=== PATIENT | female | born 1975 | race Caucasian/White ===

== ENCOUNTER 2019-08-27 18:38 | Emergency (ER) | payer MEDICARE, SELFPAY ==
[2019-08-27 19:17] VITALS: BP 140/91; PULSE 91; RESP 18; TEMP 36.9; O2SAT 100; BMI 32.5
[2019-08-27 19:19] VITALS: BP 140/91; PULSE 91; RESP 18; TEMP 36.9; O2SAT 100; BMI 32.5
--- NOTE | 2019-08-27 19:28 | CT_ITS ---
PROCEDURE: CT ABDOMEN PELVIS WO CON CLINICAL INDICATION: r/o stone Right flank pain, nausea and vomiting, history of previous kidney stones COMPARISON: No exams were available for comparison TECHNIQUE: Axial images obtained with sagittal and coronal reformats. All CT scans at the facility use one or more dose reduction, viz: automated exposure control, ma/kV adjustment per patient size (including targeted exams where dose is matched to indication, i.e. head), or iterative reconstruction technique. FINDINGS: Lower thorax: No acute finding ABDOMEN: Liver: No masses or biliary dilatation. Gallbladder: Nondistended. No radio opaque stones. Pancreas: No masses or peripancreatic fluid collections. Spleen: unremarkable Adrenals: unremarkable Kidneys/ureters: unremarkable ABDOMEN & PELVIS: Stomach bowel: There is a gastric lap band noted with a moderate amount of ingested food particles in the stomach above the level of the gastric lap band. This suggests that the left band has slipped inferiorly from its original placement. There is a moderate size sliding hiatal hernia. Small bowel appears normal. There is large amount stool in the ascending colon hepatic flexure and transverse colon. The descending and sigmoid colon are decompressed. Peritoneum: No abnormal fluid collections. No obvious inflammatory changes. No free air. There is a tiny umbilical hernia containing fat only. Lymph nodes: No enlarged lymph nodes apparent. Vasculature: No evidence of abdominal aortic aneurysm. No retroperitoneal hemorrhage evident. Bones: No acute fracture PELVIS: Reproductive: unremarkable Bladder: The urinary bladder is partially decompressed, there is no free fluid in the pelvis. Appendix: Post appendectomy. IMPRESSION: Apparent slippage of the gastric lap band as noted large amount of right-sided stool as indicated, no renal or ureteral calculi identified. Dictated by: Dr. Omer Carter MD 08/28/2019 08:[address] Omer Carter MD in [place] 08/28/2019 08:23
[2019-08-27 19:33] LABS: Microscopic, Urine URINE MICROSCOPIC (MICROSCOPIC)
[2019-08-27 19:38] LABS: Basophils % 0.4 % (0.1-2.0); Eosinophils # 0.3 K/mm3 (0.0-0.4); Eosinophils % 3.9 % (0.1-12.0); Lymphocytes # 2.2 K/mm3 (0.7-4.5); Lymphocytes % 34.1 % (10-50); Mean Corpuscular HGB Conc 28.5 g/dL (31.8-35.4); Mean Corpuscular Hemoglobin 16.5 pg (27.0-31.2); Mean Platelet Volume 7.7 fl (7.4-10.4); Monocytes # 0.3 K/mm3 (0.1-1.0); Monocytes % 4.8 % (1.7-9.3); Neutrophils # 3.6 K/mm3 (1.8-7.8); Neutrophils % 56.9 % (37.0-80.0); Platelet Count 442 K/mm3 (142-424); Red Cell Distribution Width 18.1 % (11.5-17.5); White Blood Count 6.4 K/mm3 (4.8-10.8)
[2019-08-27 19:39] LABS: Appearance,Urine SL CLOUDY (Clear); Blood, Urine Negative (Negative); Color,Urine YELLOW (Yellow); Glucose,Urine (UA) Negative (Negative); Ketones,Urine TRACE (Negative); Leukocyte Esterase,Urine Negative (Negative); Nitrate,Urine Negative (Negative); PH,Urine 6.5 (5.0-8.5); Protein,Urine Negative (Negative); Urobilinogen,Urine 0.2 EU/dl (0.2)
[2019-08-27 19:46] LABS: Hematocrit 27.2 % (37.0-47.0); Hemoglobin 7.8 g/dL (12.2-16.2)
[2019-08-27 19:48] LABS: Alanine Aminotransferase 9 U/L (12-78); Albumin Level 4.3 g/dl (3.5-5.0); Albumin/Globulin Ratio 1.2 (1.1-1.8); Alkaline Phosphatase 93 U/L (38-126); Anion Gap 11.6 mEq/L (5-15); Aspartate Amino Transferase 23 U/L (14-36); Bilirubin,Total 0.2 mg/dl (0.2-1.3); Blood Urea Nitrogen 7 mg/dl (7-17); Calcium 9.8 mg/dl (8.4-10.2); Carbon Dioxide 31 mmol/L (22.0-30.0); Chloride 97 mmol/L (98-107); Creatinine Clearance Estimated 197 mL/min (50-200); Estimated Glomerular Filt Rate 135 ml/min (>60); GFR (African American) 163 ML/MIN (>60); Globulin 3.7 g/dL (1.3-3.2); Glucose 112 mg/dl (74-100); Potassium 3.6 mmoL/L (3.5-5.1); Sodium 136 mmol/L (136-145)
[2019-08-27 19:49] LABS: Bilirubin,Urine Negative (Negative)
--- NOTE | 2019-08-27 19:49 | HMH.EDGENADL ---
ED Disposition Condition on Discharge: Good - Critical Care Critical Care Time: No <Edmundo Horner - Last Filed: 08/27/19 19:49> <James Umanzor - Last Filed: 08/28/19 00:31> Clinical Impression: Abdominal pain Qualifiers: Abdominal location: right upper quadrant Qualified Code(s): R10.11 - Right upper quadrant pain Anemia Qualifiers: Anemia type: unspecified type Qualified Code(s): D64.9 - Anemia, unspecified Disposition: Home, Self-Care Instructions: DI for Acute Pain -- Adult Additional Instructions: call pcp thursday for close follow up Referrals: James Kelley [Primary Care Provider] - Attestation: On 08/27/19, the high probability of a clinically significant, sudden or life threatening deterioration of the following system(s) required my full and direct attention, intervention and personal management. The time I documented below is in addition to time spent performing reported procedures but includes the following listed in this critical care notation. Medical Decision Making - Medical Records Medical records reviewed: Yes: I reviewed the patient's medical records. - Ron Inquiry Pt receiving controlled substance: No - Lab Data Lab results reviewed: Yes: I reviewed the patient's lab results. Result diagrams: 08/27/19 19:05 08/27/19 19:05 <Edmundo Horner - Last Filed: 08/27/19 19:49> - Lab Data Result diagrams: 08/27/19 19:05 08/27/19 19:05 - CT Data CT Scan: Abdomen, Pelvis Time Received: 00:[address] Reviewed: Yes: I have viewed the radiologist's interpretation Preliminary Findings: Abnormal (see report) <James Umanzor S - Last Filed: 08/28/19 00:31> Vital Signs: 08/27/19 19:17 08/27/19 19:19 08/27/19 20:24 Temperature 98.4 F 98.4 F Temperature Source Oral Oral Pulse Rate [Right Brachial] 91 H 91 H 81 Respiratory Rate 18 18 16 Blood Pressure [Right Arm] 140/91 H 140/91 H 128/80 Blood Pressure Mean [Right Arm] 107 107 96 Blood Pressure Source [Right Arm] Automatic Cuff Automatic Cuff Blood Pressure Position [Right Arm] Sitting Sitting 02 Sat by Pulse Oximetry 100 100 100 Oxygen Delivery Method Room Air Room Air Room Air 06/20/20 23:37 Temperature Temperature Source Pulse Rate [Right Brachial] 75 Respiratory Rate Blood Pressure [Right Arm] 165/72 H Blood Pressure Mean [Right Arm] 103 Blood Pressure Source [Right Arm] Blood Pressure Position [Right Arm] 02 Sat by Pulse Oximetry 100 Oxygen Delivery Method Room Air - Lab Data Lab Results 08/27/19 18:45: Urine HCG, Qual Negative 08/27/19 19:05: Urine Color Yellow, Urine Appearance Sl cloudy, Urine pH 6.5, Ur Specific [place] 1.020, Urine Protein Negative, Urine Glucose (UA) Negative, Urine Ketones Trace, Urine Blood Negative, Urine Nitrate Negative, Urine Bilirubin Negative, Urine Urobilinogen 0.2, Ur Leukocyte Esterase Negative, Ur Squamous Epith Cells 5-10 08/27/19 19:05: WBC 6.4, RBC 4.70, Hgb 7.8 L*, Hct 27.2 L, MCV 58.0 L, MCH 16.5 L, MCHC 28.5 L, RDW 18.1 H, Plt Count 442 H, MPV 7.7, Neut % (Auto) 56.9, Lymph % (Auto) 34.1, [place] % (Auto) 4.8, Eos % (Auto) 3.9, Baso % (Auto) 0.4, Neut # (Auto) 3.6, Lymph # (Auto) 2.2, [place] # (Auto) 0.3, Eos # (Auto) 0.3, Baso # (Auto) 0.0 08/27/19 19:05: Sodium 136, Potassium 3.6, Chloride 97 L, Carbon Dioxide 31 H, Anion Gap 11.6, BUN 7, Creatinine 0.50 L, Estimated Creat Clear 197, Estimated GFR 135, Est GFR ( Amer) 163, Glucose 112 H, Calcium 9.8, Total Bilirubin 0.2, AST 23, ALT 9 L, Alkaline Phosphatase 93, Total Protein 8.0, Albumin 4.3, Globulin 3.7 H, Albumin/Globulin Ratio 1.2 08/27/19 19:05: Amylase 52 08/27/19 19:05: Lipase 11 L Orders (Tests/Meds): ED MEDICATIONS Generic Name Dose Route Start Last Admin Trade Name Freq PRN Reason Stop Dose Admin Sodium Chloride 1,000 mls @ 999 mls/hr 08/27/19 19:30 08/27/19 19:32 Sod Chlor 0.9% 1000ml Bag IV 08/27/19 20:30 999 mls/hr .Q1H1M MCKENNA Administration Sodium Chloride 500 mls @ 9
[2019-08-27 20:24] VITALS: BP 128/80; PULSE 81; RESP 16; O2SAT 100
--- NOTE | 2019-08-27 20:38 | PC.NURSE ---
urine preg added. lab notified.
[2019-08-27 20:46] LABS: Urine Pregnancy, HCG Qual. Negative (Negative)
--- NOTE | 2019-08-27 20:47 | PC.NURSE ---
rad notified of neg test
--- NOTE | 2019-08-27 21:50 | CT_ITS ---
PROCEDURE: CT ABDOMEN with oral contrast CLINICAL INDICATION: abd pain COMPARISON: CT scan abdomen and pelvis without contrast same date TECHNIQUE: IV Contrast: 1 Oral Contrast 20ml Gastroview Axial images obtained with sagittal and coronal reformats. All CT scans at the facility use one or more dose reduction, viz: automated exposure control, ma/kV adjustment per patient size (including targeted exams where dose is matched to indication, i.e. head), or iterative reconstruction technique. FINDINGS: Lower thorax: No acute finding ABDOMEN: Liver: No masses or biliary dilatation. Gallbladder: Nondistended. No radio opaque stones. Pancreas: No masses or peripancreatic fluid collections. Spleen: unremarkable Adrenals: unremarkable Kidneys/ureters: unremarkable ABDOMEN : Stomach bowel: Oral contrast opacifies the stomach mixed with moderate amount of ingested food particles and fluid. As mentioned previously the gastric lap band has slipped inferiorly but there is no definite evidence of erosion of the band through the gastric wall and there is no leakage of oral contrast. A moderate size sliding hiatal hernia is noted. The visualized portion of the contrast filled small bowel appears normal. There is a large amount stool in the ascending colon. The lower descending and sigmoid colon are not included on the images. Peritoneum: No abnormal fluid collections. No obvious inflammatory changes. No free air. There is a tiny umbilical hernia containing fat only. Lymph nodes: No enlarged lymph nodes apparent. Vasculature: No evidence of abdominal aortic aneurysm. No retroperitoneal hemorrhage evident. Bones: Mild degenerate changes lower lumbar spine. IMPRESSION: The gastric lap band has slipped to the midportion of the body of the stomach but there is no evidence of erosion of the band through the gastric wall, large amount of ingested food particles are seen proximal to the gastric lap band Dictated by: Dr. Omer Carter MD 08/28/2019 09:[address] Omer Carter MD in [place] 08/28/2019 09:48
[2019-08-27 22:00] LABS: Amylase 52 U/L (30-110); Lipase 11 U/L (23-300)
[2019-08-27 23:37] VITALS: BP 165/72; PULSE 75; O2SAT 100
--- NOTE | 2019-08-28 00:18 | PC.NURSE ---
MD at the bedside discussing test results with patient.
[2019-08-28 00:25] LABS: Occult Blood,Stool Negative (Negative)
[2019-08-28 00:34] VITALS: BP 140/55; PULSE 111; RESP 17; TEMP 36.8; O2SAT 99
== END 2019-08-28 00:37 | disposition home or self-care (01) ==
PROVIDERS: Emergency Medicine; Emergency Provider Family Medicine; PCP Internal Medicine Cardiovascular Disease
DX: R10.11 Right upper quadrant pain (principal); R10.31 Right lower quadrant pain; D64.9 Anemia, unspecified
CPT/HCPCS: 74150; 74176; 80053; 81001; 81025; 82150; 82272; 83690; 85025; 96365; 96366; 96375; 99283; 99284; G0328; J2405

== ENCOUNTER 2020-10-25 13:38 | Emergency (ER) | payer MEDICARE, SELFPAY ==
[2020-10-25 13:39] VITALS: BP 135/42; PULSE 80; RESP 16; TEMP 37.1; O2SAT 100; BMI 26.6
--- NOTE | 2020-10-25 14:54 | HMH.EDUTC ---
[facility] [place] Clinical Impression: Bronchitis Pharyngitis Qualifiers: Pharyngitis/tonsillitis etiology: unspecified etiology Qualified Code(s): J02.9 - Acute pharyngitis, unspecified Disposition: Home, Self-Care Condition on Discharge: Good Instructions: DI for Pharyngitis/Tonsillopharyngitis -- Adult, Preventing the Spread of Coronavirus Discharge Instructions Additional Instructions: Drink plenty of fluids. Take tylenol or ibuprofen for pain or fever. Take the medications as directed. Follow up with your regular doctor. GO TO THE ER FOR ANY WORSENING SYMPTOMS Quarantine until you know the results of your covid-19 test. If it is positive, the health department should call you and give you further instructions about your length of Quarantine and other thing. Prescriptions: Brompheniramine/Pseudoephed/Dm [Bromfed Dm Cough Syrup] 5 ml PO Q6HP PRN #240 syrup PRN Reason: Cough Transmission Status: Received by [facility]/pharmacy #[id number] Amoxicillin/Potassium Clav [Augmentin 500mg tab] 500 mg PO TID #30 tab Transmission Status: Received by [facility]/pharmacy #[id number] predniSONE [Deltasone 10mg tablet] 10 mg PO BID 3 Days #6 tab Transmission Status: Received by [facility]/pharmacy #[id number] Referrals: James Kelley [Primary Care Provider] - Forms: Work/School Release Time of Disposition: 14:59 Medical Decision Making - Medical Records Medical records reviewed: No: I reviewed the patient's medical records. - Ron Inquiry Pt receiving controlled substance: No Vital Signs: 10/25/20 13:39 10/25/20 15:04 Temperature 98.8 F 98.8 F Temperature Source Oral Pulse Rate 80 Pulse Rate [Right] 80 Respiratory Rate 16 16 Blood Pressure 135/42 L Blood Pressure [Right Arm] 135/42 L Blood Pressure Mean [Right Arm] 73 02 Sat by Pulse Oximetry 100 - Lab Data Lab results reviewed: Yes: I reviewed the patient's lab results. [facility] [place] - General Stated complaint: throat sore and swollen Time Seen by Provider: 10/25/20 14:54 Description of Symptoms (Recalled from Triage Doc. by RN): pt c/o sore throat and coughing up yellow HEENT Symptoms (Recalled from RN notes): Yes Resp Symptoms (Recalled from RN notes): Yes Skin Symptoms (Recalled from RN notes): No MS Symptoms (Recalled from RN notes): No Functional Status (Recalled from RN notes): na - History of Present Illness Provider Complaint: She c/o sore throat, cough and congestion for the past 3 days. - Related Data Previous Rx's Medication Instructions Recorded amoxicillin 500 mg tablet 500 mg PO BID 10 Days #20 tab 11/15/19 Amoxicillin/Potassium Clav 500 mg PO TID #30 tab 10/25/20 [Augmentin 500mg tab] Brompheniramine/Pseudoephed/Dm 5 ml PO Q6HP PRN #240 syrup 10/25/20 [Bromfed Dm Cough Syrup] predniSONE [Deltasone 10mg tablet] 10 mg PO BID 3 Days #6 tab 10/25/20 Allergies Allergy/AdvReac Type Severity Reaction Status Date / Time No Known Allergies Allergy Verified 11/15/19 20:18 - Worker's Comp Is this a Worker's Comp case?: No [facility] History - Hepatitis A Screen Drug use history?: No High risk sexual behaviors?: No History of sexually transmitted infection?: No Currently employed?: No Childcare worker?: No Do you have indoor plumbing?: No Do you have electricity?: No Attestation statement:: This patient has been screened for Hepatitis A risk factors. I have reviewed the patient's past medical history: Yes Other Surgeries: Yes: No Previous Surgery - Social History Smoking Status: Never smoker Alcohol Intake: never Alcohol Intake Frequency:: 0-2 drinks per day Substance Use Type: denies use Occupational Status: other Housing: house Household Members: family Family Hx:: No significant family history ROS Obtained: Yes All systems reviewed & no additional complaints - Constitutional Constitutional: Reports as per HPI - Eyes Eyes: Denies eye discharge - ENT Ears, Nose, Mouth, and Throat: Reports as per HP
[2020-10-25 15:04] VITALS: BP 135/42; PULSE 80; RESP 16; TEMP 37.1; O2SAT 100
== END 2020-10-25 15:12 | disposition home or self-care (01) ==
PROVIDERS: Emergency Provider Nurse Practitioner Family; PCP Internal Medicine Cardiovascular Disease
DX: J20.9 Acute bronchitis, unspecified (principal); Z20.822 Contact with and (suspected) exposure to COVID-19
CPT/HCPCS: G0463; 99202; U0003

== ENCOUNTER 2022-04-24 11:11 | Inpatient (IN) | payer MEDICARE, MEDICAID, SELFPAY ==
[2022-04-24] VITALS (29 sets, daily range): BP systolic 112–153; BP diastolic 44–98; PULSE 87–117; RESP 13–24; TEMP 36.6–37.4; O2SAT 95–105; BMI 26.1; BMI 24.6
--- NOTE | 2022-04-24 11:09 | ECG_ITS ---
APPROVED REPORT Exam: Resting ECG HR:103 bpm ECG Measurements Heart Rate 103 AXES IN 122 P 65 QRSd 81 QRS 49 QT 309 T 74 QTc 369 Conclusion SINUS TACHYCARDIA ABNORMAL RHYTHM ECG UNCONFIRMED REPORT Electronically signed by : Randolph Curtis MD 04/25/2022 08:58:16
--- NOTE | 2022-04-24 11:13 | XR_ITS ---
FINAL REPORT CLINICAL HISTORY: CP, SOA, weakness x 1 wk w fever FINDINGS: A portable view of the chest is obtained. Cardiac and mediastinal silhouettes are normal. There is right basilar opacity, favor atelectasis however early pneumonia is not excluded. Otherwise lungs are clear. There is no pleural effusion or pneumothorax. IMPRESSION: Right basilar opacity, favor atelectasis however early pneumonia is not excluded. Reviewed, Interpreted and Dictated by Rosalina Mcpherson MD Transcribed by Janell Orozco Authenticated and [facility]
--- NOTE | 2022-04-24 11:41 | PC.NURSE ---
rad here for port cxr
--- NOTE | 2022-04-24 11:42 | PC.NURSE ---
Radiology doing chest xray in room.
[2022-04-24 11:44] LABS: Basophils # 0.2 K/mm3 (0-0.2); Basophils % 1.4 % (0.1-2.0); Eosinophils # 0.5 K/mm3 (0.0-0.4); Eosinophils % 3.6 % (0.1-12.0); Lymphocytes # 3.7 K/mm3 (0.7-4.5); Lymphocytes % 25.1 % (10-50); Mean Platelet Volume 6.8 fl (7.4-10.4); Monocytes # 0.8 K/mm3 (0.1-1.0); Monocytes % 5.5 % (1.7-9.3); Neutrophils # 9.6 K/mm3 (1.8-7.8); Neutrophils % 64.3 % (37.0-80.0); Platelet Count 631 K/mm3 (142-424); Red Blood Count 4.56 M/mm3 (4.20-5.40); Red Cell Distribution Width 21.2 % (11.5-17.5); White Blood Count 14.9 K/mm3 (4.8-10.8)
[2022-04-24 11:48] LABS: Chloride 95 mmol/L (98-107); Sodium 136 mmol/L (136-145)
[2022-04-24 11:49] LABS: Mean Corpuscular Hemoglobin 11.1 pg (27.0-31.2); Mean Corpuscular Volume 44.5 fl (81-99); Potassium 3.6 mmoL/L (3.5-5.1)
[2022-04-24 11:50] LABS: Hematocrit 20.3 % (37.0-47.0); Hemoglobin 5.1 g/dL (12.2-16.2)
[2022-04-24 11:51] LABS: Blood Urea Nitrogen 14 mg/dl (7-17); Creatinine Clearance Estimated 129 mL/min (50-200); Estimated Glomerular Filt Rate 108 ml/min (>60); GFR (African American) 131 ML/MIN (>60)
[2022-04-24 11:52] LABS: Anion Gap 12.6 mEq/L (5-15); Calcium 7.8 mg/dl (8.4-10.2); Carbon Dioxide 32 mmol/L (22.0-30.0); Glucose 106 mg/dl (74-100)
--- NOTE | 2022-04-24 11:53 | PC.NURSE ---
MD notified of hemoglobin 5.1, hematocrit 20.3. order to type and screen placed.
[2022-04-24 11:55] LABS: Lactic Acid 2.1 mmol/L (0.7-2.1)
--- NOTE | 2022-04-24 12:00 | PC.NURSE ---
DR BRYAN AT BEDSIDE
--- NOTE | 2022-04-24 12:05 | HMH.EDGENADL ---
Discharge Plan Disposition Patient Disposition: Admitted As Inpatient Condition: Fair Clinical Impressions Clinical Impression: Anemia, CAP (community acquired pneumonia), Gastric band slippage, Dilatation of esophagus Discharge ED Provider: Garcia Nogueira General Adult HPI General Chief complaint: PAIN Stated complaint: CHEST PAIN Time Seen by Provider: 04/24/22 12:00 Mode of Arrival: Ambulatory Source of Information: Patient Limitations: No Limitations Description of Symptoms (Recalled from ER Triage Doc. by RN): pt to ed c/o pain with inspiration. pt states she was dx with pneumonia x1 week ago and was given a steroid pack from pcp. pt states she has pain that radiates from the right side of her ribs to the center of her chest when she breathes or coughs. pt states the pain is sharp in nature and is constant. History of Present Illness HPI narrative: Patient states that she has been sick for 1 week. She has had severe right-sided chest pain in the posterior right chest in the region of her shoulder blade that worsens with breathing and movement.. She has had a cough, feels like there is phlegm in her airways, but has not coughed anything up. She has had fevers up to 102.8. She says that she saw her primary care provider and Dr. Umanzor's office and was given a Z-Hector but has not improved at all. Also states that she has gained 20 pounds in 1 week. Related Data Home Medications Medication Instructions Recorded Confirmed ibuprofen 600 mg tablet 600 mg PO Q6HP PRN Inflammation 11/09/20 04/24/22 amlodipine 5 mg-benazepril 20 mg 1 cap PO DAILY BLOOD PRESSURE 04/24/22 04/24/22 capsule (Lotrel) buprenorphine 8 mg-naloxone 2 mg 2 film sublingual DAILY WITHDRAWAL 04/24/22 04/24/22 sublingual film (Suboxone) clonazepam 1 mg tablet (Klonopin) 1 mg PO BIDP PRN anxiety 04/24/22 04/24/22 ondansetron 4 mg disintegrating 4 mg PO Q8HP PRN nausea and 04/24/22 04/24/22 tablet vomiting pantoprazole 40 mg tablet,delayed 40 mg PO DAILY GERD 04/24/22 04/24/22 release (Protonix) Previous Rx's Medication Instructions Recorded benzonatate 100 mg capsule 100 mg PO TID PRN cough #30 caps 04/18/22 Allergies Allergy/AdvReac Type Severity Reaction Status Date / Time No Known Allergies Allergy Verified 04/17/22 13:45 [facility] Disclaimer: The information contained in this section may have been updated after the patient was seen, as this information can be updated by other users. Medical History (Updated 04/24/22 @ 15:07 by Charlie Christianson MD) Anxiety Chronic, continuous use of opioids Chronically on benzodiazepine therapy Essential hypertension Iron deficiency anemia Tobacco dependence Surgical History (Updated 04/24/22 @ 15:00 by Charlie Christianson MD) History of appendectomy History of oophorectomy LAP-BAND surgery status Family History (Updated 04/24/22 @ 15:00 by Charlie Christianson MD) Mother Hypertension Father Alcoholism Social History Smoking Status: Current every day smoker alcohol intake: never substance use type: denies use current occupational status: other Travel in the last 8 weeks: None household members: family housing: house ROS Obtained: Yes Systems reviewed as appropriate & no additional complaints except as documented Constitutional Constitutional: Reports fever(s), Denies headache(s), Denies weakness and Reports weight gain ENT Ears, Nose, Mouth, and Throat: Denies headache(s), Denies nasal discharge and Denies sore throat Cardiovascular Cardiovascular: Reports chest pain Respiratory Respiratory: Denies shortness of breath and Reports cough Gastrointestinal Gastrointestingal: Denies abdominal pain, constipation, diarrhea or vomiting Genitourinary Female Genitourinary: Denies difficulty voiding, Denies dysuria and Denies flank pain Musculoskeletal Musculoskeletal: Denies numbness Neurologic Neurologic: Yg
[2022-04-24 12:08] LABS: Coronavirus 19, PCR Not Detected (NotDetected); Influenza A, PCR Not Detected (NotDetected); Influenza B, PCR Not Detected (NotDetected)
[2022-04-24 12:19] LABS: Troponin I < 0.01 ng/ml (0.00-0.034)
[2022-04-24 12:26] LABS: Alanine Aminotransferase 15 U/L (12-78); Albumin Level 3.5 g/dl (3.5-5.0); Alkaline Phosphatase 107 U/L (38-126); Aspartate Amino Transferase 22 U/L (14-36); Bilirubin,Direct 0.3 mg/dl (0.0-0.4); Bilirubin,Indirect 0.1 mg/dL (0.0-0.9); Bilirubin,Total 0.4 mg/dl (0.2-1.3); Bilirubin,Unconjugated 0.1 mg/dL (0.0-1.1); Total Protein,Serum 6.2 g/dl (6.3-8.2)
[2022-04-24 12:31] LABS: D-Dimer 0.99 ug/mL (0.0-0.5)
[2022-04-24 12:32] LABS: Occult Blood,Stool Negative (Negative)
[2022-04-24 12:37] LABS: NT Pro Brain Natriuretic Pep. 160 pg/mL (0-125)
--- NOTE | 2022-04-24 12:37 | CT_ITS ---
FINAL REPORT TECHNIQUE: Axial imaging of the chest is obtained after the administration of contrast. 3-D MIP reformatted images were also obtained and reviewed per PE protocol. This study was performed with techniques to keep radiation doses as low as reasonably achievable (ALARA). Individualized dose reduction techniques using automated exposure control or adjustment of mA and/or kV according to the patient's size were employed. CLINICAL HISTORY: chest pain, SOA, elev d-dimer COMPARISON: 08/27/2019 FINDINGS: The pulmonary arteries are well filled. There is no evidence of pulmonary embolus. There is no aortic dissection or intimal flap. The heart is mildly enlarged. There is a small right pleural effusion. No left effusion or pericardial effusion is identified. There is no axillary lymphadenopathy. There is a right paratracheal lymph node. Index lesion measures 2.7 cm. There is right hilar lymphadenopathy measuring 2.5 cm. The esophagus is dilated and filled with fluid and debris. This is new since the prior. Patient is at risk for aspiration. The GE junction is patent but there is distal esophageal wall thickening. The gastric band is abnormally position more toward the body of the stomach. Finding is unchanged since 2020. There is ground-glass opacity and airspace disease in the inferior right upper lobe. Left upper lobe mixed density nodule measures 8 mm and is well seen on image number 49 with several additional left upper lobe irregular nodules. Limited evaluation of the upper abdomen is without acute abnormality. There is no acute osseous abnormality. IMPRESSION: No evidence of pulmonary embolism or aortic dissection. Very distended esophagus containing fluid and debris with disc placed gastric band. Band however stable since 2020 but esophageal dilatation is new since the previous exam. Right upper lobe pneumonia. Several irregular left upper lobe pulmonary nodules, favor infectious or inflammatory. Reviewed, Interpreted and Dictated by Rosalina Mcpherson MD Transcribed by Juani Osborn Authenticated and [facility]
--- NOTE | 2022-04-24 13:12 | PC.NURSE ---
Pt going to CT
--- NOTE | 2022-04-24 13:21 | PC.NURSE ---
Lab called and blood is ready to be picked up for patient.
--- NOTE | 2022-04-24 13:26 | PC.NURSE ---
Pt back from CT
--- NOTE | 2022-04-24 13:55 | PC.NURSE ---
care management notified of admission
--- NOTE | 2022-04-24 14:02 | PC.NURSE ---
dr. ceja at
[2022-04-24 14:04] LABS: Microscopic, Urine URINE MICROSCOPIC (MICROSCOPIC)
[2022-04-24 14:05] LABS: Appearance,Urine CLEAR (Clear); Bilirubin,Urine Negative (Negative); Blood, Urine Negative (Negative); Glucose,Urine (UA) Negative (Negative); Ketones,Urine Negative (Negative); Leukocyte Esterase,Urine TRACE (Negative); Nitrate,Urine Negative (Negative); PH,Urine 6.5 (5.0-8.5); Protein,Urine Negative (Negative); Urobilinogen,Urine 0.2 EU/dl (0.2)
[2022-04-24 14:08] LABS: Color,Urine Straw (Yellow)
--- NOTE | 2022-04-24 14:19 | PC.NURSE ---
dr. robertson at BS
--- NOTE | 2022-04-24 14:21 | PC.NURSE ---
attempted to call report to second floor no answer
--- NOTE | 2022-04-24 14:22 | CT_ITS ---
PROCEDURE INFORMATION: Exam: CT Abdomen And Pelvis With Contrast Exam date and time: 04/24/2022 7:17 PM Age: 46 years old Clinical indication: Abdominal pain; Prior surgery; Surgery type: Lap band; Additional info: Hgb 5.1 and abdominal pain TECHNIQUE: Imaging protocol: Computed tomography of the abdomen and pelvis with contrast. Radiation optimization: All CT scans at this facility use at least one of these dose optimization techniques: automated exposure control; mA and/or kV adjustment per patient size (includes targeted exams where dose is matched to clinical indication); or iterative reconstruction. Contrast material: ISOVUE; Contrast volume: 75 ml; Contrast route: IV; Other protocol: This patient has received [address] and 0 known cardiac nuclear medicine studies in the 12 months prior to the current study. COMPARISON: CT ABDOMEN WO CON 08/27/2019 11:16 PM FINDINGS: Lungs: There is mild dependent atelectasis in the lower lungs. Pleural spaces: There is a small right pleural effusion. Mediastinal space: The distal esophagus and proximal stomach exhibit apparent wall thickening and mucosal enhancement Liver: Normal. No mass. Gallbladder and bile ducts: Normal. No calcified stones. No ductal dilation. Pancreas: Normal. No ductal dilation. Spleen: Normal. No splenomegaly. Adrenal glands: Normal. No mass. Kidneys and ureters: Normal. No hydronephrosis. Stomach and bowel: Gastric band is stable in position, located between the gastric fundus and body. Band appears stable in orientation. Multiple small bowel loops in the left upper quadrant appear diffusely thick-walled, raising suspicion for enteritis. No evidence of bowel obstruction. Appendix: No evidence of appendicitis. Intraperitoneal space: Unremarkable. No free air. No significant fluid collection. Vasculature: Unremarkable. No abdominal aortic aneurysm. Lymph nodes: Unremarkable. No enlarged lymph nodes. Urinary bladder: Unremarkable as visualized. Reproductive: Unremarkable as visualized. Bones/joints: Unremarkable. No acute fracture. Soft tissues: There is moderate diffuse body wall edema. IMPRESSION: 1. Stable appearance, position and orientation of the gastric band which is located within the gastric fundus and body. 2. Apparent wall thickening of the distal esophagus, stomach and multiple proximal small bowel loops raising concern for gastroenteritis and possible esophagitis. No evidence of bowel obstruction 3. Mild findings of anasarca including diffuse body wall edema and small right pleural effusion
--- NOTE | 2022-04-24 14:32 | PC.NURSE ---
report called to arnav bell
--- NOTE | 2022-04-24 14:35 | PC.NURSE ---
ER given pt preliminary CT report at this time
--- NOTE | 2022-04-24 14:39 | EXP.HP ---
History of Present Illness *Admission Date: 04/24/22 *Reason for visit:: Chief complaint: Epigastric pain *History of present illness: This is a 46-year-old female that presents to [facility] emergency department with concerns of epigastric and chest pain for several days not resolving with recent medical provider prescribed therapy. She reports that she was diagnosed with pneumonia and treated with a Z-Hector and steroid pack and not feeling better. She has been taking ibuprofen 600 mg orally every 6 hours for the past week. She is now experiencing weakness, lightheadedness with ongoing cough with shortness of air. Her shortness of air increases with exertion. She reports a week ago that she had diarrhea but it resolved after taking the Z-Hectro. She continues to experience nausea and vomiting. She reports associated fever and subjective chills. She has identified no associated hematemesis, melena or hematochezia. She also describes generalized abdominal pain that radiates to all 4 quadrants. She has had her appendix removed. She reports no menstrual cycle in 2 years. She reports a past history of constipation. Her past medical history significant for hypertension, opioid dependence, generalized anxiety disorder and chronic benzodiazepine therapy. In the ED her CBC identifies a leukocytosis with a hemoglobin of 5.1, hematocrit 20.3 and platelet count 631. Her MCV is 44. Her electrolytes and creatinine are normal. Her lactic acid is 2.1. Her LFTs are normal. Her stool guaiac is negative. Her chest x-ray identifies concerns with pneumonia and her ECG identifies sinus tachycardia with a rate of 103 and QTc 369 ms. she is receiving 2 units of packed red blood cells. [facility] Medical History (Updated 04/24/22 @ 15:07 by Charlie Christianson MD) Anxiety Chronic, continuous use of opioids Chronically on benzodiazepine therapy Essential hypertension Iron deficiency anemia Tobacco dependence Surgical History (Updated 04/24/22 @ 15:00 by Charlie Christianson MD) History of appendectomy History of oophorectomy LAP-BAND surgery status Family History (Updated 04/24/22 @ 15:00 by Charlie Christianson MD) Mother Hypertension Father Alcoholism Social History Smoking Status: Current every day smoker alcohol intake: never substance use type: denies use current occupational status: other Travel in the last 8 weeks: None household members: family housing: house Review of Systems Review of Systems Review of systems:: pertinent systems reviewed and negative unless documented below Constitutional Constitutional: Reports chills, Reports fever(s), Denies headache(s) and Reports lethargy ENT Ears, Nose, Mouth, and Throat: Reports dysphagia and Denies headache(s) *Cardiovascular Cardiovascular: Reports dyspnea on exertion *Respiratory Respiratory: Reports dyspnea on exertion *Gastrointestinal Gastrointestinal: Reports change in stool character, Denies coffee ground emesis, Reports constipation, Reports dysphagia, Reports early satiety, Reports heartburn, Denies hematemesis, Denies hematochezia, Denies loose stools, Denies melena, Reports nausea and Reports vomiting *Musculoskeletal Musculoskeletal: Denies numbness *Neurologic Neurologic: Denies headache(s) and Denies numbness Meds Home Medications and Allergies Home Medications Medication Instructions Recorded Confirmed Type ibuprofen 600 mg tablet 600 mg PO 11/09/20 04/17/22 History sertraline 50 mg tablet 50 mg PO DAILY 11/09/20 04/17/22 History tizanidine 4 mg tablet 4 mg PO 11/09/20 04/17/22 History pantoprazole 40 mg tablet,delayed 40 mg PO DAILY #90 tabs 01/22/22 04/17/22 Rx release (Protonix) benzonatate 100 mg capsule 100 mg PO TID PRN cough #30 caps 04/18/22 04/18/22 Rx ondansetron 4 mg disintegrating 4 mg PO Q8H PRN nausea and 04/18/22 04/18/22 Rx tablet vomiting #30 tabs prednisone 20 mg tablet
--- NOTE | 2022-04-24 14:45 | PC.NURSE ---
PT GOING UP FOR ADMISSION
--- NOTE | 2022-04-24 14:56 | EXP.SURG.CON ---
History of Present Illness *Admission Date: 04/24/22 *Reason for visit:: Chest pain, anemia *History of present illness: Patient is a 46-year-old female from [place] with previous history of laparoscopic band done in 2008. Recently she has had pneumonia which has been treated as an outpatient with prednisone and antibiotics. She has had some ongoing symptoms with some right-sided chest pain which has been sharp in nature. She is also had fevers and has been taking ibuprofen. Imaging revealed findings of right upper lobe pneumonia. Patient does have a history of anemia. She had a hemoglobin in August 2019 of 7.8. Hemoglobin on this admission is 5.1. Patient does state that she has previously had colonoscopies. She does not recall an upper endoscopy. She denies any symptoms of hematochezia or melena. Of note, she has a BUN of 14 with a creatinine of 0.6. [facility] Disclaimer: The information contained in this section may have been updated after the patient was seen, as this information can be updated by other users. Medical History (Updated 04/24/22 @ 15:00 by Charlie Christianson MD) Anxiety Chronic, continuous use of opioids Chronically on benzodiazepine therapy Essential hypertension Iron deficiency anemia Tobacco dependence Surgical History (Updated 04/24/22 @ 15:00 by Charlie Christianson MD) History of appendectomy History of oophorectomy LAP-BAND surgery status Family History (Updated 04/24/22 @ 15:00 by Charlie Christianson MD) Father Alcoholism Father Hypertension Mother Social History Smoking Status: Current every day smoker alcohol intake: never substance use type: denies use current occupational status: other Travel in the last 8 weeks: None household members: family housing: house Review of Systems Constitutional Constitutional: Denies headache(s) and Denies weakness ENT Ears, Nose, Mouth, and Throat: Denies headache(s) *Musculoskeletal Musculoskeletal: Denies numbness *Neurologic Neurologic: Denies headache(s), Denies numbness and Denies weakness Meds Home Medications and Allergies Home Medications Medication Instructions Recorded Confirmed Type buprenorphine 8 mg-naloxone 2 mg 3 film sublingual DAILY 11/09/20 04/17/22 History sublingual film (Suboxone) hydrochlorothiazide 12.5 mg capsule 12.5 mg PO DAILY 11/09/20 04/17/22 History ibuprofen 600 mg tablet 600 mg PO 11/09/20 04/17/22 History sertraline 50 mg tablet 50 mg PO DAILY 11/09/20 04/17/22 History tizanidine 4 mg tablet 4 mg PO 11/09/20 04/17/22 History diphenoxylate-atropine 2.5 1 tab PO BID PRN diarrhea #10 tabs 06/07/21 04/17/22 Rx mg-0.025 mg tablet (Lomotil) furosemide 20 mg tablet 20 mg PO DAILY #30 tabs 10/25/21 04/17/22 Rx pantoprazole 40 mg tablet,delayed 40 mg PO DAILY #90 tabs 01/22/22 04/17/22 Rx release (Protonix) amlodipine 5 mg-benazepril 20 mg 1 cap PO DAILY #90 caps 04/18/22 04/18/22 Rx capsule (Lotrel) azithromycin 250 mg tablet See Rx Instructions PO .COMPLEX #6 04/18/22 04/18/22 Rx tabs benzonatate 100 mg capsule 100 mg PO TID PRN cough #30 caps 04/18/22 04/18/22 Rx clonazepam 1 mg tablet (Klonopin) 1 mg PO BID PRN anxiety #30 tabs 04/18/22 04/18/22 Rx ondansetron 4 mg disintegrating 4 mg PO Q8H PRN nausea and 04/18/22 04/18/22 Rx tablet vomiting #30 tabs prednisone 20 mg tablet 20 mg PO BID 5 days #10 tabs 04/18/22 04/18/22 Rx New Prescriptions to Start Prescriptions: Allergies Allergy/AdvReac Type Severity Reaction Status Date / Time No Known Allergies Allergy Verified 04/17/22 13:45 Exam (Inpt) Vital signs and Labs for Last 24 Hours: Temp Pulse Resp BP Pulse Ox 99.1 F 99 H 17 130/73 98 04/24/22 14:45 04/24/22 14:45 04/24/22 14:45 04/24/22 14:45 04/24/22 14:40 Laboratory Results - last 24 hr 04/24/22 11:10: SARS-CoV-2 (PCR) Not detected, Influenza A Untype (PCR) Not detected, Influenza Type
[2022-04-24 14:58] LABS: Bacteria,Urine Trace /lpf; Yeast,Urine Occasional /lpf
[2022-04-24 15:20] LABS: Troponin I < 0.01 ng/ml (0.00-0.034)
[2022-04-24 15:21] LABS: Procalcitonin 0.119 ng/mL (0.0-2.0)
[2022-04-24 15:23] LABS: Iron 12 ug/dL (37-170)
[2022-04-24 15:23] LABS: Lipase 21 U/L (23-300)
[2022-04-24 15:32] LABS: Total Iron Binding Capacity 401 ug/dL (265-497)
[2022-04-24 15:38] LABS: Reflex Lactic Add Lactic Reflex
[2022-04-24 15:53] LABS: Vitamin B12 604 pg/mL (239-931)
[2022-04-24 15:59] LABS: Ferritin 4.76 ng/ml (6.24-137)
--- NOTE | 2022-04-24 18:03 | PC.NURSE ---
1725: Entered patient's room to attempt an additional IV site as patient had blood infusing in established IV in the LAC. Patient sitting on side of bed tearful. Patient reports that her IV hurts. I assessed IV site and IV was infiltrated. I immediately stopped blood transfusion and notified primary RN, Dawn Ambrosio. Patient reports she is a difficult stick and it was noted that patient had been stuck several times by primary RN and Leatha Saba RN. Rosa Leonardo RN called to bedside with Ultrasound machine to place U/S guided IV. Rosa Leonardo RN placed an 18g U/S guided IV to RAC. Rosa Leonardo RN placed a 22g IV to the left FA. Blood Transfusion hooked to IV in the RAC and resumed at 250ml/hr. Patient tolerating transfusion well; reports no pain with infusion. Left arm elevated on a pillow and ice pack placed to infiltration site. I offered to get the patient another supper tray as she was unable to eat hers when it arrived and she stated she would like to have one. PETER Chopra notified and tray will be obtained.
[2022-04-24 18:20] LABS: Lactic Acid Follow Up (RFLX 1) 1.3 mmol/L (0.7-2.1)
--- NOTE | 2022-04-24 18:39 | PC.NURSE ---
1839 Pt counseled about chronic suboxone RX and we discussed the need to increase her MME to assist with pain control. Pt rates pain at 6 on a 10 scale.
[2022-04-24 18:54] LABS: Troponin I < 0.01 ng/ml (0.00-0.034)
[2022-04-24 21:17] LABS: Hematocrit 25.6 % (37.0-47.0)
[2022-04-24 21:18] LABS: Hemoglobin 7.3 g/dL (12.2-16.2)
[2022-04-25] VITALS (25 sets, daily range): BP systolic 92–156; BP diastolic 47–76; PULSE 72–90; RESP 14–20; TEMP 36.3–37.2; O2SAT 91–99; BMI 25.4
--- NOTE | 2022-04-25 04:59 | PC.NURSE ---
PATIENT C/O RIGHT BACK PAIN JUST BELOW THE SHOULDER BLADE. RATES PAIN 7/10 DESCRIBED INTERMITTANT AND ACHING. HAS BEEN MEDICATED TWICE THIS SHIFT WITH NORCO 5/325MG 2 TABS PO. RECEIVED 2 UNITS PRBCs ON PREVIOUS SHIFT. H&H IMPROVED7.3 AND 25.6. HAS BEEN NPO SINCE [place].
[2022-04-25 06:42] LABS: Chloride 104 mmol/L (98-107); Sodium 137 mmol/L (136-145)
[2022-04-25 06:45] LABS: Blood Urea Nitrogen 9 mg/dl (7-17); Calcium 7.8 mg/dl (8.4-10.2); Carbon Dioxide 33 mmol/L (22.0-30.0); Creatinine Clearance Estimated 151 mL/min (50-200); Estimated Glomerular Filt Rate 133 ml/min (>60); GFR (African American) 161 ML/MIN (>60); Glucose 117 mg/dl (74-100); Magnesium 1.8 mg/dl (1.6-2.3)
--- NOTE | 2022-04-25 06:47 | EXP.SURG.PN ---
Subjective Patient reports: no new complaints Narrative: Patient still complains of right-sided chest pain. No clinical bleeding. Transfused 2 units packed red blood cells for hemoglobin of 5.1 with posttransfusion hemoglobin of 7.3 as an appropriate response. Stool Hemoccult negative Exam Data for Last 24 hours Vital signs and Labs for Last 24 Hours: Temp Pulse Resp BP Pulse Ox 98.1 F 90 17 130/72 96 04/25/22 04:00 04/25/22 04:00 04/25/22 04:00 04/25/22 04:00 04/25/22 04:00 Laboratory Results - last 24 hr 04/24/22 11:10: SARS-CoV-2 (PCR) Not detected, Influenza A Untype (PCR) Not detected, Influenza Type B (PCR) Not detected 04/24/22 11:15: WBC 14.9 H, RBC 4.56, Hgb 5.1 L*, Hct 20.3 L*, MCV 44.5 L*, MCH 11.1 L*, MCHC 25.0 L, RDW 21.2 H, Plt Count 631 H, MPV 6.8 L, Neut % (Auto) 64.3, Lymph % (Auto) 25.1, [place] % (Auto) 5.5, Eos % (Auto) 3.6, Baso % (Auto) 1.4, Neut # (Auto) 9.6 H, Lymph # (Auto) 3.7, [place] # (Auto) 0.8, Eos # (Auto) 0.5 H, Baso # (Auto) 0.2 04/24/22 11:15: Sodium 136, Potassium 3.6, Chloride 95 L, Carbon Dioxide 32 H, Anion Gap 12.6, BUN 14, Creatinine 0.60, Estimated Creat Clear 129, Estimated GFR 108, Est GFR ( Amer) 131, Glucose 106 H, Calcium 7.8 L, Troponin I < 0.01 04/24/22 11:15: Lactate 2.1 04/24/22 11:15: NT-Pro-B Natriuret Pep 160 H 04/24/22 11:15: D-Dimer 0.99 H 04/24/22 11:15: Total Bilirubin 0.4, Direct Bilirubin 0.3, Conjugated Bilirubin 0.0, Indirect Bilirubin 0.1, Unconjugated Bilirubin 0.1, AST 22, ALT 15, Alkaline Phosphatase 107, Total Protein 6.2 L, Albumin 3.5 04/24/22 11:15: Blood Type Confirm O Positive 04/24/22 11:15: Vitamin B12 604, Procalcitonin 0.119 04/24/22 11:25: Lipase 21 L 04/24/22 12:09: Urine Color Straw, Urine Appearance Clear, Urine pH 6.5, Ur Specific [place] 1.010, Urine Protein Negative, Urine Glucose (UA) Negative, Urine Ketones Negative, Urine Blood Negative, Urine Nitrate Negative, Urine Bilirubin Negative, Urine Urobilinogen 0.2, Ur Leukocyte Esterase Trace, Ur Squamous Epith Cells 3-5, Urine Bacteria Trace, Urine Yeast Occasional 04/24/22 12:15: Stool Occult Blood Negative 04/24/22 12:20: Blood Type O Positive, Antibody Screen Negative, Crossmatch (AHG) See Detail 04/24/22 12:20: Iron 12 L, TIBC 401, Iron Saturation 2.60914 L, Ferritin 4.76 L 04/24/22 14:10: Troponin I < 0.01 04/24/22 17:45: Troponin I < 0.01 04/24/22 17:45: Lactate 1.3 04/24/22 20:50: Hgb 7.3 L D, Hct 25.6 L 04/25/22 06:20: Sodium 137, Potassium 4.0, Chloride 104, Carbon Dioxide 33 H, Anion Gap 4.0 L, BUN 9 D, Creatinine 0.50 L, Estimated Creat Clear 151, Estimated GFR 133, Est GFR ( Amer) 161 D, Glucose 117 H, Calcium 7.8 L, Magnesium 1.8 I & O for Last 24 hours: Intake & Output 04/22/22 04/23/22 04/24/22 04/25/22 11:59 11:59 11:59 11:59 Intake Total 1700 / 1700 Output Total 0 / 0 Balance 1700 / 1700 Weight 152 lb 148 lb 14.4 oz Constitutional Comments: Quite anxious appearing *Routine Abdominal Exam Abdominal: Present soft Progress Note: A&P Assessment and plan (1) CAP (community acquired pneumonia): Status: Acute (2) Generalized abdominal pain: Status: Acute (3) Microcytic anemia: Status: Acute Assessment and plan: Doubt patient has acute GI blood loss. Microcytic iron deficiency anemia likely chronic. Tentatively plan to proceed however with upper endoscopy later today. May ultimately need outpatient hematology and consideration of panendoscopy and possible small bowel evaluation. (4) Essential hypertension: Status: Acute (5) Anxiety: Status: Acute (6) Tobacco dependence: Status: Acute
[2022-04-25 07:23] LABS: INR 1.01 (0.9-1.1); Prothrombin Time 10.9 seconds (10.1-12.5)
[2022-04-25 07:43] LABS: Basophils # 0.1 K/mm3 (0-0.2); Basophils % 0.6 % (0.1-2.0); Eosinophils # 0.3 K/mm3 (0.0-0.4); Eosinophils % 2.4 % (0.1-12.0); Hematocrit 21.9 % (37.0-47.0); Lymphocytes # 2.3 K/mm3 (0.7-4.5); Lymphocytes % 20.7 % (10-50); Mean Corpuscular HGB Conc 29.2 g/dL (31.8-35.4); Mean Corpuscular Volume 50.7 fl (81-99); Monocytes # 0.8 K/mm3 (0.1-1.0); Monocytes % 7.4 % (1.7-9.3); Neutrophils # 7.8 K/mm3 (1.8-7.8); Neutrophils % 68.9 % (37.0-80.0); Platelet Count 458 K/mm3 (142-424); Red Blood Count 4.32 M/mm3 (4.20-5.40); White Blood Count 11.3 K/mm3 (4.8-10.8)
[2022-04-25 08:26] LABS: Mean Corpuscular Hemoglobin 14.8 pg (27.0-31.2); Red Cell Distribution Width 34.6 % (11.5-17.5)
[2022-04-25 08:27] LABS: Hemoglobin 6.4 g/dL (12.2-16.2)
--- NOTE | 2022-04-25 10:32 | EXP.PN ---
Subjective *Date: 04/25/22 *Time: 16:20 Interval history: Date of service 04/25/2022 The patient reports no acute events overnight. She tolerated her blood transfusion with no adverse events. She was maintained on IV fluids through the night. I am accompanied by her nurse Adelaide Rios to discuss her concerns concerning her Klonopin and chronic opioid therapy. Pharmacy will review her records and make recommendations concerning her Suboxone therapy. We have recommended holding the a.m. Klonopin dose with her anticipated EGD this afternoon. We have reviewed and discussed her morning laboratory results. I have personally interpreted her labs as follows: Her morning CBC identifies an improved leukocytoses down to 11.3 and a hemoglobin of 6.4 after 2 units of blood and fluid resuscitation. Her hematocrit is 22 and platelet count is 458. Her iron studies identify deficiency. Her electrolytes identify normal sodium and potassium. Her BUN is 9 and her creatinine 0.5. Her glucose trend is under 125. Her lipase is normal. General surgery has evaluated the patient and plans on upper endoscopy today. She is NPO. Exam Data for Last 24 hours Vital signs and Labs for Last 24 Hours: Temp Pulse Resp BP Pulse Ox 98.6 F 83 14 111/68 95 04/25/22 08:00 04/25/22 08:00 04/25/22 08:00 04/25/22 08:00 04/25/22 08:00 Laboratory Results - last 24 hr 04/24/22 11:10: SARS-CoV-2 (PCR) Not detected, Influenza A Untype (PCR) Not detected, Influenza Type B (PCR) Not detected 04/24/22 11:15: WBC 14.9 H, RBC 4.56, Hgb 5.1 L*, Hct 20.3 L*, MCV 44.5 L*, MCH 11.1 L*, MCHC 25.0 L, RDW 21.2 H, Plt Count 631 H, MPV 6.8 L, Neut % (Auto) 64.3, Lymph % (Auto) 25.1, [place] % (Auto) 5.5, Eos % (Auto) 3.6, Baso % (Auto) 1.4, Neut # (Auto) 9.6 H, Lymph # (Auto) 3.7, [place] # (Auto) 0.8, Eos # (Auto) 0.5 H, Baso # (Auto) 0.2 04/24/22 11:15: Sodium 136, Potassium 3.6, Chloride 95 L, Carbon Dioxide 32 H, Anion Gap 12.6, BUN 14, Creatinine 0.60, Estimated Creat Clear 129, Estimated GFR 108, Est GFR ( Amer) 131, Glucose 106 H, Calcium 7.8 L, Troponin I < 0.01 04/24/22 11:15: Lactate 2.1 04/24/22 11:15: NT-Pro-B Natriuret Pep 160 H 04/24/22 11:15: D-Dimer 0.99 H 04/24/22 11:15: Total Bilirubin 0.4, Direct Bilirubin 0.3, Conjugated Bilirubin 0.0, Indirect Bilirubin 0.1, Unconjugated Bilirubin 0.1, AST 22, ALT 15, Alkaline Phosphatase 107, Total Protein 6.2 L, Albumin 3.5 04/24/22 11:15: Blood Type Confirm O Positive 04/24/22 11:15: Vitamin B12 604, Procalcitonin 0.119 04/24/22 11:25: Lipase 21 L 04/24/22 12:09: Urine Color Straw, Urine Appearance Clear, Urine pH 6.5, Ur Specific [place] 1.010, Urine Protein Negative, Urine Glucose (UA) Negative, Urine Ketones Negative, Urine Blood Negative, Urine Nitrate Negative, Urine Bilirubin Negative, Urine Urobilinogen 0.2, Ur Leukocyte Esterase Trace, Ur Squamous Epith Cells 3-5, Urine Bacteria Trace, Urine Yeast Occasional 04/24/22 12:15: Stool Occult Blood Negative 04/24/22 12:20: Blood Type O Positive, Antibody Screen Negative, Crossmatch (AHG) See Detail 04/24/22 12:20: Iron 12 L, TIBC 401, Iron Saturation 2.85074 L, Ferritin 4.76 L 04/24/22 14:10: Troponin I < 0.01 04/24/22 17:45: Troponin I < 0.01 04/24/22 17:45: Lactate 1.3 04/24/22 20:50: Hgb 7.3 L D, Hct 25.6 L 04/25/22 06:20: WBC 11.3 H, RBC 4.32, Hgb 6.4 L*, Hct 21.9 L, MCV 50.7 L, MCH 14.8 L* D, MCHC 29.2 L, RDW 34.6 H* D, Plt Count 458 H D, MPV 7.0 L, Neut % (Auto) 68.9, Lymph % (Auto) 20.7, [place] % (Auto) 7.4, Eos % (Auto) 2.4, Baso % (Auto) 0.6, Neut # (Auto) 7.8, Lymph # (Auto) 2.3, [place] # (Auto) 0.8, Eos # (Auto) 0.3, Baso # (Auto) 0.1 04/25/22 06:20: Sodium 137, Potassium 4.0, Chloride 104, Carbon Dioxide 33 H, Anion Gap 4.0 L, BUN 9 D, Creatinine 0.50 L, Estimated Creat Clear 151, Estimated GFR 133, Est GFR ( Amer) 161 D, Glucose 117 H, Calcium 7.8 L, Magnesium 1.8 04/25/22 06:45: PT 10.9, INR 1.01 I & O for Last 24 hours: Intake & Output 04/22/22 04/23/22
--- NOTE | 2022-04-25 14:14 | P.PN_ITS ---
[facility] Disclaimer: The information contained in this section may have been updated after the patient was seen, as this information can be updated by other users. Medical History (Updated 04/24/22 @ 15:07 by Charlie Christianson MD) Anxiety Chronic, continuous use of opioids Chronically on benzodiazepine therapy Essential hypertension Iron deficiency anemia Tobacco dependence Surgical History (Updated 04/24/22 @ 15:00 by Charlie Christianson MD) History of appendectomy History of oophorectomy LAP-BAND surgery status Family History (Updated 04/24/22 @ 15:00 by Charlie Christianson MD) Mother Hypertension Father Alcoholism Social History Smoking Status: Current every day smoker alcohol intake: never substance use type: denies use current occupational status: other Travel in the last 8 weeks: None household members: family housing: house [facility] Anesthesia Checklist Patient Identification Patient Identification: Arm Band Structural Data Admitted From: Inpatient Planned Operative Procedure/s: EGD Consent for Planned Operative Procedure(s) Verified: Yes Verified Documents: Surgical Consent and History and Physical NPO Status Verified Time NPO: 00:00 Additional verifications Anesthesia Reactions: No Airway Assessment C-Spine Mobility Assessed: Yes TMJ Mobility Assessed: Yes Dentition: Dentures-good fit (removed) Neurological Assessment Level of Consciousness: Awake and Alert Anesthesia Plan Anesthesia Risk discussed: Yes Anesthesia Plan: Verified ASA Class: II Anesthesia Type: MAC
[2022-04-25 14:29] LABS: Urine Pregnancy, HCG Qual. Negative (Negative)
--- NOTE | 2022-04-25 14:53 | P.PCN_ITS ---
Procedure: Date: 04/25/22 Patient Date of :: 1975 Procedure Performed:: Esophagogastroscopy Indications:: Patient is a 46-year-old female. She has previously undergone laparoscopic gastric band many years ago. She presented to [facility] emergency department on 04/24/2022 with concerns of chest pain for several days as well as fevers. She was diagnosed with pneumonia and treated with Z-Hector and steroid pack as an outpatient. Her symptoms persisted. She had been taking ibuprofen 600 mg every 6 hours for the right-sided chest pain. When she presented to the emergency department evaluation revealed a hemoglobin of 5.1. A surgical consultation was obtained. Plan was made for EGD. She was transfused a couple of units of packed red blood cells for hemoglobin of 5.1 with posttransfusion hemoglobin of 7.3. Blood work this morning however reveals a hemoglobin of 6.4. She denies any symptoms of melena or hematochezia. Hemoccult stool was negative. Performing Provider:: Miguel Da Silva MD Referring Provider:: Charlie Christianson Sedation:: MAC sedation Procedure:: Patient was taken to endoscopy procedure room. She was positioned in lateral decubitus position. Adequate intravenous sedation was achieved. Olympus endoscope was inserted via the oropharynx and the esophagus was cannulated. Proximal esophagus appeared relatively unremarkable other than findings of possible mild esophageal dysmotility. In the distal esophagus there was evidence of reflux of particulate liquid gastric contents consistent with old food. This was suctioned free. Gastroesophageal junction was encountered at approximately 38 cm. There were findings of some mild distal erosive esophagitis. No evidence of any active bleeding. Proximal stomach was cannulated. There is a large amount of old food matter and liquid which could not be cleared despite irrigation and suctioning. No evidence of any active bleeding. Due to lack of visualization the endoscope was unable to be advanced beyond the lap band into the distal stomach or duodenum. Proximal gastric pouch was desufflated and the endoscope was withdrawn. Findings:: Gastroesophageal junction at 38 cm Some distal erosive esophagitis, mild to moderate Reflux of gastric contents including food and liquid into the distal esophagus and large amount of retained particulate food matter within the proximal gastric pouch Recommendations:: Very limited esophagogastroscopy was able to be performed despite the patient being n.p.o. for at least 15 hours and just on clear liquids for 24 hours. This may be secondary to her lap band procedure. Recommend continue to monitor hemoglobin for stability. May ultimately require panendoscopy for evaluation of anemia. However, it is reassuring that this seems to be a longstanding issue and not necessarily an acute problem which is reinforced with her lack of clinical bleeding including melena and hematochezia as well as her stool for Hemoccult negativity. She could require deflation of her lap gastric band to allow for emptying and better evaluation for upper GI pathology at some point. Complications:: None immediately apparent Estimated blood obtained (mL): 1
[2022-04-25 16:05] LABS: Hematocrit 28.6 % (37.0-47.0)
[2022-04-25 16:44] LABS: Hemoglobin 8.3 g/dL (12.2-16.2)
--- NOTE | 2022-04-25 16:52 | EXP.DC.SUM ---
General Admission date:: 04/24/22 Discharge date: 04/25/22 HPI HPI HPI: This is a 46-year-old female that presents to [facility] emergency department with concerns of epigastric and chest pain for several days not resolving with recent medical provider prescribed therapy. She reports that she was diagnosed with pneumonia and treated with a Z-Hector and steroid pack and not feeling better. She has been taking ibuprofen 600 mg orally every 6 hours for the past week. She is now experiencing weakness, lightheadedness with ongoing cough with shortness of air. Her shortness of air increases with exertion. She reports a week ago that she had diarrhea but it resolved after taking the Z-Hector. She continues to experience nausea and vomiting. She reports associated fever and subjective chills. She has identified no associated hematemesis, melena or hematochezia. She also describes generalized abdominal pain that radiates to all 4 quadrants. She has had her appendix removed. She reports no menstrual cycle in 2 years. She reports a past history of constipation. Her past medical history significant for hypertension, opioid dependence, generalized anxiety disorder and chronic benzodiazepine therapy. In the ED her CBC identifies a leukocytosis with a hemoglobin of 5.1, hematocrit 20.3 and platelet count 631. Her MCV is 44. Her electrolytes and creatinine are normal. Her lactic acid is 2.1. Her LFTs are normal. Her stool guaiac is negative. Her chest x-ray identifies concerns with pneumonia and her ECG identifies sinus tachycardia with a rate of 103 and QTc 369 ms. she is receiving 2 units of packed red blood cells. Hospital Course Hospital Course Hospital Course: The patient was admitted to the medical unit with telemetry and pulse oximetry monitoring. Chest imaging which included chest x-ray and CTA of the chest identified concerns for aspiration and she was started on IV Levaquin therapy after blood cultures were acquired. Her blood cultures identify no growth to date and her CBC identified and improved leukocytoses on discharge. Her hemoglobin was trended and she was provided with 3 units of packed red blood cells to achieve a stable hemoglobin. On discharge her hemoglobin is 8.3. On 04/25/2022 she underwent EGD which was limited by her lap band and identified no active bleeding but did identify esophagitis and retained food in the stomach. We have recommended that she pursue IV iron therapy as outpatient with her PCP and continue follow-up with general surgery as scheduled. She will continue a course of antibiotic for aspiration pneumonia. I have recommended ongoing PPI therapy as prescribed by her PCP for esophagitis identified on EGD and imaging. She will continue with [id number] MiraLAX for constipation management. We have recommended complete tobacco cessation. I spent 35 minutes in [id number] time with the patient and nursing staff (Adelaide Rios RN) concerning the discharge process. We discussed the admitting diagnoses and hospital course. We discussed identified improvement and the patient's desire to be discharged. We reviewed inpatient studies and imaging. The patient voiced understanding on the importance of follow-up with her primary care provider and specialist(s). The patient plans to be compliant with the medication regimen prescribed and follow-up appointments. She understands the importance of tobacco cessation. She understands that she can return to the emergency department with any sudden changes or concerns. Exam Data for Last 24 hours Vital signs and Labs for Last 24 Hours: Temp Pulse Resp BP Pulse Ox 98.2 F 81 20 133/66 97 04/25/22 15:20 04/25/22 16:20 04/25/22 16:20 04/25/22 16:20 04/25/22 16:20 Laboratory Results - last 24 hr 04/24/22 12:20: Blood Type O Positive, Antibody Screen Negative, Crossmatch (AHG) See Detail 04/24/22 17:45: Troponin I < 0.01 04/24/22 17:45: Lactate 1.3 02
--- NOTE | 2022-04-25 17:13 | PC.NURSE ---
PT IS FEELING WELL. VERY EXCITED ABOUT GETTING DISCHARGED. POST OP VSS. PT STATED SHE WOULD CALL FOR FOLLOW UP APPOINTMENTS ON THURSDAY WITH AND .
[2022-04-26 08:38] LABS: Transferrin 293 mg/dL (192-364)
--- NOTE | 2022-04-29 13:48 | CARE MANAGER ---
Addendum entered by Torri Sutton RN 04/30/22 11:36: Patient returned our call to discuss recent discharge. She stated that she is doing well. No complaints or concerns at time of call. Original Note: Attempted to contact patient x2 related to hospital discharge. Left VM. MARION Roberson
== END 2022-04-25 17:39 | disposition home or self-care (01) | DRG 194 ==
LOC: ER 12:46 → 2ND 14:38
PROVIDERS: Surgery; Admitting Provider Family Medicine; Emergency Provider Emergency Medicine; PCP Family Medicine; Visit Provider Family Medicine
PROC: 0DJ08ZZ Inspection of Upper Intestinal Tract, Via Natural or Artificial Opening Endoscopic (ICD-10-PCS; CPT 43235; principal; 2022-04-25 13:30)
DX: J18.9 Pneumonia, unspecified organism (principal); F11.20 Opioid dependence, uncomplicated; D50.9 Iron deficiency anemia, unspecified; I10 Essential (primary) hypertension; Z79.899 Other long term (current) drug therapy; K22.89 Other specified disease of esophagus; F17.200 Nicotine dependence, unspecified, uncomplicated; K59.09 Other constipation; F41.1 Generalized anxiety disorder; Z71.6 Tobacco abuse counseling; K20.80 Other esophagitis without bleeding
CPT/HCPCS: 43235; 36415; 36430; 71045; 71275; 74177; 80048; 80076; 81001; 81025; 82272; 82607; 82728; 83540; 83550; 83605; 83690; 83735; 83880; 84145; 84466; 84484; 85014; 85018; 85025; 85378; 85610; 86850; 87040; 93005; 94640; 94760; 99285; C9803; G0328; J1956; J2405; P9016; Q9967; U0003; U0005

== ENCOUNTER → 2022-05-12 15:04 | Outpatient (CLI) | payer MEDICARE, MEDICAID, SELFPAY ==
[2022-05-12 16:55] LABS: Basophils # 0.1 K/mm3 (0-0.2); Basophils % 0.9 % (0.1-2.0); Eosinophils # 0.5 K/mm3 (0.0-0.4); Eosinophils % 8.3 % (0.1-12.0); Hematocrit 28.3 % (37.0-47.0); Hemoglobin 8.4 g/dL (12.2-16.2); Lymphocytes # 1.8 K/mm3 (0.7-4.5); Lymphocytes % 32.5 % (10-50); Mean Corpuscular HGB Conc 29.5 g/dL (31.8-35.4); Mean Corpuscular Hemoglobin 16.9 pg (27.0-31.2); Mean Corpuscular Volume 57.1 fl (81-99); Mean Platelet Volume 7.2 fl (7.4-10.4); Monocytes # 0.5 K/mm3 (0.1-1.0); Monocytes % 8.6 % (1.7-9.3); Neutrophils # 2.8 K/mm3 (1.8-7.8); Neutrophils % 49.7 % (37.0-80.0); Platelet Count 436 K/mm3 (142-424); Red Blood Count 4.95 M/mm3 (4.20-5.40); White Blood Count 5.6 K/mm3 (4.8-10.8)
[2022-05-12 17:31] LABS: Iron 16 ug/dL (37-170)
[2022-05-12 17:40] LABS: Total Iron Binding Capacity 402 ug/dL (265-497)
[2022-05-12 18:07] LABS: Ferritin 5.06 ng/ml (6.24-137)
== END ==
PROVIDERS: PCP Family Medicine; Visit Provider Family Medicine
DX: D50.9 Iron deficiency anemia, unspecified (principal); K22.89 Other specified disease of esophagus; J18.9 Pneumonia, unspecified organism
CPT/HCPCS: 36415; 82728; 83540; 83550; 85025

== ENCOUNTER 2022-06-05 10:49 | Day surgery (SDC) | payer MEDICARE, MEDICAID, SELFPAY ==
[2022-06-02 08:50] VITALS: BMI 23.6
[2022-06-05 11:22] VITALS: BP 119/66; PULSE 72; RESP 18; TEMP 36.9; O2SAT 100
--- NOTE | 2022-06-05 12:23 | P.PN_ITS ---
[facility] Disclaimer: The information contained in this section may have been updated after the patient was seen, as this information can be updated by other users. Medical History Anxiety Chronic, continuous use of opioids Chronically on benzodiazepine therapy Essential hypertension Iron deficiency anemia Tobacco dependence Surgical History History of appendectomy History of section History of oophorectomy LAP-BAND surgery status Family History Mother Hypertension Father Alcoholism Other Family history of diabetes mellitus type II Social History Smoking Status: Current every day smoker years smoked: 10 alcohol intake: never substance use type: opiates counseling given: No (clean 10 yr) current occupational status: other Travel in the last 8 weeks: None household members: family housing: house marital status: single education level: high school caffeine: Yes special shayy needs: No agree to transfusion: No do you feel safe at home: Yes victim of physical abuse: No victim of emotional abuse: No victim of sexual abuse: No would you like helpful sources: No [facility] Anesthesia Checklist Patient Identification Patient Identification: Arm Band Structural Data Admitted From: Home Planned Operative Procedure/s: Colonoscopy Consent for Planned Operative Procedure(s) Verified: Yes Verified Documents: Surgical Consent and History and Physical NPO Status Verified Time NPO: 00:00 Additional verifications Anesthesia Reactions: No Airway Assessment C-Spine Mobility Assessed: Yes TMJ Mobility Assessed: Yes Dentition: Poor Dentition Neurological Assessment Level of Consciousness: Awake and Alert Anesthesia Plan Anesthesia Risk discussed: Yes Anesthesia Plan: Verified ASA Class: II Anesthesia Type: MAC
[2022-06-05 12:47] LABS: Urine Pregnancy, HCG Qual. Negative (Negative)
[2022-06-05 13:19] VITALS: O2SAT 100
--- NOTE | 2022-06-05 13:37 | HMH.SCOPE ---
Procedure: Date: 06/05/22 Patient Date of :: 1975 Procedure Performed:: Diagnostic colonoscopy Indications:: Anemia Performing Provider:: Marlys Mckeon MD Referring Provider:: Severino Campos Sedation:: Propofol Procedure:: After placing the patient in the left lateral decubitus position, the colonoscopy was gently inserted into the rectum and under direct visualization advanced to the cecum which was identified by transillumination in the right lower quadrant, identification of the ileocecal valve, appendiceal orifice, and cecal strap. Color, texture, mucosa, and anatomy of the colon were carefully examined with the scope. Findings:: Anal canal: normal Rectum: normal Sigmoid colon: normal without polyps or inflammatory changes Descending colon: normal without polyps or inflammatory changes Splenic flexure: normal Transverse colon: normal without polyps or inflammatory changes Hepatic flexure: normal Ascending colon: normal without polyps or inflammatory changes Cecum: normal, residual liquid stool noted Terminal ileum: not visualized Impression: Normal colonoscopy Recommendations:: Follow up examination in about TEN years or so, sooner if clinically indicated. Complications:: None Estimated blood obtained (mL): 0
[2022-06-05 13:42] VITALS: BP 87/39; PULSE 76; RESP 16; TEMP 36.3; O2SAT 100
[2022-06-05 13:52] VITALS: BP 85/47; PULSE 73; RESP 16; O2SAT 100
[2022-06-05 14:02] VITALS: BP 103/45; PULSE 76; RESP 17; O2SAT 100
[2022-06-05 14:12] VITALS: BP 118/63; PULSE 73; RESP 17; O2SAT 95
== END 2022-06-05 14:15 | disposition home or self-care (01) ==
PROVIDERS: PCP Family Medicine; Visit Provider Internal Medicine Gastroenterology
PROC: 0DJD8ZZ Inspection of Lower Intestinal Tract, Via Natural or Artificial Opening Endoscopic (ICD-10-PCS; CPT 45378; principal; 2022-06-05 11:00)
DX: D64.9 Anemia, unspecified (principal); F17.210 Nicotine dependence, cigarettes, uncomplicated; Z79.899 Other long term (current) drug therapy
CPT/HCPCS: 45378; 81025

== ENCOUNTER → 2022-10-01 23:45 | Outpatient (CLI) | payer MEDICARE, MEDICAID, SELFPAY ==
[2022-10-01 18:37] LABS: Alanine Aminotransferase 12 U/L (12-78); Albumin Level 4.4 g/dl (3.5-5.0); Albumin/Globulin Ratio 1.6 (1.1-1.8); Alkaline Phosphatase 117 U/L (38-126); Anion Gap 12.1 mEq/L (5-15); Aspartate Amino Transferase 37 U/L (14-36); Bilirubin,Total 0.4 mg/dl (0.2-1.3); Blood Urea Nitrogen 16 mg/dl (7-17); Carbon Dioxide 28 mmol/L (22.0-30.0); Chloride 104 mmol/L (98-107); Estimated Glomerular Filt Rate 133 ml/min (>60); GFR (African American) 161 ML/MIN (>60); Globulin 2.7 g/dL (1.3-3.2); Glucose 78 mg/dl (74-100); Potassium 4.1 mmoL/L (3.5-5.1); Sodium 140 mmol/L (136-145); Total Protein,Serum 7.1 g/dl (6.3-8.2)
[2022-10-01 20:27] LABS: Basophils # 0.1 K/mm3 (0-0.2); Basophils % 0.9 % (0.1-2.0); Eosinophils # 0.5 K/mm3 (0.0-0.4); Eosinophils % 8.8 % (0.1-12.0); Hematocrit 27.9 % (37.0-47.0); Hemoglobin 7.1 g/dL (12.2-16.2); Lymphocytes # 2.2 K/mm3 (0.7-4.5); Lymphocytes % 36.2 % (10-50); Mean Corpuscular HGB Conc 25.5 g/dL (31.8-35.4); Mean Corpuscular Volume 52.9 fl (81-99); Mean Platelet Volume 7.8 fl (7.4-10.4); Monocytes # 0.5 K/mm3 (0.1-1.0); Monocytes % 8.8 % (1.7-9.3); Neutrophils # 2.8 K/mm3 (1.8-7.8); Neutrophils % 45.3 % (37.0-80.0); Platelet Count 478 K/mm3 (142-424); Red Blood Count 5.26 M/mm3 (4.20-5.40); Red Cell Distribution Width 19.9 % (11.5-17.5); White Blood Count 6.2 K/mm3 (4.8-10.8)
[2022-10-01 20:33] LABS: Mean Corpuscular Hemoglobin 13.5 pg (27.0-31.2)
[2022-10-01 21:32] LABS: Hemoglobin A1C 5.2 % (4.0-6.0)
[2022-10-01 21:38] LABS: Iron 26 ug/dL (37-170)
[2022-10-01 21:53] LABS: Total Iron Binding Capacity 488 ug/dL (265-497)
== END ==
PROVIDERS: PCP Family Medicine; Visit Provider Family Medicine
DX: E11.9 Type 2 diabetes mellitus without complications (principal); J34.89 Other specified disorders of nose and nasal sinuses; D50.9 Iron deficiency anemia, unspecified
CPT/HCPCS: 80053; 83036; 83540; 83550; 85025

== ENCOUNTER 2022-10-08 11:02 | Outpatient (CLI) | payer MEDICARE, MEDICAID, SELFPAY ==
[2022-10-08 12:16] VITALS: BP 154/85; PULSE 94; RESP 18; O2SAT 99
[2022-10-08 12:38] VITALS: BP 143/88; PULSE 90; RESP 18; O2SAT 98
== END 2022-10-08 12:16 | disposition home or self-care (01) ==
LOC: INF 11:03
PROVIDERS: PCP Family Medicine; Visit Provider Family Medicine
DX: D50.9 Iron deficiency anemia, unspecified (principal)
CPT/HCPCS: 96365; J1756

== ENCOUNTER 2022-10-15 11:04 | Outpatient (CLI) | payer MEDICARE, MEDICAID, SELFPAY ==
[2022-10-15 11:50] VITALS: BP 126/70; PULSE 61; RESP 18; TEMP 37; O2SAT 98
[2022-10-15 12:40] VITALS: BP 146/61; PULSE 71; RESP 18; O2SAT 98
== END 2022-10-15 12:48 | disposition home or self-care (01) ==
LOC: INF 11:04
PROVIDERS: PCP Family Medicine; Visit Provider Family Medicine
DX: D50.9 Iron deficiency anemia, unspecified (principal)
CPT/HCPCS: 96365; J1756

== ENCOUNTER 2022-10-22 14:52 | Outpatient (CLI) | payer MEDICARE, MEDICAID, SELFPAY ==
[2022-10-22 15:08] VITALS: BP 153/89; PULSE 93; RESP 18; TEMP 36.8; O2SAT 100
[2022-10-22 15:50] VITALS: BP 148/82; PULSE 90; RESP 18; O2SAT 99
== END 2022-10-22 15:50 | disposition home or self-care (01) ==
LOC: INF 14:53
PROVIDERS: PCP Family Medicine; Visit Provider Family Medicine
DX: D50.9 Iron deficiency anemia, unspecified (principal)
CPT/HCPCS: 96365; J1756

== ENCOUNTER 2022-10-30 11:06 | Outpatient (CLI) | payer MEDICARE, MEDICAID, SELFPAY ==
[2022-10-30 11:49] VITALS: BP 148/86; PULSE 76; RESP 18; TEMP 36.8; O2SAT 99
[2022-10-30 12:35] VITALS: BP 148/90; PULSE 75; RESP 16; TEMP 36.8; O2SAT 99
== END 2022-10-30 12:40 | disposition home or self-care (01) ==
LOC: INF 11:06
PROVIDERS: PCP Family Medicine; Visit Provider Family Medicine
DX: D50.8 Other iron deficiency anemias (principal)
CPT/HCPCS: 96365; J1756

== ENCOUNTER 2022-11-05 10:47 | Outpatient (CLI) | payer MEDICARE, MEDICAID, SELFPAY ==
[2022-11-05 11:47] VITALS: BP 162/109; PULSE 73; RESP 18; O2SAT 99
[2022-11-05 12:27] VITALS: BP 151/83; PULSE 73; RESP 18
== END 2022-11-05 12:27 | disposition home or self-care (01) ==
LOC: INF 10:48
PROVIDERS: PCP Family Medicine; Visit Provider Family Medicine
DX: D50.9 Iron deficiency anemia, unspecified (principal)
CPT/HCPCS: 96365; J1756

== ENCOUNTER → 2022-11-26 15:25 | Outpatient (CLI) | payer MEDICARE, MEDICAID, SELFPAY ==
--- NOTE | 2022-11-26 15:25 | MM_ITS ---
PROCEDURE INFORMATION: Exam: Bilateral Screening 3D Mammography Exam date and time: 11/26/2022 3:33 PM Age: 47 years old Clinical indication: Baseline. Her maternal grandmother had breast cancer. TECHNIQUE: Imaging protocol: Bilateral Screening tomosynthesis and 2D mammography including computer-aided detection (CAD) when performed. COMPARISON: No relevant prior studies available.If prior mammograms are provided, I am happy to add an addendum. FINDINGS: MAMMOGRAPHY: Breast composition: There are scattered areas of fibroglandular density. Mass: None. Architectural distortion: None. Calcifications: No suspicious calcifications. Asymmetric density: None. Skin thickening: None. Axillary adenopathy: None. IMPRESSION: No mammographic evidence of malignancy. Annual screening is recommended unless otherwise clinically indicated. ASSESSMENT: BI-RADS Category 1: Negative
== END ==
PROVIDERS: PCP Family Medicine; Visit Provider Obstetrics & Gynecology
DX: Z12.31 Encounter for screening mammogram for malignant neoplasm of breast (principal)
CPT/HCPCS: 77063; 77067

== ENCOUNTER 2023-02-12 13:44 | Emergency (ER) | payer MEDICARE, MEDICAID, SELFPAY ==
[2023-02-12 14:00] VITALS: BP 176/94; PULSE 82; RESP 18; TEMP 37.1; O2SAT 98; BMI 32.2
[2023-02-12 14:17] LABS: UTC Strep Screen (Rapid) Positive (Negative)
--- NOTE | 2023-02-12 14:26 | EXP.UTC ---
Discharge Plan Disposition Patient Disposition: Home, Self-Care Condition: Good Prescriptions Prescriptions: New amoxicillin [amoxicillin] 875 mg tablet 875 mg PO Q12H Qty: 20 0RF benzonatate [benzonatate] 100 mg capsule 100 mg PO TIDP PRN (Reason: Cough) Qty: 30 0RF methylprednisolone 4 mg Tablets,Dose Pack 4 mg PO DIRECTED Qty: 21 0RF No Action tizanidine 4 mg tablet 4 mg PO DAILY naloxone 4 mg/actuation spray,non-aerosol intranasal furosemide 20 mg tablet 20 mg PO DAILY sertraline 50 mg tablet 50 mg PO DAILY buprenorphine-naloxone 8-2 mg film 2 film sublingual DAILY amlodipine-benazepril [Lotrel] 10-20 mg capsule 1 cap PO DAILY Qty: 90 3RF clonazepam [Klonopin] 1 mg tablet 1 mg PO BIDP PRN (Reason: anxiety) Qty: 20 1RF Rx Instructions: use sparingly cefdinir 300 mg capsule 300 mg PO BID 10 Days Qty: 20 0RF pantoprazole 40 mg tablet,delayed release (DR/EC) See Rx Instructions .ROUTE .COMPLEX Qty: 90 3RF Dose Instruction: TAKE 1 TABLET EVERY DAY Rx Instructions: TAKE 1 TABLET EVERY DAY ferrous sulfate 325 mg (65 mg iron) tablet 325 mg PO BID hydrochlorothiazide 12.5 mg capsule 12.5 mg PO DAILY Referrals Follow up/Referrals: Severino Camops MD [Primary Care Provider] - See instructions Activity Restrictions/Add. Instructions Additional Instructions/Restrictions: Drink plenty of fluids. Take tylenol or ibuprofen for pain or fever. Stop the cefdinir that you are currently taking and start the amoxicillin. Take the medications as directed. Follow up with your regular doctor. GO TO THE ER FOR ANY WORSENING SYMPTOMS Clinical Impressions Clinical Impression: Strep throat Instructions Patient Instructions: Strep Throat, DI for Strep Throat Discharge ED Provider: Trav [facility] HPI General Stated complaint: fever, congestion, phlem Mode of Arrival: Ambulatory Source of Information: Patient Limitations: No Limitations Time Seen by Provider: 02/12/23 14:26 Description of Symptoms (Recalled from Triage Doc. by RN): fever, congestion, drainage, and fatigue HEENT Symptoms (Recalled from RN notes): Yes Resp Symptoms (Recalled from RN notes): No Skin Symptoms (Recalled from RN notes): No MS Symptoms (Recalled from RN notes): No Functional Status (Recalled from RN notes): n/a History of Present Illness Provider Complaint: She states that she has had a worsening sore throat and sinus congestion for the past 1 week. She was prescribed cefdinir by her pcp 4 days ago but she is getting worse instead of better. She denies significant chest congestion and shortness of breath. Related Data Home Medications Medication Instructions Recorded Confirmed ferrous sulfate 325 mg (65 mg 325 mg PO BID Supplement 06/05/22 02/12/23 iron) tablet buprenorphine 8 mg-naloxone 2 mg 2 film sublingual DAILY 11/19/22 02/12/23 sublingual film furosemide 20 mg tablet 20 mg PO DAILY 11/19/22 02/12/23 naloxone 4 mg/actuation nasal spray intranasal 11/19/22 11/19/22 sertraline 50 mg tablet 50 mg PO DAILY 11/19/22 02/12/23 tizanidine 4 mg tablet 4 mg PO DAILY 11/19/22 02/12/23 hydrochlorothiazide 12.5 mg capsule 12.5 mg PO DAILY 02/12/23 02/12/23 Previous Rx's Medication Instructions Recorded amlodipine 10 mg-benazepril 20 mg 1 cap PO DAILY blood pressure #90 11/05/22 capsule (Lotrel) caps clonazepam 1 mg tablet (Klonopin) 1 mg PO BIDP PRN anxiety #20 tabs 01/28/23 cefdinir 300 mg capsule 300 mg PO BID 10 days #20 caps 02/06/23 pantoprazole 40 mg tablet,delayed See Rx Instructions .Route 02/11/23 release .COMPLEX #90 tabs amoxicillin 875 mg tablet 875 mg PO Q12H #20 tabs 02/12/23 benzonatate 100 mg capsule 100 mg PO TIDP PRN Cough #30 caps 02/12/23 methylprednisolone 4 mg tablets in 4 mg PO DIRECTED #21 tabs 02/12/23 a dose pack Allergies Allergy/AdvReac Type Severity Reaction Status José Manuel
[2023-02-12 14:53] VITALS: BP 176/90; PULSE 82; RESP 18; TEMP 37.1; O2SAT 98
== END 2023-02-12 14:53 | disposition home or self-care (01) ==
PROVIDERS: Emergency Provider Nurse Practitioner Family; PCP Family Medicine
DX: J02.0 Streptococcal pharyngitis (principal); R50.9 Fever, unspecified; R09.81 Nasal congestion; R09.82 Postnasal drip; R53.83 Other fatigue; F17.210 Nicotine dependence, cigarettes, uncomplicated; I10 Essential (primary) hypertension; D50.9 Iron deficiency anemia, unspecified
CPT/HCPCS: 87880; 99212; 99214; G0463

== ENCOUNTER 2023-05-08 18:10 | Outpatient (CLI) | payer MEDICARE, MEDICAID, SELFPAY ==
[2023-05-08 19:13] LABS: Barbiturates Screen,Urine Negative ng/ml (<200)
[2023-05-08 19:15] LABS: Cocaine Screen,Urine Negative ng/ml (<300); Methadone Screen,Urine Negative ng/ml (<300)
[2023-05-08 19:16] LABS: Cannabinoid Screen,Urine Negative ng/ml (<50)
[2023-05-08 19:17] LABS: Opiate Screen,Urine Negative ng/ml (<300); Phencyclidine Screen,Urine Negative ng/ml (<25)
[2023-05-08 19:22] LABS: Benzodiazepines Screen,Urine Negative ng/ml (<200)
[2023-05-08 21:27] LABS: Amphetamine/Metha Screen,Urine Positive ng/ml (<1000)
[2023-05-14 08:03] LABS: Amphetamine Positive (.); Amphetamine (GC/MS) >3000 ng/mL (Cutoff=500); Amphetamines Positive (.); Buprenorphine Positive (.); Methamphetamine Positive (.); Methamphetamine (GC/MS) >3000 ng/mL (Cutoff=500); Norbuprenorphine Positive (.)
== END 2023-05-08 23:59 ==
LOC: LAB.DROPOF 18:10
PROVIDERS: PCP Nurse Practitioner Acute Care; Visit Provider Nurse Practitioner Acute Care
DX: Z79.899 Other long term (current) drug therapy (principal)
CPT/HCPCS: 80307; 80324; 80348

== ENCOUNTER 2023-05-28 19:06 | Outpatient (CLI) | payer MEDICARE, MEDICAID, SELFPAY | END 2023-05-28 23:59 | LOC: LAB.DROPOF 19:06 | PROVIDERS: PCP Family Medicine; Visit Provider Family Medicine | DX: Z79.899 Other long term (current) drug therapy (principal); J02.9 Acute pharyngitis, unspecified ==

== ENCOUNTER 2024-11-09 15:00 | Outpatient (CLI) | payer MEDICARE, MEDICAID, SELFPAY ==
--- OUTSIDE RECORDS SUMMARY | 2024-10-21 16:30 | XMS_ITS | Encounter Summary ---
Author Organization [facility] [place] [address] Care Team Providers Care Assistant Professor Of Life Sciences Name Role Phone Garcia Villavicencio MD Unavailable [phone] Garcia Villavicencio MD Unavailable [phone] Garcia Villavicencio MD Unavailable [phone] Josiah Savage MD Unavailable Unavailable James Silveira MD Primary Care Provider [phone] Reason for Referral * Mammography (Routine) - Pending Review Specialty Diagnoses / Procedures Referred By Beronica gu Referred To Contact Radiology Diagnoses Visit for screening mammogram Procedures MM MAMMO DIGITAL CHERYL SCREEN Faiza Michele APRN [address] [place] [address] Phone: tel: fax: Referral ID Status Reason Start Date Expiration Date V isits Requested Visits Authorized [id number] Pending Review 10/23/2024 10/21/2026 1 1 Reason for Visit * Reason Comments Hypertension 212/117 Encounter Details Date Type Department Care Team (Late st Contact Info) Description 10/21/2024 4:30 PM EDT Office Visit [facility] [address] [place] [address] Faiza Ramirez APRN [address] [place] [address] Essential hypertension (Primary Dx); Visit for screening mammogram; Morbid (severe) obesity due to excess calories (HCC); Opioid use disorder, severe, dependence (HCC) Social History Tobacco Use Types Packs/Day Years Used Date Smoking Tobacco: Some Days Cigarettes 0.3 16.8 Started: 2005; Last attempted to quit: 01/2022 Smokeless Tobacco: Never Comments:not every day Alcohol Use Standard Drinks/Week Comments No 0 (1 standard drink = 0.6 oz pur e alcohol) Overall Financial Resource Strain (CARDIA) Answe r Date Recorded How hard is it for you to pa y for the very basics like food, housing, medical care, and heating? Very hard 12/18/2023 PHQ-2 Answer Date Recorded PHQ-2 Total Score 0 10/21/2024 [facility] of Occupat ional Health - Occupational Stress Questionnaire Answer Date Recorded Do you feel stress - tense, restless, nervous, or anxious, or unable to sleep at night because your mind is troubled all the time - these days? Very much 12/18/2023 Hunger Vital Sign Answer Date Recorded Within the past 12 months, y ou worried that your food would run out before you got the money to buy more. Never true 12/18/19 24 Within the past 12 months, t he food you bought just didn't last and you didn't have money to get more. Never true 12/18/2023 PRAPARE - Transportation Answer Date Re corded In the past 12 months, has l ack of transportation kept you from medical appointments or from getting medications? No 12/07 In the past 12 months, has l ack of transportation kept you from meetings, work, or from getting things needed for daily living? No 12/18/2023 Housing Stability Vital Sign Answer José Manuel e Recorded In the last 12 months, was t here a time when you were not able to pay the mortgage or rent on time? Yes 12/18/2023 Number of Times Moved in the Last Year Not on fi le 12/18/2023 At any time in the past 12 m [facility], were you homeless or living in a long-term (including now)? Yes 12/18/2023 Sexually Active Control Partners Comments Not Currently Condom Male Comments No Sex and Gender Information Value Date Recorded Sex Assigned at Not on file Legal Sex Female 2:43 PM EDT Gender Identity Not on file Sexual Orientation Not on file documented as of this encounter Last Filed Vital Signs Vital Sign Reading Time Taken Comments Blood Pressure 156/83 10/21/2024 2:12 PM EDT Pulse 105 10/21/2024 2:12 PM EDT Temperature 36.2 C (97.2 F) 10/21/2024 2:12 PM EDT Respiratory Rate 20 10/21/2024 2:12 PM EDT Oxygen Saturation 97% 10/21/2024 2:12 PM EDT Inhaled Oxygen Concentration - - Weight 113.9 kg (251 lb) 10/21/2024 2:12 PM EDT Height 163.8 cm (5' 4.5 ) 10/21/2024 2:12 PM EDT Body Mass Index 42.42 10/21/2024 2:12 PM EDT documented in this encounter Functional Status * Is the person deaf or does he/she have serious difficulty hearing? Answer Date of Assessment Author No 05/25/2019 2:54 PM EDT Watson Barry CMA * Is the person blind or does he/she have serious difficulty seeing even when wearing glasses? Answer Date of Assessment Author No 05/25/2019 2:54 PM EDT Watson Barry CMA * Does this person have serious difficulty walking or climbing stairs? Answer Date of Assessment Author No 05/25/2019 2:54 PM EDT Watson Barry CMA * Does this person have difficulty dressing or bathing? Answer Date of Assessment Author No 05/25/2019 2:54 PM EDT Watson Barry CMA * Because of a physical, mental or emotional condition, does this person have difficulty doing errands alone such as visiting a doctor's office or shopping? Answer Date of Assessment Author No 05/25/2019 2:54 PM EDT Watson Barry CMA * PHQ-9 Total Score Answer Date of Assessment Author 0 10/21/2024 2:15 PM EDT Juani Toledo RMA * Question Answer Date of Assessment Author Little interest or pleasure in doing things 0 10/21/2024 2:15 PM EDT Juani Hawkins RMA Feeling down, depressed, or hopeless 0 10/21/2024 2:15 PM EDT Juani Hawkins RMA PHQ-2 Total Score 0 10/21/2024 2:15 PM EDT Juani Hawkins RMA * Question Answer Date of Assessment Author Trouble falling or staying asleep, or sleeping too much 0 10/21/2024 2:15 PM EDT Juani Elliott RMA Feeling tired or having kailey le energy 0 10/21/2024 2:15 PM EDT Juani Hawkins RMA Poor appetite or overeating 0 10/21/2024 2: 15 PM EDT Juani Hawkins RMA Feeling bad about yourself - or that you are a failure or have let yourself or your family down 0 10/21/2024 2:15 PM EDT Juani Hawkins RMA Trouble concentrating on things, such as reading the newspaper or watching television 0 10/21/2024 2:15 PM EDT Juani Hawkins RMA Moving or speaking so slowly that other people could have noticed. Or the opposite - being so fidgety or restless that you have been moving around a lot more than usual 0 10/21/2024 2:15 PM EDT Juani Elliott RMA Thoughts that you would be better off , or of hurting yourself in some way 0 10/21/2024 2:15 PM EDT Shireen Hawkins RMA * PHQ-2 Total Score Answer Date of Assessment Author 0 10/21/2024 2:15 PM EDT Juani Toledo RMA documented as of this encounter Mental Status * Because of a physical, mental or emotional condition, does this person have serious difficulty concentrating, remembering or making decisions? Answer Entry Date Author No 05/25/2019 2:54 PM EDT Watson Barry, COMMUNICATIONS SCIENTIST documented in this encounter Ordered Prescriptions Prescription Sig Dispense Quantity Refills Last Filled Start Date End Date benazepriL (LOTENSIN) 40 mg Oral TabletIndications: hypertension Take 1 Tablet by mouth daily. Indications: high blood pressure 90 Tablet 3 10/21/2024 documented in this encounter Progress Notes * Faiza Ramirez APRN - 10/21/2024 4:30 PM EDTAssociated Problem(s): Essential hypertension Goal BP: <130/80 BP Readings from Last 3 Encounters: 10/21/24 (!) 156/83 06/13/24 (!) 172/110 04/27/24 (!) 199/127 - not at goal Compliance: - non-compliant with medication. Advised to take medication as prescribed. - attempting to reach goal with dietary and lifestyle changes without medication Home Blood Pressure Monitoring: - start recording home BP readings 5 times per week Advice: - weight loss - reduced salt intake ( <1500 mg per day) - increased physical activity - DASH diet (consume a diet rich in fruits, vegetables, whole grains, and low- fat dairy products, with reduced content of saturated and total fat) Medication Management: - medication management decisions took place at today's visit (see orders) Orders: benazepriL (LOTENSIN) 40 mg Oral Tablet; Take 1 Tablet by mouth daily. Indications: high blood pressure * Faiza Ramirez APRN - 10/21/2024 4:30 PM EDTAssociated Problem(s): Morbid (severe) obesity due to excess calories (HCC) Goals: - lose 10 pounds in 3 months (4 pounds the first month and 3 pounds the next two months) Advice: - exercise 30 minutes daily - reduce calories to 1200 calories daily - low carb diet * Faiza Ramirez APRN - 10/21/2024 4:30 PM EDTAssociated Problem(s): Opioid use disorder, severe, dependence (HCC) Stable on suboxone therapy since 2012 * Faiza Ramirez APRN - 10/21/2024 4:30 PM EDT Assessment & Plan Essential hypertension Goal BP: <130/80 BP Readings from Last 3 Encounters: 10/21/24 (!) 156/83 06/13/24 (!) 172/110 04/27/24 (!) 199/127 - not at goal Compliance: - non-compliant with medication. Advised to take medication as prescribed. - attempting to reach goal with dietary and lifestyle changes without medication Home Blood Pressure Monitoring: - start recording home BP readings 5 times per week Advice: - weight loss - reduced salt intake ( <1500 mg per day) - increased physical activity - DASH diet (consume a diet rich in fruits, vegetables, whole grains, and low- fat dairy products, with reduced content of saturated and total fat) Medication Management: - medication management decisions took place at today's visit (see orders) Orders: benazepriL (LOTENSIN) 40 mg Oral Tablet; Take 1 Tablet by mouth daily. Indications: high blood pressure Visit for screening mammogram Orders: MM MAMMO DIGITAL CHERYL SCREEN BILAT; Future Morbid (severe) obesity due to excess calories (HCC) Goals: - lose 10 pounds in 3 months (4 pounds the first month and 3 pounds the next two months) Advice: - exercise 30 minutes daily - reduce calories to 1200 calories daily - low carb diet Opioid use disorder, severe, dependence (HCC) Stable on suboxone therapy since 2012 Progress Note: Vitals: 10/21/24 1412 BP: (!) 156/83 Pulse: 105 Resp: 20 Temp: 97.2 ??F (36.2 ??C) TempSrc: Temporal SpO2: 97% Weight: 251 lb (113.9 kg) Height: 5' 4.5 (1.638 m) Body mass index is 42.42 kg/m??. SUBJECTIVE: Chief Complaint Patient presents with Hypertension 212/117 HPI: Hypertension: Reports elevated blood pressure at home. Home reporting of hypertension was reviewed at time of visit. Sissy denies any episodes of dizziness,lightheadedness, presyncope, syncope, headache, or chest pain. Sissy reports swelling of feet and ankles when taking her Lotrel. The patient reports that she does not take prescribed medication. Review of Systems Constitutional: Negative. Respiratory: Negative. Cardiovascular: Negative. Gastrointestinal: Negative. Skin: Negative. Neurological: Negative. Psychiatric/Behavioral: Negative. OBJECTIVE: Physical Exam Vitals reviewed. Constitutional: General: She is not in acute distress. HENT: Mouth/Throat: Mouth: Mucous membranes are moist. Eyes: Conjunctiva/sclera: Conjunctivae normal. Cardiovascular: Rate and Rhythm: Normal rate and regular rhythm. Pulmonary: Effort: Pulmonary effort is normal. Breath sounds: Normal breath sounds. Abdominal: Tenderness: There is no abdominal tenderness. Musculoskeletal: Cervical back: Neck supple. Right lower leg: No edema. Left lower leg: No edema. Skin: General: Skin is warm. Coloration: Skin is not jaundiced. Findings: No rash. Neurological: Mental Status: She is alert and oriented to person, place, and time. Psychiatric: Mood and Affect: Mood normal. Thought Content: Thought content normal. documented in this encounter Plan of Treatment Scheduled Orders Name Type Priority Associated Diagnoses Orde r Schedule MM MAMMO DIGITAL CHERYL SCREEN BILAT Imaging Routine Visit for screening mammogram 1 Occurrences starting 10/23/2024 until 10/21/2026 documented as of this encounter Goals Goal Patient Goal Type Associated Problems Recent Progress Patient-Stated? Author Blood Pressure < 140/90 Blood Pressure 156/83(2024 2:12 PM EDT) No Laura Brooke RMA Maintain a healthy diet, exercise regularly and maintain an ideal body weight General No Faiza Mccollum CCMA Stay Tobacco Free Lifestyle No Faiza Mccollum CCMA documented as of this encounter Visit Diagnoses Diagnosis Essential hypertension- Primary Unspecified essential hypertension Visit for screening mammogram Other screening mammogram Morbid (severe) obesity due to excess calories (HCC) Opioid use disorder, severe, dependence (HCC) documented in this encounter Discontinued Medications Medication Sig Discontinue Reason Start Date End Da te amLODIPine-benazepril (LOTREL) 5-20 mg Oral Capsule Take 1 Capsule by mouth daily. Dose adjustment 07/08/2022 10/21/2024 valsartan (DIOVAN) 40 mg Oral Tablet Take 1 Tablet by mouth daily. 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 07/20/2023 documented as of this encounter Care Teams Assistant Professor Of Life Sciences Relationship Specialty Start Date End Date Garcia Villavicencio MD [address] [place], [place] [address] PCP - OBGYN 07/24/09 Garcia Villavicencio MD [address] [place] [address] PCP - Pediatrics 07/24/09 Garcia Villavicencio MD [address] [place] [address] PCP - Behavioral Health 07/24/09 Josiah Savage MD PCP - Hematology/Oncology 07/31/09 James Silveira MD [address] [place] [address] PCP - General Family Medicine 08/08/15 documented as of this encounter
[2024-11-09 19:50] LABS: Hematocrit 38.5 % (37.0-47.0); Hemoglobin 10.8 g/dL (12.2-16.2); Immature Granulocytes % 0.3 %; Mean Corpuscular HGB Conc 28.1 g/dL (31.8-35.4); Mean Corpuscular Hemoglobin 18.9 pg (27.0-31.2); Mean Corpuscular Volume 67.3 fl (81-99); Nucleated Red Blood Cells % 0 %; Platelet Count 464 K/mm3 (142-424); Red Blood Count 5.72 M/mm3 (4.20-5.40); Red Cell Distribution Width-SD 43.6 fL; White Blood Count 8.7 K/mm3 (4.8-10.8)
[2024-11-09 20:33] LABS: Alanine Aminotransferase 21 U/L (12-78); Albumin Level 4.3 g/dl (3.5-5.0); Albumin/Globulin Ratio 1.4 (1.1-1.8); Alkaline Phosphatase 198 U/L (38-126); Anion Gap 12.6 mEq/L (5-15); Aspartate Amino Transferase 30 U/L (14-36); Bilirubin,Total 0.2 mg/dl (0.2-1.3); Blood Urea Nitrogen 13 mg/dl (7-17); Calcium 9.4 mg/dl (8.4-10.2); Carbon Dioxide 27 mmol/L (22.0-30.0); Chloride 105 mmol/L (98-107); Cholesterol 165 mg/dl (140-200); Creatinine,Serum 0.60 mg/dl (0.52-1.04); Estimated Glomerular Filt Rate 107 ml/min (>60); GFR (African American) 129 ML/MIN (>60); Globulin 3.0 g/dL (1.3-3.2); Glucose 133 mg/dl (74-100); HDL Cholesterol 58 mg/dl (40-60); Potassium 3.6 mmoL/L (3.5-5.1); Sodium 141 mmol/L (136-145); Total Protein,Serum 7.3 g/dl (6.3-8.2); Triglycerides 98 mg/dl (30-150)
[2024-11-09 20:50] LABS: 25-OH Vitamin D, Total 24.8 ng/mL (30-100)
[2024-11-09 21:10] LABS: Hemoglobin A1C 6.8 % (4.0-6.0)
[2024-11-09 21:21] LABS: Hepatitis C Ab Qual. W/ RFX REACTIVE (Negative)
[2024-11-09 21:24] LABS: Vitamin B12 449 pg/mL (239-931)
[2024-11-09 22:05] LABS: Thyroid Stimulating Hormone 6.16 uIU/mL (0.465-4.68)
--- OUTSIDE RECORDS SUMMARY | 2024-11-11 08:38 | XMS_ITS | Encounter Summary ---
Author Organization [facility] [place] [address] Care Team Providers Care Copywriting Intern Name Role Phone Garcia Villavicencio MD Unavailable [phone] Garcia Villavicencio MD Unavailable [phone] Garcia Villavicencio MD Unavailable [phone] Josiah Savage MD Unavailable Unavailable James Silveira MD Primary Care Provider [phone] Reason for Visit * Reason Onset Date Comments Appointment Needed 09/28/2024 Encounter Details Date Type Department Care Team (Late st Contact Info) Description 09/28/2024 Telephone SEP [facility] [place] [address] James Silveira MD [facility] [address] Appointment Needed (/) Social History Tobacco Use Types Packs/Day Years [...] Answer Date Recorded PHQ-2 Total Score 0 05/29/2021 [facility] [place] of Occupat ional Health - Occupational Stress [...] any time in the past 12 m [facility], were you homeless or living in a custodial (including now)? Yes 12/18/2023 Sexually Active Control Partners Comments Not Currently Condom Male Comments No Sex and Gender Information Value Date Recorded Sex Assigned at Not on file Legal Sex Female 2:43 PM EDT Gender Identity Not on file Sexual Orientation Not on file documented as of this encounter Functional Status * Is the [...] Assessment Author No 05/25/2019 2:54 PM EDT Watsno Barry CMA * Does this person have difficulty dressing or bathing? Answer Date of Assessment Author No 05/25/2019 2:54 PM EDT Watson Barry CMA * Because of a physical, mental or emotional condition, does this person have difficulty doing errands alone such as visiting a doctor's office or shopping? Answer Date of Assessment Author No 05/25/2019 2:54 PM EDT Watson Barry CMA documented as of this encounter Mental Status * Because of a physical, mental or emotional condition, does this person have serious difficulty concentrating, remembering or making decisions? Answer Entry Date Author No 05/25/2019 2:54 PM EDT Watson Barry CMA documented in this encounter Miscellaneous Notes * Telephone Encounter - Laura Brooke RMA - 09/28/2024 11:27 AM EDT Herbert for pt to schedule AWV. documented in this encounter Plan of Treatment Not on file documented as of this encounter Goals Goal Patient Goal Type Associated Problems Recent Progress Patient-Stated? Author Blood Pressure < 140/90 Blood Pressure 156/83(2024 2:12 PM EDT) No Laura Brooke RMA Maintain a healthy diet, exercise regularly and maintain an ideal body weight General No Faiza Mccollum CCMA Stay Tobacco Free Lifestyle No Faiza Mccollum CCMA documented as of this encounter Visit Diagnoses Not on filedocumented in this encounter Additional Health Concerns Infection Onset Date Last Indicated Resolved Time MRSA 07/20/2023 07/20/2023 documented as of this encounter Care Teams Copywriting Intern Relationship Specialty Start Date End Date Garcia Villavicencio MD [address] [place] [address] PCP - OBGYN 07/24/09 Garcia Villavicencio MD [address] [place] [address] PCP - Pediatrics 07/24/09 Garcia Villavicencio MD [address] [place] [address] PCP - Behavioral Health 07/24/09 Josiah Savage MD PCP - Hematology/Oncology 07/31/09 James Silveira MD [address] [facility] [address] [place] [address] PCP - General Family Medicine 08/08/15 documented as of this encounter
--- OUTSIDE RECORDS SUMMARY | 2024-11-11 08:38 | XMS_ITS | Clinical Summary ---
Author Organization [facility] Address [facility] [address] [address] Care Team Providers Care Family Service Worker Name Role Phone Unavailable Primary Care Provider Unavailabl e Social History Tobacco Use Types Packs/Day Years Used Date Smoking Tobacco: Never Assessed Comments Unknown Sex and Gender Information Value Date Recorded Sex Assigned at Not on file Legal Sex Female 7:24 PM EDT Gender Identity Not on file Sexual Orientation Not on file Plan of Treatment Health Maintenance Due Date Last Done Comments Pap Screening 1997 Mammogram Screening 2016 Colonoscopy 2021 DTap,Tdap,and Td (2 - Td or Tdap) 01/06/2022 01/07/2012 Influenza Vaccine (#1) 2024 0, 03/20/2016, 03/16/2013, Additional history exists RSV Vaccine (60+ or ) (1 - 1-dose 75+ series) 05/18/2051 Pneumococcal 0-49 Aged Out 08/08/2015, 01/11/2007 No longer eligible based on patient's age to complete this topic HPV Aged Out No longer eligi ble based on patient's age to complete this topic Meningococcal conjugate valent 4 (MCV4) Aged Out No longer eligible based on patient's age to complete this topic RSV Immunization (<20 months) Aged Out No longer eligible based on patient's age to complete this topic
--- OUTSIDE RECORDS SUMMARY | 2024-11-11 08:38 | XMS_ITS | Encounter Summary ---
Author Organization [place] [address] Care Team Providers Care Dispatcher Maintenance Service Name Role Phone Garcia Villavicencio MD Unavailable [phone] Garcia Villavicencio MD Unavailable [phone] Garcia Villavicencio MD Unavailable [phone] Josiah Savage MD Unavailable Unavailable James Silveira MD Primary Care Provider [phone] Reason for Visit * Reason Onset Date Comments Appointment Needed 10/21/2024 Elevated BP Encounter Details Date Type Department Care Team (Late st Contact Info) Description 10/21/2024 Telephone SEP [facility] [place] [address] James Silveira MD [employer] [place] [address] Appointment Needed (Elevated BP ) Social History Tobacco Use Types Packs/Day Years [...] Date Recorded PHQ-2 Total Score 0 10/21/2024 [facility] [place] of Occupat ional Health - Occupational Stress [...] any time in the past 12 m [facility], were you homeless or living in a alf (including now)? Yes 12/18/2023 Sexually Active Control [...] of Assessment Author No 05/25/2019 2:54 PM Watson Kline CMA * Does this person have difficulty dressing or bathing? Answer Date of Assessment Author No 05/25/2019 2:54 PM EDT Watson Barry CMA * Because of a physical, mental or emotional condition, does this person have difficulty doing errands alone such as visiting a doctor's office or shopping? Answer Date of Assessment Author No 05/25/2019 2:54 PM EDT Watson Barry, APIARIST * PHQ-9 Total Score Answer Date of [...] encounter Miscellaneous Notes * Telephone Encounter - Juani Hawkins RMA - 10/21/2024 12:27 PM EDT Appt scheduled * Telephone Encounter - Lorrie Garcia MA - 10/21/2024 11:50 AM EDT Please advise, patient asking to be worked in with her daughter at 2:15 with you guys today * Telephone Encounter - Abby Atkins MA - 10/21/2024 11:43 AM EDT Select the most appropriate reason for this telephone message: Appointment Needed Appointment Requested By: Patient Provider Preference: Any Available Type of Appt Needed: Office Visit Detailed Reason for Appt: Elevated BP per BATS message sent on 10/20. Pt was not transferred to nurse triage related to out of perimeter BP as reading was noted yesterday, and not today. Requested Timeframe: Today Reason Scheduling Assistance is Needed: [id number] Scheduling Kiersten Atkins. Return Method of Communication: Phone Call Additional Information: Pt reports elevated BP reading yesterday and is asking if she can be scheduled back to back with her daughter who is scheduled today. Please advise-thank you. documented in this encounter Plan of Treatment [...] documented as of this encounter Care Teams Dispatcher Maintenance Service Relationship Specialty Start Date End Date Garcia Villavicencio MD [address] [place] [address] PCP - OBGYN 07/24/09 Garcia Villavicencio MD [address] [place] [address] PCP - Pediatrics 07/24/09 Garcia Villavicencio MD [address] [place] [address] PCP - Behavioral Health 07/24/09 Josiah Savage MD PCP - Hematology/Oncology 07/31/09 James Silveira MD [employer] [address] [place] [address] PCP - General Family Medicine 08/08/15 documented as of this encounter
--- OUTSIDE RECORDS SUMMARY | 2024-11-11 08:38 | XMS_ITS | Encounter Summary ---
Author Organization [facility] Address [address] [place] [address] Care Team Providers Care Account Leader Name Role Phone Ricky Zelaya MD Primary Care Provider [phone] None, None Primary Care Provider Unavailabl e Reason for Visit * Reason Comments Medications Refill Encounter Details Date Type Department Care Team (Late st Contact Info) Description 06/10/2013 Refill [facility] - Primary Care, [place] [address] [place] [address] [place] [address] Medications Refill Social History Tobacco Use Types Packs/Day Years Used Date Smoking Tobacco: Every Day Cigarettes Smokeless Tobacco: Never Alcohol Use Standard Drinks/Week Comments No 0 (1 standard drink = 0.6 oz pur e alcohol) Comments No Sex and Gender Information Value Date Recorded Sex Assigned at Not on file Legal Sex Female 6:57 PM EST Gender Identity Not on file Sexual Orientation Not on file documented as of this encounter Plan of Treatment Not on file documented as of this encounter Visit Diagnoses Not on filedocumented in this encounter Care Teams Account Leader Relationship Specialty Start Date End Date Ricky Zelaya MD PCP - General Family Medicine 06/18/11 01/02/15 None, None [address] [place] [address] PCP - General 01/03/15 documented as of this encounter
--- OUTSIDE RECORDS SUMMARY | 2024-11-11 08:38 | XMS_ITS | Clinical Summary ---
Author Organization [facility] Address [address] [place] [address] Care Team Providers Care Precision Dancer Name Role Phone Unknown, Attending Provider Primary Care Provide r Unavailable Source Comments This information has been disclosed to you from confidential records protectedfrom disclosure by state law. You shall make no further disclosure of thisinformation without the specific, written, and informed release of theindividual to whom it pertains, or as otherwise permitted by law. A generalauthorization for the release of medical or other information is not sufficientfor the purposes of therelease of HIV test results or diagnoses. [id number] Allergies No known active allergies Medications ibuprofen (ADVIL,MOTRIN) 800 MG tablet Take 1 tablet (800 mg total) by mouth every 8 hours as needed for Pain. 30 tablet 0 07/11/2012 Active Immunizations Immunization Administration Dates Next Due Influenza, unspecified 01/11/2007 Pneumococcal polysaccharide, 23-valent 7 Social History Tobacco Use Types Packs/Day Years Used Date Smoking Tobacco: Former Cigarettes Alcohol Use Standard Drinks/Week Comments No 0 (1 standard drink = 0.6 oz pur e alcohol) Comments No Sex and Gender Information Value Date Recorded Sex Assigned at Not on file Legal Sex Female 4:22 PM EST Gender Identity Not on file Sexual Orientation Not on file Last Filed Vital Signs Vital Sign Reading Time Taken Comments Blood Pressure 122/73 07/11/2012 6:00 PM EDT Pulse 85 07/11/2012 6:00 PM EDT Temperature 36.9 C (98.5 F) 07/11/2012 6:00 PM EDT Respiratory Rate 18 07/11/2012 6:00 PM EDT Oxygen Saturation 98% 07/11/2012 6:00 PM EDT Inhaled Oxygen Concentration 98% 07/11/2012 6 :00 PM EDT Weight - - Height - - Body Mass Index - - Plan of Treatment Not on file Insurance MEDICAID [place] [employer] CHOICE O MEDICARE Care Teams Precision Dancer Relationship Specialty Start Date End Date Unknown, Attending Provider PCP - General 07/11/12
--- OUTSIDE RECORDS SUMMARY | 2024-11-11 08:38 | XMS_ITS | Encounter Summary ---
Author Organization [facility] Address [address] [place] [address] Care Team Providers Care Development Coach Name Role Phone Ricky Zelaya MD Primary Care Provider [phone] None, None Primary Care Provider Unavailabl e Reason for Visit * Reason Comments Medications Refill Encounter Details Date Type Department Care Team (Late st Contact Info) Description 06/10/2013 Refill [facility] Physicians - Primary Care, [place] [address] [place] [address] [place] [address] Medications Refill Social History Tobacco Use Types [...] on filedocumented in this encounter Care Teams Development Coach Relationship Specialty Start Date End Date Ricky Zelaya MD PCP - General Family Medicine 06/18/11 01/02/15 None, None [address] [place] [address] PCP - General 01/03/15 documented as of this encounter
--- OUTSIDE RECORDS SUMMARY | 2024-11-11 08:38 | XMS_ITS | Referral Summary ---
Author Organization [facility] Address [facility] [place][note 2] [facility] [place] [address] Care Team Providers Care Propulsion Engineer Name Role Phone Unavailable Primary Care Provider Unavailabl e Social History Tobacco Use Types Packs/Day Years Used Date Smoking Tobacco: Never Assessed Comments Unknown Sex and Gender Information Value Date Recorded Sex Assigned at Not on file Legal Sex Female 7:24 PM EDT Gender Identity Not on file Sexual Orientation Not on file Plan of Treatment Not on file
--- OUTSIDE RECORDS SUMMARY | 2024-11-11 08:38 | XMS_ITS | Clinical Summary ---
Author Organization [facility] Address [address] [place] [address] Care Team Providers Care Mold Yarn Supervisor Name Role Phone None, None Primary Care Provider Unavailabl e Allergies Active Allergy Reactions Criticality Noted Date Comments Banana Swelling 11/14/2013 Medications sertraline (ZOLOFT) 50 mg PO tabletIndicatio ns: depression Take 1 Tab by mouth daily. 30 Tab 2 3 Active hydrOXYzine Pamoate (VISTARIL) 25 mg PO capsuleIndicati ons:Anxiety Take 1 Cap by mouth every 6 hours as needed for Itching. 30 Cap 1 3 Active furosemide (LASIX) 20 mg PO tablet TAKE 1 TABLET BY MOUTH DAILY 30 Tab 2 4 Active clonazePAM (KLONOPIN) 1 mg PO tabletIndicatio ns:Anxiety Take 1 Tab by mouth 2 times daily as needed. 30 Tab 0 4 Active buprenorphine-n aloxone (SUBOXONE) 8-2 mg SL FilmIndications :Opiate dependence (CMS/HCC) Place 3 Film under tongue daily. 90 Film 0 4 Active Additional Information Patient taking differently:3 Film Sublingual DAILY,Gets from Suboxone clinic in [place], Reported on 12/07/2014 tiZANidine (ZANAFLEX) 4 mg PO tablet TAKE 1 TABLET EVERY 8 HOURS NEEDED 90 Tab 1 4 Active ibuprofen (MOTRIN) 800 mg PO tablet TAKE 1 TABLET EVERY 8 HOURS NEEDED FOR PAIN 90 Tab 0 4 Active cloNIDine (CATAPRESS) 0.1 mg PO tablet Take 1 Tab by mouth 3 times daily. 21 Tab 0 4 Active ketorolac (TORADOL) 10 mg PO tablet Take 1 Tab by mouth 3 times daily. 14 Tab 0 4 Active fluticasone (FLONASE) 50 mcg/actuation nasal spray 2 sprays each nostril daily. 1 Bottle 0 5 Active amLODIPine (NORVASC) 5 mg tablet TAKE 1 TABLET EVERY DAY 30 Tab 3 5 Active ibuprofen (MOTRIN) 600 mg tablet TAKE 1 TAB BY MOUTH EVERY 6 HOURS NEEDED FOR PAIN FOR UP TO 10 DAYS. 60 Tab 1 6 Active Active Problems Problem Noted Date Diagnosed Date Opiate dependence 08/27/2011 Immunizations Immunization Administration Dates Next Due Influenza (whole) 03/16/2013,04/07/2011 Family History Relation Name Status Comments Brother 1 Alive Brother 2 Father Mother Alive Sister 1 Alive Sister 2 Alive Social History Tobacco Use Types Packs/Day Years Used Date Smoking Tobacco: Every Day Cigarettes Smokeless Tobacco: Never Tobacco Cessation:Counseling Given: Yes Comments:enc cessation Alcohol Use Standard Drinks/Week Comments No 0 (1 standard drink = 0.6 oz pur e alcohol) Comments No Sex and Gender Information Value Date Recorded Sex Assigned at Not on file Legal Sex Female 6:57 PM EST Gender Identity Not on file Sexual Orientation Not on file Last Filed Vital Signs Vital Sign Reading Time Taken Comments Blood Pressure 134/80 12/07/2014 4:29 PM EDT Pulse 71 12/07/2014 3:00 PM EDT Temperature 37.1 C (98.7 F) 12/07/2014 3:00 PM EDT Respiratory Rate 16 12/07/2014 3:00 PM EDT Oxygen Saturation 97% 12/07/2014 3:00 PM EDT Inhaled Oxygen Concentration - - Weight 94.8 kg (209 lb) 12/07/2014 3:00 PM EDT Height 162.6 cm (5' 4 ) 12/07/2014 3:00 PM EDT Body Mass Index 35.87 12/07/2014 3:00 PM EDT Plan of Treatment Health Maintenance Due Date Last Done Comments Cologuard 1976 Colonoscopy 1976 Colorectal Cancer Screening 1976 FIT 1976 Lipid Screening 1994 Tetanus Vaccination (Every 10 Years) 1994 Cervical Cancer Screening 1997 Depression Screening 03/09/2024 COVID-19 Vaccine ( season) 2024 Influenza Vaccination (#1) 2024 03/16/2013, Influenza Vaccination (Yearly) Discontinued 03/16/2013 , 04/07/2011 Insurance MEDICAID [place] HU[employer]NA MEDICARE MEDICAID [place] HU[employer]NA MEDICARE Care Teams Mold Yarn Supervisor Relationship Specialty Start Date End Date None, None [address] [place] [address] PCP - General 01/03/15
--- OUTSIDE RECORDS SUMMARY | 2024-11-11 08:38 | XMS_ITS | Clinical Summary ---
Author Organization [facility] Address [address] [place] [address] Phone Care Team Providers Care Order Control Clerk Blood Bank Name Role Phone Unavailable Unavailable Conditions or Problems No information available. Medications No information available. Medications Administered No information available. Allergies, Adverse Reactions, Alerts No information available. Results No information available. Plan of Care No information available. Procedures No information available. Vital Signs No information available. Immunizations No information available. Advance Directives No information available.
--- OUTSIDE RECORDS SUMMARY | 2024-11-11 08:38 | XMS_ITS | Encounter Summary ---
Author Organization [facility] [place] [address] Care Team Providers Care In Home Baby Sitter Name Role Phone Garcia Villavicencio MD Unavailable [phone] Garcia Villavicencio MD Unavailable [phone] Garcia Villavicencio MD Unavailable [phone] Josiah Savage MD Unavailable Unavailable James Silveira MD Primary Care Provider [phone] Reason for Visit * Reason Onset Date Comments Central Order Completion Outreach 09/22/2024 mammo Encounter Details Date Type Department Care Team (Late st Contact Info) Description 09/22/2024 Patient Outreach SEP VB [address] [place] [address] James Silveira [place] [address] Central Order Completion Outreach (mammo) Social History Tobacco Use Types Packs/Day Years [...] Date Recorded PHQ-2 Total Score 0 05/29/2021 [facility] [place] [facility] Occupat ional Health - Occupational Stress [...] any time in the past 12 m [facility], were you homeless or living in a chcf (including now)? Yes 12/18/2023 Sexually Active Control [...] Watson Barry CMA documented in this encounter Progress Notes * Trupti Cruz RN - 09/30/2024 11:19 AM EDT SEP Order Completion Outcome Tracking Contact Attempt:: Final Mammogram Outcome:: Left Voicemail to Return Call at [phone] * Lela Olivo RN - 09/22/2024 2:11 PM EDT SEP Order Completion Outcome Tracking Contact Attempt:: First Mammogram Outcome:: Left Voicemail to Return Call at [phone], MyChart Message documented in this encounter Plan of Treatment Not on file documented as of this encounter Goals Goal Patient Goal Type Associated Problems Recent Progress Patient-Stated? 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
--- OUTSIDE RECORDS SUMMARY | 2024-11-11 08:39 | XMS_ITS | Encounter Summary ---
Author Organization [facility] Address [address] [place] [address] Care Team Providers Care Programming Instructor Name Role Phone Ricky Zelaya MD Primary Care Provider [phone] None, None Primary Care Provider Unavailabl e Reason for Visit * Reason Comments Medications Refill Encounter Details Date Type Department Care Team (Late st Contact Info) Description 04/15/2013 Refill [facility] Physicians - Primary Care, [place] [address] [place] [address] [place] [address] Medications Refill Social History Tobacco Use Types [...] on file documented as of this encounter Miscellaneous Notes * Telephone Encounter - July Guillen - 04/15/2013 2:32 PM EST ZAC UP TO DATE LAST OV 04/15/13 LAST REF 03/16/2013. documented in this encounter Plan of Treatment Not on file documented as of this encounter Visit Diagnoses Not on filedocumented in this encounter Care Teams Programming Instructor Relationship Specialty Start Date End Date Ricky Zelaya MD PCP - General Family Medicine 06/18/11 01/02/15 None, None [address] [place] [address] PCP - General 01/03/15 documented as of this encounter
--- OUTSIDE RECORDS SUMMARY | 2024-11-11 08:39 | XMS_ITS | Clinical Summary ---
Author Organization [facility] Address [address] [place] [address] Phone Care Team Providers Care Gas Inspector Name Role Phone Garcia Villavicencio MD Unavailable [phone] Garcia Villavicencio MD Unavailable [phone] Garcia Villavicencio MD Unavailable [phone] Josiah Savage MD Unavailable Unavailable James Silveira MD Primary Care Provider Allergies Active Allergy Reactions Criticality Noted Date Comments Banana Swelling 01/07/2012 Nitrofurantoin Monohyd/M-Cryst Nausea And Vomiting 03/21/2016 Cefdinir Rash 01/27/2020 Medications * This document contains information received from the source organization and may not represent a complete record from that organization. VENTOLIN HFA 90 mcg/actuation Inhl HFA Aerosol InhalerIndicatio ns:Acute bacterial sinusitis INHALE 2 PUFFS BY MOUTH EVERY 4 HOURS NEEDED FOR WHEEZE 18 Inhaler 11/03/19 19 Active Additional Information Patient not taking.Reported on 06/13/2024 meclizine (ANTIVERT) 12.5 mg Oral TabletIndication s:Tinnitus of both ears Take 1-2 Tabs by mouth 3 times daily as needed. 45 Tab 01/27/20 19 Active pseudoephedrine (SUDAFED) 30 mg Oral TabletIndication s:Dizziness,Flui d level behind tympanic membrane of both ears 1-2 tabs every 4-6 hours for congestion 48 Tab 02/16/20 19 Active Additional Information Patient not taking.Reported on 06/13/2024 fluticasone propionate (FLONASE) 50 mcg/actuation Nasl [place], SuspensionIndica tions:Chronic sinusitis, unspecified location 1 [place] by Nasal route daily. 1 Bottle 2 04/29/19 21 Active clonazePAM (KLONOPIN) 1 mg Oral Tablet 06/28/19 23 Active sertraline (ZOLOFT) 50 mg Oral Tablet TAKE 1 TABLET EVERY DAY 30 Tablet 10/09/19 23 Active Additional Information Patient not taking.Reported on 06/13/2024 IBU 600 mg Oral TabletIndication s:Acute bacterial sinusitis TAKE 1 TABLET EVERY 6 HOURS. CAN TAKE IF NEEDED FOR PAIN OR FEVER 120 Tablet 3 11/18/19 23 Active buprenorphine-na loxone (SUBOXONE) 8-2 mg SL Film 07/20/19 24 Active nalOXone (NARCAN) 4 mg/actuation Nasl [place], Non-Aerosol 11/20/19 23 Active NYSTOP Top Powder APPLY 1 APPLICATION TOPICALLY THREE TIMES DAILY 07/18/19 24 Active ondansetron (ZOFRAN) 4 mg Oral Tablet TAKE 1 TABLET BY MOUTH THREE TIMES A DAY NEEDED FOR NAUSEA AND VOMITING 04/18/19 24 Active fUROsemide (LASIX) 20 mg Oral TabletIndication s:Right leg swelling TAKE 1 TABLET EVERY DAY NEEDED 90 Tablet 3 12/03/19 24 Active tiZANidine (ZANAFLEX) 4 mg Oral Tablet TAKE 1 TABLET THREE TIMES DAILY 270 Tablet 3 12/03/19 24 Active triamcinolone (KENALOG) 0.1 % Top Ointment Apply topically 2 times daily. 80 g 2 12/30/19 24 Active hydroCHLOROthiaz daisy 25 mg Oral TabletIndication s:Essential hypertension Take 1 Tablet by mouth daily. 90 Tablet 3 12/30/19 24 Active polyethylene glycol (GOLYTELY) 236-22.74-6.74 -5.86 gram Oral Recon Soln take as directed by office 1 Each 01/26/20 24 Active benazepriL (LOTENSIN) 40 mg Oral TabletIndication s:hypertension Take 1 Tablet by mouth daily. Indications: high blood pressure 90 Tablet 3 10/22/19 25 Active amLODIPine-benaz epril (LOTREL) 5-20 mg Oral Capsule Take 1 Capsule by mouth daily. 07/09/19 23 025 Discontin ued(Dose adjustmen t) valsartan (DIOVAN) 40 mg Oral Tablet Take 1 Tablet by mouth daily. 90 Tablet 3 12/30/19 24 025 Discontin ued(Cance lled by Midlevel) Active Problems Patient Care Coordination No te Formatting of this note migh t be different from the original. Care gap audit completed by Keely Alas RN on 01/16/2023. Problem Noted Date Diagnosed Date Morbid (severe) obesity due to excess calories 0 10/23/2024 Assessment & Plan (10/23/2024 9:50 PM EDT): Goals: - lose 10 pounds in 3 months (4 pounds the first month and 3 pounds the next two months) Advice: - exercise 30 minutes daily - reduce calories to 1200 calories daily - low carb diet Dilatation of esophagus 06/13/2024 Obesity, Class II, BMI 35-39.9 03/01/2024 Esophageal dysphagia 07/08/2022 Overview (07/08/2022): Added automatically from request for surgery [id number] Gastroesophageal reflux disease without esophagi tis 07/08/2022 Overview (07/08/2022): Added automatically from request for surgery [id number] Full code status 05/25/2019 Living will, counseling/discussion 05/25/2019 Overview (05/25/2019): Documentation requested Iron deficiency anemia 07/14/2016 Overview (05/25/2019): Not taking iron. Screening for HIV (human immunodeficiency virus) 08/08/2015 Overview (08/08/2015): Negative 2011 Screening for depression 08/08/2015 Overview (05/25/2019): In the past two weeks, how often have you felt down, depressed, or hopeless? None Have you felt little interest or pleasure in doing things? no Alcohol screening 08/08/2015 Overview (05/25/2019): Does not drink alcohol. Opioid use disorder, severe, dependence 06/01/20 16 Overview (05/25/2019): Stable on suboxone for since [address] Xiao at [facility] , fax [phone]. Last relapse 03/2014 Assessment & Plan (10/23/2024 9:50 PM EDT): Stable on suboxone therapy since 2012 Encounter for dietary counseling and surveillanc e 08/08/2015 Exercise counseling 08/08/2015 History of anemia 08/08/2015 Overview (05/25/2019): Denies dark or blood stools. Dyslipidemia 08/08/2015 Overview (08/08/2015): Not on meds Health care maintenance 08/08/2015 Overview (08/08/2015): needs PAP Preventative Health Measures Communication issues identified? no Alcohol Screening Do you drink? no Depression Screening: In the past two weeks, how often have you felt down, depressed, or hopeless? mostly has anxiety. Has episodic depression related to family issues. Denies a history or hopelessness Have you felt little interest or pleasure in doing things? no Fall Risk Screening: Have you had 2 or more falls in the past year or any fall with injuries within the past year? no Tobacco Status - (goals: no tobacco) Does patient currenty use tobacco products? History Smoking status Current Every Day Smoker -- 1.00 packs/day for 5 years Types: Cigarettes Smokeless tobacco Never Used Comment: not every day Ready to quit: No Counseling given: Yes Immunizations - (goals: yearly flu shot, one pneumovax (with booster in 5 years if started before age 65), zostavax 60 and over, Tdap/Tetanus every 10 years) Immunization History Administered Date(s) Administered Influenza Vaccine, Unspecified Formulation 01/07/2012 Tdap 01/07/2012 Health Maintenance Health Maintenance Topic Date Due Annual Wellness Exam 08/23/2011 Cervical Cancer Screening 06/29/2014 Pneumococcal Vaccine (Medium Risk) 19-64 (1 of 1 - PPSV23) 08/13/2016 (Originally 05/18/1995) Influenza Vaccine Completed Patient Care Team: James Silveira MD as PCP - General (Family Medicine) Garcia Villavicencio MD as PCP - OBGarcia Oleary MD as PCP - Pediatrics Garcia Villavicencio MD as PCP - Behavioral Health Josiah Savage MD as PCP - Hematology/Oncology Patient Self Management - Dietary Compliance compliant most of the time Medication Compliance - compliant most of the time Self Management tools - None Self Management ability - fair Willingness to adopt healthy behaviors - fair Understanding of current medications - fair Exercise - none Sissy Ayoub has set the following self management goal: improved diet, increased exercise, quitting smoking, weight control Readiness to change: Sissy Ayoub is not ready to change. Patient Barriers: emotional, none Patient Care Team: James Silveira MD as PCP - General (Family Medicine) Garcia Villavicencio MD as PCP - OBGarcia Oleary MD as PCP - Pediatrics Garcia Villavicencio MD as PCP - Behavioral Health Josiah Savage MD as PCP - Hematology/Oncology Mood disorder 08/08/2015 Overview (05/25/2019): Stable. Denies HSI, AVH, anhedonia, despair. Continue same. Tobacco abuse 07/17/2011 Overview (05/25/2019): Has cut back. Discussed risks and cessation encouraged. Desires to restart Chantix History of positive hepatitis C 06/30/2011 Overview (08/08/2015): Hx IVDU and tatoo's. Negative viral load in 2010. Has not had tx. Essential hypertension 06/30/2011 Overview (12/30/2023): BP Readings from Last 3 Encounters: 12/30/23 138/88 12/21/23 144/78 12/12/23 156/84 03/20/16 HTN: Taking meds. Well controlled. Denies chest pain and SOB, dizziness or orthostatics. Due to swelling stop lotrel and start diovan. Restart HCTZ Assessment & Plan (10/23/2024 9:50 PM EDT): Goal BP: <130/80 BP Readings from Last [...] by mouth daily. Indications: high blood pressure Genital herpes 08/26/2010 Overview (08/08/2015): Not on prophylaxis and is not having any outbreaks Anxiety disorder 03/08/2009 Overview (05/25/2019): Improved on effexor. AR (allergic rhinitis) Resolved Problems Problem Noted Date Diagnosed Date Resolved Date CAP (community acquired pneumonia) 06/13/2024 06/13/2024 Gastric band erosion 07/11/2022 024 Smokers' cough 04/29/2020 10/23/2024 LAP-BAND surgery status 08/11/201802/07 Edema of right lower extremity 07/14/2016 05/25/2019 Elevated d-dimer 07/14/2016 05/25/2019 Obesity, Class I, BMI 30-34.9 08/08/2015 07/18/2022 Overview (05/25/2019): Diet and exercise Wt Readings from Last 3 Encounters: 05/25/19 195 lb 12.8 oz (88.8 kg) 04/26/19 198 lb (89.8 kg) 03/13/19 197 lb (89.4 kg) Liveborn by 01/08/20122015 Advanced maternal age 0507/17/20112015 Overview (11/19/2011): testing at 32 weeks Amnio wnl High-risk supervision 06/30/2011 08/08/2015 Overview (11/19/2011): 1h GCT 122 Vulvitis 08/22/2010 09/04/2010 Fluid retention 03/08/2009 08/08/2015 Encounters Date Type Department Care Team Description 10/21/2024 4:30 PM EDT Office Visit [facility] [address] [place] [address] Faiza Ramirez APRN Essential hypertension (Primary Dx); Visit for screening mammogram; Morbid (severe) obesity due to excess calories (HCC); Opioid use disorder, severe, dependence (HCC) 10/21/2024 Telephone [facility] [address] [place] [phone] James Silveira MD Appointment Needed (Elevated BP ) 09/28/2024 Telephone [facility] [address] [place] [address] James Silveira MD Appointment Needed (/) 09/22/2024 Patient Outreach [facility] [address] [place] [address] James Silveira MD Central Order Completion Outreach (mammo) from Last 3 Months Immunizations Immunization Administration Dates Next Due Influenza Patient Reported 03/16/2013,04/07/2011 Influenza Seasonal Injectable PF 12/30/2023 Influenza Vaccine Quadrivalent 03/20/2016,2006 Influenza Vaccine Quadrivalent PF 11/22/2019 Influenza Vaccine, Unspecified Formulation 01/06 Influenza, Split (Incl. Purified Surface Antigen ) 03/16/2013 Pneumococcal Conjugate Vaccine 20 Valent 024 Pneumococcal Polysaccharide 23 Valent 08/08/2015 ,01/11/2007 Tdap 01/07/2012 Surgical History Surgery Date Site/Laterality Comments LAP BAND OVARIAN CYST REMOVAL lavender in 2006 PELVIC LAPAROSCOPY APPENDECTOMY SECTION 01/06/2012 Abdomen/N/A primary section; Surgeon: Matt Ames MD; Location: [facility]; Service: Gynecology COLONOSCOPY 06/07/2022 - 07/06/2022 UPPER GASTROINTESTINAL ENDOSCOPY 06/07/2022 - 07/06/2022 GASTRIC BYPASS SURGERY 07/11/2022 N/A Laparoscopic gastric band removal; Surgeon: Rafiq Ochoa MD; Location: [facility]; Service: General Medical History Medical History Date Comments Substance abuse (HCC) HTN (hypertension) Depression Anxiety AR (allergic rhinitis) DDD (degenerative disc disease) 03/08/2009 Weight gain 07/11/2010 Herpes simplex without menti on of complication genital on valtrex Iron deficiency anemia 07/14/2016 Gastroesophageal reflux dise ase without esophagitis 07/08/2022 Encounter for blood transfusion 06/2022 came to hospital with low blood count Liver disease CAP (community acquired pneumonia) 06/13/2024 Family History Medical History Relation Name Comments Diabetes Brother 2 Diabetes Mother Hypertension Mother Bleeding Prob Other niece von willenbran ds Diabetes Sister 1 Hypertension Sister 1 Anesth Problems Neg Hx Relation Name Status Comments Brother 1 Alive Brother 2 Father Mother Alive Other niece Alive Sister 1 Alive Sister 2 Alive Social History Tobacco Use Types Packs/Day Years Used Date Smoking Tobacco: Some Days Cigarettes 0.3 16.8 Started: 2005; Last attempted to quit: 01/2022 Smokeless Tobacco: Never Tobacco Cessation:Ready to Q uit: Not Asked; Counseling Given: Not Answered Comments:not every day Alcohol Use Standard Drinks/Week Comments No 0 (1 standard drink = 0.6 oz pur e alcohol) Overall Financial Resource Strain (CARDIA) Answe r Date Recorded How hard is it for you to pa y for the very basics like food, housing, medical care, and heating? Very hard 12/18/2023 PHQ-2 Answer Date Recorded PHQ-2 Total Score 0 10/21/2024 [facility] [place] of Occupat ional Health - Occupational Stress [...] any time in the past 12 m [facility], were you homeless or living in a senior care (including now)? Yes 12/18/2023 Sexually Active Control Partners Comments Not Currently Condom Male Comments No Sex and Gender Information Value Date Recorded Sex Assigned at Not on file Legal Sex Female 2:43 PM EDT Gender Identity Not on file Sexual Orientation Not on file Obstetrics History Para Term AB IAB SAB Ectopic Multiple Livin g Live Births 3 3 1 3 1 Date Outcome GA Total Labor Labor/2nd/3rd Weight Sex Type Anes PTL Ale A1 A5 Name Clin Para Para 012 Term 39w 3d 6 lb 5 oz (2.863 kg) F Epidur al N Livin g 9 9 WORKM AN,AM Y BABY A Alla Aquino MD Delivery Location:[facility] Last Filed Vital Signs Vital Sign Reading [...] Mass Index 42.42 10/21/2024 2:12 PM EDT Plan of Treatment Health Maintenance Due Date Last Done Comments Wellness Exam Medicare 05/18/1979 Hepatitis B Vaccine (1 of 3 - 19+ 3-dose series) 05/18/1995 HPV/Pap Cotest 2006 Cervical Cancer Screening 06/29/2014 Pap Smear 06/29/2014 06/30/2011, 08/07, 04/09/2009 Breast Cancer Screening 2016 01/01/2005 Cologuard 2021 Colon Cancer Screening 2021 Colonoscopy 2021 FIT 2021 Sigmoidoscopy 2021 Virtual Colonography 2021 DTaP/TDaP/Td (7 - Td or Tdap) 01/06/2022 01/07/2012, 07/31/1992, 02/18/1982, Additional history exists COVID-19 Vaccine (2023- season) 2024 Influenza Vaccine (#1) 2024 , 11/22/2019, 01/05/2017 (Declined), Additional history exists Pneumococcal Vaccine 0-49 Completed 2023, 08/08/2015, 01/11/2007 Meningococcal B Vaccine Aged Out No l onger eligible based on patient's age to complete this topic Goals Goal Patient Goal Type Associated Problems Recent Progress Patient-Stated? Author Blood Pressure < 140/90 Blood Pressure 156/83(2024 2:12 PM EDT) No Laura Brooke, RMA Maintain a healthy diet, exercise regularly and maintain an ideal body weight General No Faiza Mccollum CCMA Stay Tobacco Free Lifestyle No Faiza Mccollum CCMA Medical Devices Implanted Type Area Architecture Technician Device Identifier Shelf Expiration Date Model / Serial / Lot Lap Band-03/09/2008 Implanted:03/09 (Quantity not on file) Abdomen Procedures Procedure Name Priority Date/Time Associated Diagnosis Comments ASTRONAUT MISSION SPECIALIST CYTOLOGY REPORT Routine 06/30/2011 4 :24 AM EDT WW BREAST SONOGRAM Routine 01/01/2005 2: 00 PM EDT from Last 3 Months or Most Recently Relevant to Health Maintenance Results * ASTRONAUT MISSION SPECIALIST CYTOLOGY REPORT (06/30/2011 4:24 AM EDT) Brewery Cellar Worker Cytology Report PATIENT NAME:SISSY AYOUB Brewery Cellar Worker Cytology Report Accession Number Collected Date/Time Received Date/Time [id number] 06/30/11 04:24 EDT 07/01/11 04:24 EDT GY Specimen Source Specimen Vag/Cerv/Endocx?: Cervical/Endocervi gordon Statement of Adequacy Satisfactory for Evaluation. Transformation Zone Present. Diagnosis NEGATIVE FOR INTRAEPITHELIAL LESION OR MALIGNANCY. Comment The Pap Smear is a screening test that aids in the detection of cervical cancer and cancer precursors. Both false positive and false negative results can occur. The test should be used at regular intervals, and positive results should be confirmed before definitive therapy. Processed using the vogogop Cafe Manager automated cytology screening device ([employer]). Gauge Machine Operator: MARGARITO 07/02/2011 Completed by: KYA Leonardo (Electronically signed by) 07/02/2011 [facility] Laboratory [facility] 06/30/2011 4:24 AM EDT Keisha Jacobson [facility] PATHOLOGY ORDERABLES Final Result Performing Organization Address City/State/[facility] Co de Phone Number [facility] [address] [place] [address] * MM BREAST SONOGRAM (01/01/2005 2:00 PM EDT) Anatomical Region Laterality Modality Other 01/01/2005 2:00 PM EDT Narrative 01/02/2005 9:23 AM EDT Procedure-WW BREAST SONOGRAM Breast Ultrasound RIGHT BREAST ULTRASOUND, 01-01-05. In the region of palpable abnormality at the 9 o'clock position of the right breast near the nipple there is an ill-defined hypoechoic solid area in the dermis that measures 11.8 x 10.4 cms. 2. The underlying breast tissue appears normal. Because this abnormality was present in the skin, a mammogram was not performed. IMPRESSION- No radiographic evidence of malignancy ([id number]) The patient's palpable abnormality is in the skin not the berast. Further evaluation of a skin lesion should be made on clinical grounds. RECOMMENDATION- Routine screening mammogram at age 40. Manage patient on clinical grounds. * The patient with a palpable abnormality, unexplained by breast imaging, should be managed on clinical basis by the attending physician. * Breast imaging has a false negative rate of 15%. * The patient was notified by mail of the results of this examination. Blade Chaney Radiologist- COLE FAJARDO MD Released Date Time- 01/02/05922 Procedure Note Cole Fajardo R - 05/15/2009 Procedure-WW BREAST SONOGRAM Breast Ultrasound RIGHT BREAST ULTRASOUND, 01-01-05. In the region of palpable abnormality at the 9 o'clock position of the right breast near the nipple there is an ill-defined hypoechoic solid area in the dermis that measures 11.8 x 10.4 cms. 2. The underlying breast tissue appears normal. Because this abnormality was present in the skin, a mammogram was not performed. IMPRESSION- No radiographic evidence of malignancy ([id number]) The patient's palpable abnormality is in the skin not the berast. Further evaluation of a skin lesion should be made on clinical grounds. RECOMMENDATION- Routine screening mammogram at age 41. Manage patient on clinical grounds. * The patient with a palpable abnormality, unexplained by breast imaging, should be managed on clinical basis by the attending physician. * Breast imaging has a false negative rate of 15%. * The patient was notified by mail of the results of this examination. 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 07/20/2023 Insurance HU[employer]NA MEDICARE HMO [place] [employer] Advance Directives For more information, please contact: [phone] * Full Code (Latest Code Status on File) Date Activated Date Inactivated Comments 07/11/2022 4:14 PM 07/12/2022 9:29 PM * Full Code Date Activated Date Inactivated Comments 01/05/2012 7:28 PM 01/08/2012 8:00 PM Care Teams Gas Inspector Relationship Specialty Start Date End Date Garcia Villavicencio MD [address] [place] [address] PCP - OBGYN 07/24/09 Garcia Villavicencio MD [address] [place] [address] PCP - Pediatrics 07/24/09 Garcia Villavicencio MD [address] [place] [address] PCP - Behavioral Health 07/24/09 Josiah Savage MD PCP - Hematology/Oncology 07/31/09 James Sil[place] [address] [place] [address] PCP - General Family Medicine 08/08/15
--- OUTSIDE RECORDS SUMMARY | 2024-11-11 08:39 | XMS_ITS | Clinical Summary ---
Author Organization [facility] Address [address] [place] [address], [address] [place] [address] Care Team Providers Care Scullion Chief Name Role Phone Tierney Álvarez MD Primary Care Provider Allergies No known active allergies Medications SUBOXONE 8-2 MG FILM 12/09/2013 Active fluconazole (DIFLUCAN) 150 MG tablet 11/24/2013 Active amoxicillin (AMOXIL) 875 MG tablet 11/14/2013 Active amoxicillin (AMOXIL) 500 MG capsule 09/19/2013 Active chlorhexidine (PERIDEX) 0.12 % solution 11/14/2013 Active HYDROcodone-tay taminophen (NORCO) 7.5-325 MG per tablet 0 09/23/2013 Activ e omeprazole (PRILOSEC) 40 MG capsule Take 1 capsule by mouth daily for 30 days. 30 capsule 2 12/26/2013 Active Active Problems No known active problems Social History Tobacco Use Types Packs/Day Years Used Date Smoking Tobacco: Every Day Tobacco Cessation:Counseling Given: Yes Alcohol Use Standard Drinks/Week Comments Not Asked 0 (1 standard drink = 0.6 oz pur e alcohol) Comments Unknown Sex and Gender Information Value Date Recorded Sex Assigned at Not on file Legal Sex Female 11:24 PM EST Gender Identity Not on file Sexual Orientation Not on file Last Filed Vital Signs Vital Sign Reading Time Taken Comments Blood Pressure 118/70 12/26/2013 11:35 AM EDT Pulse - - Temperature - - Respiratory Rate - - Oxygen Saturation - - Inhaled Oxygen Concentration - - Weight 94.8 kg (209 lb) 12/26/2013 11:35 AM EDT Height 162.6 cm (5' 4 ) 12/26/2013 11:35 AM EDT Body Mass Index 35.87 12/26/2013 11:35 AM EDT Plan of Treatment Not on file Advance Directives Documents on File Type Date Recorded Patient Wardrobe Mistress Expl anation ACP-Advance Directive 08/29/2012 6:57 AM ACP-Advance Directive 07/18/2010 3:26 PM Care Teams Scullion Chief Relationship Specialty Start Date End Date Tierney Álvarez MD PCP - General 06/07/11
--- OUTSIDE RECORDS SUMMARY | 2024-11-11 08:39 | XMS_ITS | Encounter Summary ---
Author Organization [facility] Address [address] [place] [address] Care Team Providers Care Senior Interaction Designer Name Role Phone Ricky Zelaya MD Primary Care Provider [phone] None, None Primary Care Provider Unavailabl e Reason for Visit * Reason Comments Medications Refill Encounter Details Date Type Department Care Team (Late st Contact Info) Description 07/16/2011 Refill [facility] - Primary Care, [place] [address] [place] [address] [place] [address] Medications Refill Social History Tobacco Use Types [...] on filedocumented in this encounter Care Teams Senior Interaction Designer Relationship Specialty Start Date End Date Ricky Zelaya MD PCP - General Family Medicine 06/18/11 01/02/15 None, None [address] [place] [address] PCP - General 01/03/15 documented as of this encounter
== END 2024-11-09 23:59 | disposition home or self-care (01) ==
LOC: LAB.DROPOF 11-11 08:18
PROVIDERS: PCP Nurse Practitioner; Visit Provider Nurse Practitioner
DX: Z11.59 Encounter for screening for other viral diseases (principal); E11.9 Type 2 diabetes mellitus without complications; E55.9 Vitamin D deficiency, unspecified; E66.01 Morbid (severe) obesity due to excess calories; E53.8 Deficiency of other specified B group vitamins; Z68.36 Body mass index [BMI] 36.0-36.9, adult
CPT/HCPCS: 80053; 80061; 82043; 82306; 82570; 82607; 83036; 84443; 85025; 86803; 87389; 87522

== ENCOUNTER 2024-12-07 13:17 | Emergency (ER) | payer MEDICARE, MEDICAID, SELFPAY ==
--- OUTSIDE RECORDS SUMMARY | 2024-12-05 08:28 | XMS_ITS | Encounter Summary ---
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 Unknown 12/05/2024 11:18 AM EDT 12/05/2024 11:26 AM EDT us Ross Bunn SUPERVISOR TUBING CHEMISTRY ORDERABLES Final Result [facility] [employer] [address] [facility] , [place] [address] * (ABNORMAL) CBC WITH DIFF (12/05/2024 11:10 AM EDT) WBC 9.5 3.7 - 10.3 x10(3)/mcL 12/05/2024 11:20 AM EDT [facility] RBC 5.33(H) 3.90 - 5.20 x10(6)/mcL 12/05/2024 11:20 AM EDT [facility] Hgb 10.7(L) 11.2 - 15.7 g/dL 12/05/2024 11:20 AM EDT [facility] Hct 36.4 34.0 - 45.0 % 12/05/2024 11:20 AM EDT [facility] MCV 68.3(L) 80.0 - 100.0 fL 12/05/2024 11:20 AM EDT [facility] MCH 20.1(L) 26.0 - 34.0 pg 12/05/2024 11:20 AM EDT [facility] MCHC 29.4(L) 30.7 - 35.5 g/dL 12/05/2024 11:20 AM EDT [facility] RDW 18.6(H) <=14.9 % 12/05/2024 11:20 AM EDT [facility] Platelet 178 155 - 369 x10(3)/mcL 12/05/2024 11:20 AM EDT [facility] MPV 9.8 8.8 - 12.5 fL 12/05/2024 11:20 AM EDT [facility] Neut Percent 68.8 % 12/05/2024 11:20 AM EDT [facility] Comment:Neutrophils equals s egs plus bands Imm Gran% 0.2 % 12/05/2024 11:20 AM EDT [facility] Comment:Automated count of m etamyelocytes, myelocytes and promyelocytes. Lymph Percent 18.7 % 12/05/2024 11:20 AM EDT [facility] Cecil Percent 7.9 % 12/05/2024 11:20 AM EDT [facility] Eos Percent 4.0 % 12/05/2024 11:20 AM EDT [facility] Baso Percent 0.4 % 12/05/2024 11:20 AM EDT [facility] Neut # 6.5(H) 1.6 - 6.1 x10(3)/[facility] 12/05/2024 11:20 AM EDT [facility] Comment:Neutrophils equals s egs plus bands IMMGRAN# 0.0 0.0 - 0.1 x10(3)/[facility] 12/05/2024 11:20 AM EDT [facility] Comment:Automated count of m etamyelocytes, myelocytes and promyelocytes. An absolute IG <0.1 is reported as 0.0. Lymph # 1.8 1.2 - 3.9 x10(3)/[facility] 12/05/2024 11:20 AM EDT [facility] Cecil # 0.8 0.3 - 0.9 x10(3)/[facility] 12/05/2024 11:20 AM EDT [facility] Eos# 0.4 0.0 - 0.5 x10(3)/[facility] 12/05/2024 11:20 AM EDT [facility] Baso # 0.0 0.0 - 0.1 x10(3)/[facility] 12/05/2024 11:20 AM EDT [facility] Blood VENOUS BLOOD / Unknown Venipuncture / Unknown 12/05/2024 11:10 AM EDT 12/05/2024 11:14 AM EDT us Ross Bunn SUPERVISOR TUBING HEMATOLOGY ORDERABLES Joy l Result [facility] [address] [place] [address] * HEPATITIS B SURFACE ANTIGEN (12/05/2024 10:24 AM EDT) Hep Bs Ag Non-Reacti ve Non-React marcos 12/05/2024 12:41 PM EDT [facility] [employer] Comment:HBsAg not detected. Does not exclude possibility of exposure to HBV. Blood VENOUS BLOOD / Unknown Venipuncture / Unknown 12/05/2024 10:24 AM EDT 12/05/2024 10:[address] [facility] - 12/05/2024 12:41 PM EDT Test performed using [employer] electrochemiluminescence immunassay (ECLIA). Ross Bunn APRN CHEMISTRY ORDERABLES Final Result Performing Organization Address [facility] de Phone Number [facility] [employer] [address] , [place] [address] * HIV AG/AB (12/05/2024 10:24 AM EDT) [facility] HIV Ag/AB Non-Reacti ve Non-Reacti ve 12/05/2024 12:[address] [facility] Comment:Negative for HIV-1 a ntigen and anti-HIV-1/anti-HIV-2 antibodies. Blood VENOUS BLOOD / Unknown Venipuncture / Unknown 12/05/2024 10:24 AM EDT 12/05/2024 10:[address] [facility] - 12/05/2024 12:41 PM EDT Test performed using [employer] electrochemiluminescence immunassay (ECLIA). Ross Bunn APRN IMMUNOLOGY ORDERABLES Joy l Result Performing Organization Address [facility] de Phone Number [facility] [employer] [address] [place] [address] , [address] [place] [id number] * PROCALCITONIN (12/05/2024 10:24 AM EDT) Pathologist [facility] Procalcitonin <0.05 <=0.49 ng/mL 12/05/2024 11:[address] [facility] Blood VENOUS BLOOD / Unknown Venipuncture / Unknown 12/05/2024 10:24 AM EDT 12/05/2024 10:[address] [facility] - 12/05/2024 11:36 AM EDT Procalcitonin <0.50 ng/mL: Procalcitonin levels below 0.50 ng/mL on the first day of ICU admission represent a low risk for progression to severe sepsis and/or septic shock Procalcitonin >=0.50 ng/mL and <=2.00 ng/mL: If the procalcitonin measurement is performed shortly after the systemic infection process has started (usually less than 6 hours), this value may still be low. As various non-infectious conditions are known to induce procalcitonin as well, procalcitonin levels between 0.50 ng/mL and 2.00 ng/mL should be reviewed carefully to take into account the specific clinical background and condition(s) of the patient. Procalcitonin >2.00 ng/mL: Procalcitonin levels above 2.00 ng/mL on the first day of ICU admission represent a high risk for progression to severe sepsis and/or septic shock. us Ross Bunn APRN CHEMISTRY ORDERABLES Final Result Performing Organization Address City/[facility]/ZIP Co de Phone Number [facility] [employer] [address] [place] [address], [place] [address] * LACTIC ACID (12/05/2024 10:24 AM EDT) [facility] Lactic Acid 1.2 0.5 - 1.9 mmol/L 12/05/2024 11:08 AM EDT [facility] Blood VENOUS BLOOD / Unknown Venipuncture / Unknown 12/05/2024 10:24 AM EDT 12/05/2024 10:31 AM EDT Ross Bunn SUPERVISOR TUBING CHEMISTRY ORDERABLES Final Result Performing Organization Address City/[facility]/ZIP Co de Phone Number [address] [address] * (ABNORMAL) TROPONIN-T HIGH SENSITIVITY BASELINE W/ REFLEX (12/05/2024 10:24 AM EDT) [facility] [id number] 18(H) <14 ng/L 12/05/2024 10:53 AM EDT [facility] Blood VENOUS BLOOD / Unknown Venipuncture / Unknown 12/05/2024 10:24 AM EDT 12/05/2024 10:31 AM EDT Narrative [facility] - 12/05/2024 10:53 AM EDT Ingestion of esme doses of biotin (>5 mg/day) taken within 8 hours of drawing blood sample can interfere with this immunoassay test. Ross Bunn SUPERVISOR TUBING CHEMISTRY ORDERABLES Final Result Performing Organization Address [facility]/ZIP Co de Phone Number [facility] [address] [place], [place] [id number] * (ABNORMAL) NT PROBNP (12/05/2024 10:24 AM EDT) NT Pro-BNP 597(H) <=192 pg/mL 12/05/2024 10:53 AM EDT [facility] Blood VENOUS BLOOD / Unknown Venipuncture / Unknown 12/05/2024 10:24 AM EDT 12/05/2024 10:31 AM EDT Narrative [facility] - 12/05/2024 10:53 AM EDT An NT pro-BNP level less than 300 pg/mL in any patient, regardless of age, effectively rules out acute CHF with a 99% negative predictive value. Ingestion of esme doses of biotin (>5 mg/day) taken within 8 hours of drawing blood sample can interfere with this immunoassay test. Ross Bunn SUPERVISOR TUBING CHEMISTRY ORDERABLES Final Result Performing Organization Address [facility]/ZIP Co de Phone Number [facility] [address] [place], [place] [id number] * (ABNORMAL) COMPREHENSIVE METABOLIC PANEL (12/05/2024 10:24 AM EDT) Sodium 132(L) 136 - 145 mmol/L 12/05/2024 10:50 AM EDT [facility] Potassium 3.8 3.5 - 5.0 mmol/L 12/05/2024 10:[facility] Chloride 96(L) 98 - 107 mmol/L 12/05/2024 10:50 AM [facility] Total CO2 22 22 - 29 mmol/L 12/05/2024 10:50 AM [facility] Anion Gap 14 7 - 16 mmol/L 12/05/2024 10:50 AM [facility] Calcium 8.9 8.6 - 10.4 mg/dL 12/05/2024 10:50 AM [facility] Glucose Lvl 130(H) 70 - 99 mg/dL 12/05/2024 10:50 AM [facility] BUN 9 6 - 20 mg/dL 12/05/2024 10:50 AM [facility] Creatinine 0.52 0.51 - 1.30 mg/dL 12/05/2024 10:50 AM [facility] Albumin 3.9 3.5 - 5.2 gm/dL 12/05/2024 10:50 AM [facility] Total Protein 7.0 6.4 - 8.3 gm/dL 12/05/2024 10:50 AM [facility] Bili Total 0.4 0.2 - 1.3 mg/dL 12/05/2024 10:50 AM [facility] ALT 12 <=41 U/L 12/05/2024 10:50 AM [facility] AST 18 <=40 U/L 12/05/2024 10:50 AM [facility] Alk Phos 155(H) 36 - 123 U/L 12/05/2024 10:50 AM [facility] eGFR (CKD-EPIcr 2020) 114 >=60 mL/min/1.7 3 m2 12/05/2024 10:50 AM [facility] Comment:Estimated GFR was ca lculated using the CKD-EPIcr (2020) equation refit without race. The equation is recommended by the National Kidney Foundation - [place] [employer] of Nephrology Task Force. Blood VENOUS BLOOD / Unknown Venipuncture / Unknown 12/05/2024 10:24 AM EDT 12/05/2024 10:31 AM EDT Ross Bunn SUPERVISOR TUBING CHEMISTRY ORDERABLES Final Result [facility] [address] [place] [id number] * XR CHEST AP PORTABLE (12/05/2024 9:25 AM EDT) Anatomical Region Laterality Modality Chest Radiographic Maren ging 12/05/2024 9:25 AM EDT Impressions 12/05/2024 10:20 AM EDT 1. No acute finding. - Note: Radiology results need to be interpreted within a comprehensive clinical context. If you have questions about the radiology report, please contact the office of the ordering clinician. Narrative 12/05/2024 10:20 AM EDT XR CHEST AP PORTABLE: 12/05/2024 9:25 AM CLINICAL HISTORY: -dyspnea COMPARISON: None. PROCEDURE COMMENTS: AP portable technique. FINDINGS: Heart size is upper limits normal. Mediastinal and hilar structures are normal lungs are clear. Right hemidiaphragm is mildly elevated compared to the left. Procedure Note Adelaide Garcia MD - 12/05/2024 XR CHEST AP PORTABLE: 12/05/2024 9:25 AM CLINICAL HISTORY: -dyspnea COMPARISON: None. PROCEDURE COMMENTS: AP portable technique. FINDINGS: Heart size is upper limits normal. Mediastinal and hilar structures arenormal lungs are clear. Right hemidiaphragm is mildly elevated compared to theleft. IMPRESSION: 1. No acute finding. - Note: Radiology results need to be interpreted within a comprehensiveclinical context. If you have questions about the radiology report, please contactthe office of the ordering clinician. Ross Bunn APRN IMG DIAGNOSTIC IMAGING ORD ERABLES Final Result * EK EKG 12 LEAD (12/05/2024 8:13 AM EDT) Anatomical Region Laterality Modality Electrocardiogra phy 12/05/2024 8:21 AM EDT Impressions 12/05/2024 10:[address] [facility] Test Date: 2024-12-05 Pat Name: SISSY AYOUB Department: DEPID Room: Gender: Female Fish Smoker: Sw9 : 1975 Requested By: [facility] Order Number: [id number] Reading : Harley Shaw Measurements Intervals Robins Rate: 105 P: -3 ME: 132 QRS: 1 QRSD: 90 T: 19 QT: 332 QTc: 440 Interpretive Statements SINUS TACHYCARDIA MODERATE VOLTAGE CRITERIA FOR LVH, CONSIDER NORMAL VARIANT NONSPECIFIC T-WAVE ABNORMALITY ABNORMAL RHYTHM ECG Electronically Signed On 12-05-2024 10:15:17 EDT by Harley Shaw Narrative Procedure Note Harley Shaw MD - 12/05/[address] [facility] Test Date: 2024-12-05 Pat Name: SISSY AYOUB Department: DEPID Room: Gender: Female Fish Smoker: Sw9 : 1975 Requested By: [facility] Order Number: [id number] Reading : Harley Shaw Measurements Intervals [place]ins Rate: 105 P: -3 ME: 132 QRS: 1 QRSD: 90 T: 19 QT: 332 QTc: 440 Interpretive Statements SINUS TACHYCARDIA MODERATE VOLTAGE CRITERIA FOR LVH, CONSIDER NORMAL VARIANT NONSPECIFIC T-WAVE ABNORMALITY ABNORMAL RHYTHM ECG Electronically Signed On 12-05-2024 10:15:17 EDT by Harley Shaw Rosalino Toledo MD IMG ECG ORDERABLES Final Resul t documented in this encounter Visit Diagnoses Diagnosis Left leg cellulitis- Primary Cellulitis and abscess of leg, except foot Chest pain, unspecified type Elevated brain natriuretic peptide (BNP) level Other nonspecific findings on examination of blood documented in this encounter Administered Medications Inactive Administered Medications - up to 1 most recent administrations Medication Order MAR Action Action Date Dose Rate Site sodium chloride 0.9% IV line flush 50 mL 50 mL, Intravenous, at 999 mL/hr, PRN, Starting on Thu12/05/24 at 0849, Until Thu12/05/24 at 2249, Line Care, Flush with 50 mL after IVPB to insure complete administration of the dose. May use the saline infusion to back flush IVPB tubing as needed., Use this order to document priming and flushing IV line after medication administration. sodium chloride 0.9% syringe 5-10 mL 5-10 mL, Intravenous, PRN, Starting on Thu12/05/24 at 0849, Until Thu12/05/24 at 2249, Line Care, Flush with 5 mL saline pre/post IVP, and 5 mL prior to IVPB or blood product administration. Protocol for PERIPHERAL IV saline lock maintenance, flush with 3-5 mL saline syringe every 8 hours., Flush peripheral lines every 12 hours, central lines every 8 hours, and after IV medication documented in this encounter Active and Recently Administered Medications Times are shown in EDT. PRN Medication Order 12/03/2024 12/04/2024 12/05/2024 sodium chloride 0.9% IV line flush 50 mL 50 mL, Intravenous, at 999 mL/hr, PRN, Starting on Thu12/05/24 at 0849, Until Thu12/05/24 at 2249, Line Care, Flush with 50 mL after IVPB to insure complete administration of the dose. May use the saline infusion to back flush IVPB tubing as needed., Use this order to document priming and flushing IV line after medication administration. sodium chloride 0.9% syringe 5-10 mL 5-10 mL, Intravenous, PRN, Starting on Thu12/05/24 at 0849, Until Thu12/05/24 at 2249, Line Care, Flush with 5 mL saline pre/post IVP, and 5 mL prior to IVPB or blood product administration. Protocol for PERIPHERAL IV saline lock maintenance, flush with 3-5 mL saline syringe every 8 hours., Flush peripheral lines every 12 hours, central lines every 8 hours, and after IV medication documented in this encounter Orders Medications Ordered That Fei ht Not Have Been Administered Count Last Ordered Date First Ordered Date sodium chloride 0.9% IV line flush 50 mL 1 12/05/2024 sodium chloride 0.9% syringe 5-10 mL 1 11/08 Nursing Count Last Ordered Date First Orde red Date CARDIAC MONITORING 1 12/05/2024 PULSE OXIMETRY - NURSING 1 12/05/2024 IV Count Last Ordered Date First Orde red Date SALINE LOCK IV 1 12/05/2024 documented in this encounter Additional Health Concerns Infection Onset Date Last Indicated Resolved Time 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
[2024-12-07 13:22] VITALS: BP 163/68; PULSE 100; RESP 18; TEMP 36.9; O2SAT 97; BMI 44.2
--- NOTE | 2024-12-07 13:32 | PC.NURSE ---
Addendum entered by Camille Rivas RN 12/07/24 15:31: patient offered chair room she chose to wait for a room to open, placed in evan Original Note: todetn offered chair room she chose to wait for a room to open, placed in evan
--- OUTSIDE RECORDS SUMMARY | 2024-12-07 14:24 | XMS_ITS | Clinical Summary ---
Author Organization [employer] [facility] C are Address [address] [place] [phone] Phone Care Team Providers Care Complex Care Nurse Practitioner Name Role Phone Unavailable Unavailable Conditions or Problems No information available. Medications No information available. Medications Administered No information available. Allergies, Adverse Reactions, Alerts No information available. Results No information available. Plan of Care No information available. Procedures No information available. Vital Signs No information available. Immunizations No information available. Advance Directives No information available.
--- OUTSIDE RECORDS SUMMARY | 2024-12-07 14:26 | XMS_ITS | Encounter Summary ---
Author Organization [facility] Address [address] [place] [address] Care Team Providers Care Conservation Educator Name Role Phone Ricky Zelaya MD Primary Care Provider [phone] None, None Primary Care Provider Unavailabl e Reason for Visit * Reason Comments Medications Refill Encounter Details Date Type Department Care Team (Late st Contact Info) Description 06/10/[address] [facility] Physicians - Primary Care, [place] [address] [place] [address] [place] [address] Medications Refill Social History Tobacco Use Types [...] on filedocumented in this encounter Care Teams Conservation Educator Relationship Specialty Start Date End Date Ricky Zelaya MD PCP - General Family Medicine 06/18/11 01/02/15 None, None [address] [place] [address] PCP - General 01/03/15 documented as of this encounter
--- OUTSIDE RECORDS SUMMARY | 2024-12-07 14:26 | XMS_ITS | Encounter Summary ---
Author Organization [facility] Address [address] [place] [address] Care Team Providers Care Margin Clerk Name Role Phone Ricky Zelaya MD Primary Care Provider [phone] None, None Primary Care Provider Unavailabl e Reason for Visit * Reason Comments Medications Refill Encounter Details Date Type Department Care Team (Late st Contact Info) Description 06/10/2013 Refill [facility] Physicians - Primary Care, [place] [address] [place] [address] [place] [address] Medications Refill Social History Tobacco Use Types [...] on filedocumented in this encounter Care Teams Margin Clerk Relationship Specialty Start Date End Date Ricky Zelaya MD PCP - General Family Medicine 06/18/11 01/02/15 None, None [address] [place] [address] PCP - General 01/03/15 documented as of this encounter
--- OUTSIDE RECORDS SUMMARY | 2024-12-07 14:28 | XMS_ITS | Clinical Summary ---
Author Organization [facility] Address [address] [place] [address] Care Team Providers Care Tailor Men'S Ready To [employer]ear Name Role Phone None, None Primary Care [...] Film Sublingual DAILY,Gets from Suboxone clinic in [place], Reported on 12/07/2014 tiZANidine (ZANAFLEX) 4 mg [...] MEDICARE MEDICAID [place] HUMANA MEDICARE Care Teams Tailor [employer] Relationship Specialty Start Date End Date None, None [address] [place] [address] PCP - General 01/03/15
--- OUTSIDE RECORDS SUMMARY | 2024-12-07 14:28 | XMS_ITS | Encounter Summary ---
Author Organization [place] [address] Care Team Providers Care Staff Technologist Name Role Phone Garcia Villavicencio MD Unavailable [phone] Garcia Villavicencio MD Unavailable [phone] Garcia Villavicencio MD Unavailable [phone] Josiah Savage MD Unavailable Unavailable James Silveira MD Primary Care Provider [phone] Reason for Visit * Reason Onset Date Comments Appointment Needed 10/21/2024 Elevated BP Encounter Details Date Type Department Care Team (Late st Contact Info) Description 10/21/2024 Telephone [facility] [employer] [facility] [place] [address] James Silveira MD [employer] [facility] [place] [address] Appointment Needed (Elevated BP ) Social [...] Date Recorded PHQ-2 Total Score 0 10/21/2024 [facility] [place] of Occupat ional Health - Occupational Stress [...] any time in the past 12 m [facility], were you homeless or living in a [facility] (including now)? Yes 12/18/2023 Sexually Active Control [...] No 05/25/2019 2:54 PM EDT Watson Barry, HALF BACKER * PHQ-9 Total Score Answer Date of [...] Author 0 10/21/2024 2:15 PM EDT Juani Elliott RMA * Suicide Severity Rating Answer Date of Assessment Author No Risk 12/05/2024 8:36 AM EDT Kosta Kingsley RN * [place] Suicide Severity Rating Scale (Q shift for moderate and high) Question Answer Date of Assessment Author 1. In the past month, have y ou wished you were or wished you could go to sleep and not wake up? 0 12/05/2024 8:[address] Ildefonso wagner RN 2. In the past month, have [...] Detailed Reason for Appt: Elevated BP per [employer] message sent on 10/20. Pt was not transferred to nurse triage related to out of perimeter BP as reading was noted yesterday, and not today. Requested Timeframe: Today Reason Scheduling Assistance is Needed: [id number] Scheduling Kiersten Atkins. Return Method of Communication: [...] 164/77(2024 9:30 AM EDT) No Laura Brooke RMA Maintain a [...] documented as of this encounter Care Teams Staff Technologist Relationship Specialty Start Date End Date Garcia Villavicencio MD [address] [place] [address] PCP - OBGYN 07/24/09 Garcia Villavicencio MD [address] [place] [address] PCP - Pediatrics 07/24/09 Garcia Villavicencio MD [address] [place] [address] PCP - Behavioral Health 07/24/09 Josiah Savage MD PCP - Hematology/Oncology 07/31/09 James Sil[place]ira [place] [address] [address] [place] [address] PCP - General Family Medicine 08/08/15 documented as of this encounter
--- OUTSIDE RECORDS SUMMARY | 2024-12-07 14:28 | XMS_ITS | Clinical Summary ---
Author Organization [facility] Address [facility] [place] [address] Care Team Providers Care Second Rigger Name Role Phone Unavailable Primary Care Provider [...]
--- OUTSIDE RECORDS SUMMARY | 2024-12-07 14:28 | XMS_ITS | Clinical Summary ---
Author Organization [facility] Address [address] [place] [address] Care Team Providers Care Director Food Safety Name Role Phone Unknown, Attending Provider Primary [...] therelease of HIV test results or diagnoses. [id number] Allergies No known active allergies Medications [...] of Treatment Not on file Insurance MEDICAID [place] HUMANA CHOICE O MEDICARE Care Teams Director Food Safety Relationship Specialty Start Date End Date Unknown, Attending Provider PCP - General 07/11/12
--- OUTSIDE RECORDS SUMMARY | 2024-12-07 14:29 | XMS_ITS | Clinical Summary ---
Author Organization [facility] Address [address] [place] [address] Phone Care Team Providers Care Commercial Driver Name Role Phone Garcia Villavicencio MD Unavailable [phone] Garcia Villavicencio MD Unavailable [phone] Garcia Villavicencio MD Unavailable [phone] Josiah Savage MD Unavailable Unavailable James [...] 4 HOURS NEEDED FOR WHEEZE 18 Inhaler 9 Active Additional Information Patient not taking.Reported on 06/13/2024 meclizine (ANTIVERT) 12.5 mg Oral TabletIndication s:Tinnitus of both ears Take 1-2 Tabs by mouth 3 times daily as needed. 45 Tab 9 Active pseudoephedrine (SUDAFED) 30 mg Oral TabletIndication s:Dizziness,Flui d level behind tympanic membrane of both ears 1-2 tabs every 4-6 hours for congestion 48 Tab 9 Active Additional Information Patient not taking.Reported on 06/13/2024 fluticasone propionate (FLONASE) 50 mcg/actuation Nasl Flanagan, SuspensionIndica tions:Chronic sinusitis, unspecified location 1 Flanagan by Nasal route daily. 1 Bottle 2 1 Active clonazePAM (KLONOPIN) 1 mg Oral Tablet 3 Active sertraline (ZOLOFT) 50 mg Oral Tablet TAKE 1 TABLET EVERY DAY 30 Tablet 3 Active Additional Information Patient not taking.Reported on 06/13/2024 IBU 600 mg Oral TabletIndication s:Acute bacterial sinusitis TAKE 1 TABLET EVERY 6 HOURS. CAN TAKE IF NEEDED FOR PAIN OR FEVER 120 Tablet 3 3 Active buprenorphine-na loxone (SUBOXONE) 8-2 mg SL Film 4 Active nalOXone (NARCAN) 4 mg/actuation Nasl Flanagan, Non-Aerosol 3 Active NYSTOP Top Powder APPLY 1 APPLICATION TOPICALLY THREE TIMES DAILY 4 Active ondansetron (ZOFRAN) 4 mg Oral Tablet TAKE 1 TABLET BY MOUTH THREE TIMES A DAY NEEDED FOR NAUSEA AND VOMITING 4 Active fUROsemide (LASIX) 20 mg Oral TabletIndication s:Right leg swelling TAKE 1 TABLET EVERY DAY NEEDED 90 Tablet 3 4 Active tiZANidine (ZANAFLEX) 4 mg Oral Tablet TAKE 1 TABLET THREE TIMES DAILY 270 Tablet 3 4 Active triamcinolone (KENALOG) 0.1 % Top Ointment Apply topically 2 times daily. 80 g 2 4 Active hydroCHLOROthiaz daisy 25 mg Oral TabletIndication s:Essential hypertension Take 1 Tablet by mouth daily. 90 Tablet 3 4 Active polyethylene glycol (GOLYTELY) 236-22.74-6.74 -5.86 gram Oral Recon Soln take as directed by office 1 Each 4 Active benazepriL (LOTENSIN) 40 mg Oral TabletIndication s:hypertension Take 1 Tablet by mouth daily. Indications: high blood pressure 90 Tablet 3 5 Active Active Problems Patient Care Coordination No te [...] (07/08/2022): Added automatically from request for surgery [id number] Gastroesophageal reflux disease without esophagi tis 07/08/2022 Overview (07/08/2022): Added automatically from request for surgery [id number] Full code status 05/25/2019 Living will, counseling/discussion [...] drink alcohol. Opioid use disorder, severe, dependence 08/08/19 16 Overview (05/25/2019): Stable on suboxone for since [address] Xiao at [facility] , fax [phone]. Last relapse 03/2014 Assessment & Plan (10/23/2024 [...] Medicine) Garcia Villavicencio MD as PCP - OBGYN Garcia Villavicencio MD as PCP - Pediatrics Garcia Villavicencio [...] Medicine) Garcia Villavicencio MD as PCP - OBGYN Garcia Villavicencio MD as PCP - Pediatrics Garcia Villavicencio MD as PCP [facility] - Hematology/Oncology Mood disorder [...] Encounters Date Type Department Care Team Description 12/05/2024 8:28 AM EDT - 12/05/2024 5:18 PM EDT Emergency [facility] [place] [address] Rosalino Toledo MD Left leg cellulitis (Primary Dx); Chest pain, unspecified type; Elevated brain natriuretic peptide (BNP) level Discharge Disposition: Left Against Medical Advice 10/21/2024 4:30 PM EDT Office Visit [facility] [place] [address] [place] [phone] Faiza Ramirez APRN Essential hypertension (Primary Dx); Visit for screening mammogram; Morbid (severe) obesity due to excess calories (HCC); Opioid use disorder, severe, dependence (HCC) 10/21/2024 Telephone [facility] [place] [address] [place] [phone] James Silveira MD Appointment Needed (Elevated BP ) 09/28/2024 Telephone [facility] [place] [address] [place] [address] James Silveira MD Appointment Needed (/) 09/22/2024 Patient Outreach [facility] [address] [place] [address] James Silveira MD Central Order [...] band removal; Surgeon: Rafiq Ochoa MD; Location: [facility] MAIN OR; Service: General Medical History Medical [...] Liver disease CAP (community acquired pneumonia) 06/13/2024 Diabetes mellitus (HCC) Family History Medical History Relation Name Comments [...] Date Recorded PHQ-2 Total Score 0 10/21/2024 [facility] [place] of Occupat ional Health - Occupational Stress [...] were you homeless or living in a fdc (including now)? Yes 12/18/2023 Sexually Active Control [...] Y BABY A Alla Aquino MD Delivery Location[facility] Last Filed Vital Signs Vital Sign Reading [...] Mass Index 42.72 12/05/2024 8:39 AM EDT Plan of Treatment Health Maintenance Due [...] 07/31/1992, 02/18/1982, Additional history exists COVID-19 Vaccine ( season) 2024 Influenza Vaccine (#1) 2024 , 11/22/2019, 01/05/2017 (Declined), Additional history exists Pneumococcal Vaccine 0-49 Completed 2023, 08/08/2015, 01/11/2007 Meningococcal B Vaccine Aged Out No l onger eligible based on patient's age to complete this topic Goals Goal Patient Goal Type Associated Problems Recent Progress Patient-Stated? Author Blood Pressure < 140/90 Blood Pressure 164/77(2024 9:30 AM EDT) No Laura Brooke, RMA Maintain a healthy diet, exercise regularly and maintain an ideal body weight General No Faiza Mccollum CCMA Stay Tobacco Free Lifestyle No Faiza Mccollum CCMA Medical Devices Implanted Type Area Real Estate Legal Assistant Device Identifier Shelf Expiration Date Model / [...] (NO STAIN) STAT 12/05/2024 10:25 AM EDT HEPATITIS B SURFACE ANTIGEN Routine 12/05/2024 10:24 AM EDT HIV AG/AB Routine 12/05/2024 10:24 AM EDT GILEAD TESTING PANEL Routine 12/05/2024 10:24 AM EDT PROCALCITONIN STAT 12/05/2024 10:24 AM EDT LACTIC ACID STAT 12/05/2024 10:24 AM EDT TROPONIN-T HIGH SENSITIVITY BASELINE W/ REFLEX STAT 12/05/2024 10:24 AM EDT NT PROBNP STAT 12/05/2024 10:24 AM EDT COMPREHENSIVE METABOLIC PANEL STAT 12/05/2024 10:24 AM EDT XR CHEST AP PORTABLE STAT 12/05/2024 9:25 AM EDT SALINE LOCK IV STAT 12/05/2024 8:51 AM EDT EK EKG 12 LEAD STAT 12/05/2024 8:13 AM EDT COATING MIXER TENDER CYTOLOGY REPORT Routine 06/30/2011 4 :24 AM EDT WW BREAST SONOGRAM Routine 01/01/2005 2: 00 PM EDT from Last 3 Months or Most Recently Relevant to Health Maintenance Results * SCANNED EKG (12/06/2024 1:01 PM EDT) Anatomical Region Laterality Modality Other 12/06/2024 1:01 PM EDT us Unknown Provider IMG ECG ORDERABLES Final Result * (ABNORMAL) BLOOD GAS, VENOUS (12/05/2024 11:18 AM EDT) pH Venous 7.33 7.32 - 7.42 pH 12/05/2024 11:33 AM EDT [facility] pCO2 Venous 56(H) 41 - 51 mmHg 12/05/2024 11:33 AM EDT [facility] pO2 Venous <42(H) 25 - 40 mmHg 12/05/2024 11:33 AM EDT [facility] Comment:Interpret with cauti on. Not recommended to evaluate patient's oxygenation status. Base Excess Norman 2.3 mmol/L 11:33 AM EDT [facility] Hco3 Venous 28.7(H) 24.0 - 28.0 mmol/L 12/05/2024 11:33 AM EDT [facility] CO2 Total Norman 27 25 - 29 mmol/L 12/05/2024 11:33 AM EDT [facility] O2 Sat. Venous 25.8(L) 40.0 - 70.0 % 12/05/2024 11:33 AM EDT [facility] Inspired O2 RA 12/05/2024 11:33 AM EDT [facility] Blood VENOUS BLOOD / Unknown Venipuncture / Unknown 12/05/2024 11:18 AM EDT 12/05/2024 11:26 AM EDT us Ross Bunn CUSTOMS OFFICER CHEMISTRY ORDERABLES Final Result [facility] [address] [facility] , [address] [place] [phone] * (ABNORMAL) CBC WITH DIFF (12/05/2024 11:10 AM EDT) Pathologist [facility] WBC 9.5 3.7 - 10.3 x10(3)/mcL 12/05/2024 11:20 AM EDT [facility] RBC 5.33(H) 3.90 - 5.20 x10(6)/mcL 12/05/2024 11:20 AM EDT [facility] Hgb 10.7(L) 11.2 - 15.7 g/dL 12/05/2024 11:20 AM EDT [facility] Hct 36.4 34.0 - 45.0 % 12/05/2024 11:20 AM EDT [facility] MCV 68.3(L) 80.0 - 100.0 fL 12/05/2024 11:20 AM EDT [facility] MCH 20.1(L) 26.0 - 34.0 pg 12/05/2024 11:20 AM EDT [facility] MCHC 29.4(L) 30.7 - 35.5 g/dL 12/05/2024 11:20 AM EDT [facility] RDW 18.6(H) <=14.9 % 12/05/2024 11:20 AM EDT [facility] Platelet 178 155 - 369 x10(3)/mcL 12/05/2024 11:20 AM EDT [facility] MPV 9.8 8.8 - 12.5 fL 12/05/2024 11:20 AM EDT [facility] Neut Percent 68.8 % 12/05/2024 11:20 AM EDT [facility] Comment:Neutrophils equals s egs plus bands Imm Gran% 0.2 % 12/05/2024 11:20 AM EDT [facility] Comment:Automated count of m etamyelocytes, myelocytes and promyelocytes. Lymph Percent 18.7 % 12/05/2024 11:20 AM EDT [facility] Nicollet Percent 7.9 % 12/05/2024 11:20 AM EDT [facility] Eos Percent 4.0 % 12/05/2024 11:20 AM EDT [facility] Baso Percent 0.4 % 12/05/2024 11:20 AM EDT [facility] Neut # 6.5(H) 1.6 - 6.1 x10(3)/mcL 12/05/2024 11:20 AM EDT [facility] Comment:Neutrophils equals s egs plus bands IMMGRAN# 0.0 0.0 - 0.1 x10(3)/mcL 12/05/2024 11:20 AM EDT [facility] Comment:Automated count of m etamyelocytes, myelocytes and promyelocytes. An absolute IG <0.1 is reported as 0.0. Lymph # 1.8 1.2 - 3.9 x10(3)/[facility] 12/05/2024 11:20 AM EDT [facility] Nicollet # 0.8 0.3 - 0.9 x10(3)/[facility] 12/05/2024 11:20 AM EDT [facility] Eos# 0.4 0.0 - 0.5 x10(3)/[facility] 12/05/2024 11:20 AM EDT [facility] Baso # 0.0 0.0 - 0.1 x10(3)/[facility] 12/05/2024 11:20 AM EDT [facility] Blood VENOUS BLOOD / Unknown Venipuncture / Unknown 12/05/2024 11:10 AM EDT 12/05/2024 11:14 AM EDT Ross Bunn CUSTOMS OFFICER HEMATOLOGY ORDERABLES Joy l Result Performing Organization Address [facility]/ZIP Co de Phone Number [place] [phone] * HIV AG/AB (12/05/2024 10:24 AM EDT) [facility] HIV Ag/AB Non-Reacti ve Non-Reacti ve 12/05/2024 12:41 PM EDT [facility] Comment:Negative for HIV-1 a ntigen and anti-HIV-1/anti-HIV-2 antibodies. Blood VENOUS BLOOD / Unknown Venipuncture / Unknown 12/05/2024 10:24 AM EDT 12/05/2024 10:35 AM EDT Narrative [facility] - 12/05/2024 12:41 PM EDT Test performed using Adin Elecsys electrochemiluminescence immunassay (ECLIA). Ross Bunn APRN IMMUNOLOGY ORDERABLES Joy l Result Performing Organization Address [facility]/ZIP Co de Phone Number [facility] [address] [facility], [place] [address] * (ABNORMAL) TROPONIN-T HIGH SENSITIVITY BASELINE W/ REFLEX (12/05/2024 10:24 AM EDT) [id number] 18(H) <14 ng/L 12/05/2024 10:53 AM EDT [facility] Blood VENOUS BLOOD / Unknown Venipuncture / Unknown 12/05/2024 10:24 AM EDT 12/05/2024 10:31 AM EDT Narrative [facility] - 12/05/2024 10:53 AM EDT Ingestion of esme doses of biotin (>5 mg/day) taken within 8 hours of drawing blood sample can interfere with this immunoassay test. Ross Bunn CUSTOMS OFFICER CHEMISTRY ORDERABLES Final Result [facility] [address] [place] [address] * PROCALCITONIN (12/05/2024 10:24 AM EDT) Pathologist [facility] Procalcitonin <0.05 <=0.49 ng/mL 12/05/2024 11:36 AM EDT [facility] Blood VENOUS BLOOD / Unknown Venipuncture / Unknown 12/05/2024 10:24 AM EDT 12/05/2024 10:35 AM EDT Adryan [facility] - 12/05/2024 11:36 AM EDT Procalcitonin <0.50 [...] progression to severe sepsis and/or septic shock. Ross Bunn APRN CHEMISTRY ORDERABLES Final Result Performing Organization Address [facility] Phone Number [facility] [address] , [place] [address] * HEPATITIS B SURFACE ANTIGEN (12/05/2024 10:24 AM EDT) Pathologist [facility] Hep Bs Ag Non-Reacti ve Non-React marcos 12/05/2024 12:41 PM EDT [facility] [employer] [facility] Comment:HBsAg not detected. Does not exclude possibility of exposure to HBV. Blood VENOUS BLOOD / Unknown Venipuncture / Unknown 12/05/2024 10:24 AM EDT 12/05/2024 10:35 AM EDT Adryan [facility] [employer] [facility] - 12/05/2024 12:41 PM EDT Test performed using Adin Elecsys electrochemiluminescence immunassay (ECLIA). Ross Bunn APRN CHEMISTRY ORDERABLES Final Result Performing Organization Address [facility] Number [facility] [employer] [address] [place] [phone] * (ABNORMAL) NT PROBNP (12/05/2024 10:24 AM EDT) [facility] NT Pro-BNP 597(H) <=192 pg/mL 12/05/2024 10:53 AM EDT [facility] Blood VENOUS BLOOD / Unknown Venipuncture / Unknown 12/05/2024 10:24 AM EDT 12/05/2024 10:31 AM EDT [facility] - 12/05/2024 10:53 AM EDT An NT pro-BNP level less than 300 pg/mL in any patient, regardless of age, effectively rules out acute CHF with a 99% negative predictive value. Ingestion of esme doses of biotin (>5 mg/day) taken within 8 hours of drawing blood sample can interfere with this immunoassay test. us Ross Bunn APRN CHEMISTRY ORDERABLES Final Result Performing Organization Address City/[facility]/ZIP Co de Phone Number [facility] [address] [place] [address] * LACTIC ACID (12/05/2024 10:24 AM EDT) Lactic Acid 1.2 0.5 - 1.9 mmol/L 12/05/2024 11:08 AM EDT [facility] Blood VENOUS BLOOD / Unknown Venipuncture / Unknown 12/05/2024 10:24 AM EDT 12/05/2024 10:31 AM EDT us Ross Bunn APRN CHEMISTRY ORDERABLES Final Result Performing Organization Address [facility] de Phone Number [facility] [address] [place] [address] * (ABNORMAL) COMPREHENSIVE METABOLIC PANEL (12/05/2024 10:24 AM EDT) Sodium 132(L) 136 - 145 mmol/L 12/05/2024 10:50 AM EDT [facility] Potassium 3.8 3.5 - 5.0 mmol/L 12/05/2024 10:50 AM EDT [facility] Chloride 96(L) 98 - 107 mmol/L 12/05/2024 10:50 AM EDT [facility] Total CO2 22 22 - 29 mmol/L 12/05/2024 10:50 AM EDT [facility] Anion Gap 14 7 - 16 mmol/L 12/05/2024 10:50 AM EDT [facility] Calcium 8.9 8.6 - 10.4 mg/dL 12/05/2024 10:50 AM EDT [facility] Glucose Lvl 130(H) 70 - 99 mg/dL 12/05/2024 10:50 AM EDT [facility] BUN 9 6 - 20 mg/dL 12/05/2024 10:50 AM EDT [facility] Creatinine 0.52 0.51 - 1.30 mg/dL 12/05/2024 10:50 AM EDT [facility] Albumin 3.9 3.5 - 5.2 gm/dL 12/05/2024 10:50 AM EDT [facility] Total Protein 7.0 6.4 - 8.3 gm/dL 12/05/2024 10:50 AM EDT [facility] Bili Total 0.4 0.2 - 1.3 mg/dL 12/05/2024 10:50 AM EDT [facility] ALT 12 <=41 U/L 12/05/2024 10:50 AM EDT [facility] AST 18 <=40 U/L 12/05/2024 10:50 AM EDT [facility] Alk Phos 155(H) 36 - 123 U/L 12/05/2024 10:50 AM EDT [facility] eGFR (CKD-EPIcr 2020) 114 >=60 mL/min/1.7 3 m2 12/05/2024 10:50 AM EDT [facility] Comment:Estimated GFR was ca lculated using the CKD-EPIcr (2020) equation refit without race. The equation is recommended by the National Kidney Foundation - [place] [employer] of Nephrology Task Force. Blood VENOUS BLOOD / Unknown Venipuncture / Unknown 12/05/2024 10:24 AM EDT 12/05/2024 10:31 AM EDT us Ross Bunn CUSTOMS OFFICER CHEMISTRY ORDERABLES Final Result [facility] [address] [place] [address] * XR CHEST AP PORTABLE (12/05/2024 9:25 [...] please contactthe office of the ordering clinician. us Ross Bunn APRN IMG DIAGNOSTIC IMAGING ORD ERABLES Final Result * EK EKG 12 LEAD (12/05/2024 8:13 AM EDT) Anatomical Region Laterality Modality Electrocardiogra phy 12/05/2024 8:21 AM EDT Impressions 12/05/2024 10:[address] [facility] Test Date: 2024-12-05 Pat Name: SISSY AYOUB Department: DEPID Room: Gender: Female Journal Clerk: Sw : 1975 Requested By: [facility] Order Number: [id number] Reading MD: Harley Shaw Measurements Intervals Steele Rate: 105 P: -3 VA: 132 QRS: 1 QRSD: 90 T: 19 QT: 332 QTc: 440 Interpretive Statements SINUS TACHYCARDIA MODERATE VOLTAGE CRITERIA FOR LVH, CONSIDER NORMAL VARIANT NONSPECIFIC T-WAVE ABNORMALITY ABNORMAL RHYTHM ECG Electronically Signed On 12-05-2024 10:15:17 EDT by Harley Shaw Narrative Procedure Note Harley Shaw MD - 12/05/2024 [facility]PRESSION [facility] Test Date: 2024-12-05 Pat Name: SISSY AYOUB Department: DEPID Room: Gender: Female Journal Clerk: Sw9 : 1975 Requested By: [facility] Order Number: [id number] Reading MD: Harley Shaw Measurements Intervals Steele Rate: 105 P: -3 VA: 132 QRS: 1 QRSD: 90 T: 19 QT: 332 QTc: 440 Interpretive Statements SINUS TACHYCARDIA MODERATE VOLTAGE CRITERIA FOR LVH, CONSIDER NORMAL VARIANT NONSPECIFIC T-WAVE ABNORMALITY ABNORMAL RHYTHM ECG Electronically Signed On 12-05-2024 10:15:17 EDT by Harley Shaw us Rosalino Toledo MD IMG ECG ORDERABLES Final Resul t * COATING MIXER TENDER CYTOLOGY REPORT (06/30/2011 4:24 AM EDT) Garment [facility] Cytology Report PATIENT NAME:SISSY AYOUB [facility] Cytology Report Accession Number Collected Date/Time Received Date/Time [id number] 06/30/11 04:24 EDT 07/01/11 04:24 EDT GY [...] confirmed before definitive therapy. Processed using the ThinPrep Returned Goods Repairer automated cytology screening device (ScreachTV). Mover: MARGARITO 07/02/2011 Completed by: KYA Leonardo (Electronically signed by) 07/02/2011 [facility] 06/30/2011 4:24 AM EDT us Keisha Jacobson [facility] PATHOLOGY ORDERABLES Final Result [facility] [address] [place] [address] * MM BREAST SONOGRAM (01/01/2005 2:00 PM EDT) Anatomical Region Laterality Modality Other 01/01/2005 2:00 PM EDT Narrative 01/02/2005 9:23 AM EDT Procedure- BREAST SONOGRAM Breast Ultrasound RIGHT BREAST ULTRASOUND, [...] performed. IMPRESSION- No radiographic evidence of malignancy ([id number]) The patient's palpable abnormality is in the [...] mail of the results of this examination. Form Grader Operator- CJ Chaney Radiologist- COLE FAJARDO MD Released Date Time- 01/02/05922 Procedure Note Cole Fajardo R - 05/15/2009 Procedure- BREAST SONOGRAM Breast Ultrasound RIGHT BREAST ULTRASOUND, [...] performed. IMPRESSION- No radiographic evidence of malignancy ([id number]) The patient's palpable abnormality is in the [...] mail of the results of this examination. Form Grader Operator- CJ PIPER Reading Radiologist- COLE FAJARDO MD Released Date Time- 01/02/05 0923 us U Unknown IMG SE [facility] RAD HISTORICAL Joy l Result from Last 3 Months or Most Recently Relevant to Health Maintenance Insurance [employer] MEDICARE HMO MR Member Subscriber Plan / Payer (Ef fective 2013-Present) Name:Sissy Ayoub Relation to Subscriber:Self Name:Sissy Ayoub Payer ID:[id number] ([facility]) Type:Not on file Address: [address] [id number] [place] HU[employer] MEDIC[place] HMO [place] HU[employer] MEDIC[place]MO [place] Advance Directives For more information, please contact: [phone] * Full Code (Latest Code Status on File) Date Activated Date Inactivated Comments 07/11/2022 4:14 PM 07/12/2022 9:29 PM * Full Code Date Activated Date Inactivated Comments 01/05/2012 7:28 PM 01/08/2012 8:00 PM Care Teams Commercial Driver Relationship Specialty Start Date End Date Garcia Villavicencio MD [address] [place] [address] PCP - OBGYN 07/24/09 Garcia Villavicencio MD [address] [place] [address] PCP - Pediatrics 07/24/09 Garcia Villavicencio MD [address] [place] [address] PCP - Behavioral Health 07/24/09 Josiah Savage MD PCP - Hematology/Oncology 07/31/09 James Silveira MD [address] [place] [address] PCP - General Family Medicine 08/08/15
--- OUTSIDE RECORDS SUMMARY | 2024-12-07 14:29 | XMS_ITS | Encounter Summary ---
Author Organization [facility] Address [address] [place] [address] Care Team Providers Care Candy Waffle Assembler Name Role Phone Ricky Zelaya MD Primary Care Provider [phone] None, None Primary Care Provider Unavailabl e Reason for Visit * Reason Comments Medications Refill Encounter Details Date Type Department Care Team (Late st Contact Info) Description 04/15/2013 Refill [facility] Physicians - Primary Care, [place] [address] [place] [address] [place] [address] Medications Refill Social History Tobacco Use Types [...] on filedocumented in this encounter Care Teams Candy Waffle Assembler Relationship Specialty Start Date End Date Ricky Zelaya MD PCP - General Family Medicine 06/18/11 01/02/15 None, None [address] [place] [address] PCP - General 01/03/15 documented as of this encounter
--- OUTSIDE RECORDS SUMMARY | 2024-12-07 14:29 | XMS_ITS | Clinical Summary ---
Author Organization [facility] Address [address] [place] [address], [address] [place] [address] Care Team Providers Care Car Dryer Name Role Phone Tierney Álvarez MD Primary [...] Documents on File Type Date Recorded Patient Drug Abuse Program Coordinator Expl anation ACP-Advance Directive 08/29/2012 6:57 AM [employer]-Advance Directive 07/18/2010 3:26 PM Care Teams Car Dryer Relationship Specialty Start Date End Date Tierney Álvarez MD PCP - General 06/07/11
--- OUTSIDE RECORDS SUMMARY | 2024-12-07 14:29 | XMS_ITS | Encounter Summary ---
Author Organization [facility] Address [address] [place] [address] Care Team Providers Care Lotus Notes Developer Name Role Phone Ricky Zelaya MD Primary Care Provider [phone] None, None Primary Care Provider Unavailabl e Reason for Visit * Reason Comments Medications Refill Encounter Details Date Type Department Care Team (Late st Contact Info) Description 07/16/2011 Refill [facility] Physicians - Primary Care, [place] [address] [place] [address] [place] [address] Medications Refill Social History Tobacco Use Types [...] on filedocumented in this encounter Care Teams Lotus Notes Developer Relationship Specialty Start Date End Date Ricky Zelaya MD PCP - General Family Medicine 06/18/11 01/02/15 None, None [address] [place] [address] PCP - General 01/03/15 documented as of this encounter
[2024-12-07 15:27] VITALS: BP 195/108; PULSE 100; O2SAT 96
--- NOTE | 2024-12-07 15:34 | XR_ITS ---
FINAL REPORT CLINICAL HISTORY: Shortness of breath COMPARISON: None FINDINGS: CHEST 1 VIEW There is mild cardiomegaly. The mediastinum is normal. There are coarse interstitial opacities at the lung bases, probably chronic. There is no focal infiltrate or edema. There are no pleural effusions. There is no pneumothorax. There is no osseous abnormality. IMPRESSION: Chronic changes without acute cardiopulmonary process Reviewed, Interpreted and Dictated by Pradeep Mansfield MD Transcribed by Jennifer Reinoso Authenticated and [facility]
--- NOTE | 2024-12-07 15:34 | CA_ITS ---
FINAL REPORT TECHNIQUE: Ultrasound images of the deep venous system were obtained from the left groin to the calf veins. CLINICAL HISTORY: pain swelling with redness in left lower leg post injury FINDINGS: The deep venous system is normally compressible. Normal flow is identified. IMPRESSION: No evidence of left lower extremity DVT. Reviewed, Interpreted and Dictated by Pradeep Mansfield MD Transcribed by Juani Osborn Authenticated and [facility]
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
[2024-12-07 15:57] VITALS: BP 182/102; PULSE 101; O2SAT 99
[2024-12-07] MEDS: KETOROLAC 30MG/ML VIAL 30 MG IV (15:58)
[2024-12-07] MEDS: ACETAMINOPHEN 1,000MG/100ML VIAL 1000 MG IV (15:58)
[2024-12-07 16:00] VITALS: BP 172/105; PULSE 95; O2SAT 97
[2024-12-07 16:02] LABS: Hematocrit 37.5 % (37.0-47.0); Hemoglobin 10.9 g/dL (12.2-16.2); Immature Granulocytes % 0.4 %; Mean Corpuscular HGB Conc 29.1 g/dL (31.8-35.4); Mean Corpuscular Hemoglobin 19.9 pg (27.0-31.2); Mean Corpuscular Volume 68.6 fl (81-99); Nucleated Red Blood Cells % 0 %; Platelet Count 391 K/mm3 (142-424); Red Blood Count 5.47 M/mm3 (4.20-5.40); Red Cell Distribution Width-SD 45.6 fL; White Blood Count 8.1 K/mm3 (4.8-10.8)
[2024-12-07 16:15] VITALS: PULSE 99; O2SAT 95
[2024-12-07 16:16] LABS: Alanine Aminotransferase 18 U/L (12-78); Albumin Level 3.9 g/dl (3.5-5.0); Albumin/Globulin Ratio 1.4 (1.1-1.8); Alkaline Phosphatase 186 U/L (38-126); Anion Gap 14.0 mEq/L (5-15); Aspartate Amino Transferase 25 U/L (14-36); Bilirubin,Total 0.5 mg/dl (0.2-1.3); Blood Urea Nitrogen 10 mg/dl (7-17); Calcium 8.9 mg/dl (8.4-10.2); Carbon Dioxide 27 mmol/L (22.0-30.0); Chloride 101 mmol/L (98-107); Creatinine Clearance Estimated 119 mL/min (50-200); Creatinine,Serum 0.50 mg/dl (0.52-1.04); Estimated Glomerular Filt Rate 132 ml/min (>60); GFR (African American) 159 ML/MIN (>60); Globulin 2.8 g/dL (1.3-3.2); Glucose 118 mg/dl (74-100); Lipase 17 U/L (23-300); Magnesium 1.6 mg/dl (1.6-2.3); Potassium 4.0 mmoL/L (3.5-5.1); Sodium 138 mmol/L (136-145); Total Protein,Serum 6.7 g/dl (6.3-8.2)
--- NOTE | 2024-12-07 16:18 | PC.NURSE ---
Nishi PALMER is deferring blood cultures at this time.
--- NOTE | 2024-12-07 16:22 | ECG_ITS ---
APPROVED REPORT Exam: Resting ECG HR:97 bpm ECG Measurements Heart Rate 97 AXES MA 147 P 52 QRSd 89 QRS 33 QT 341 T 53 QTc 395 Conclusion EKG showed normal sinus rhythm without acute ST or T wave changes concerning for ischemia Electronically signed by : Rachel Miranda, 12/08/2024 01:57:17
[2024-12-07 16:24] LABS: NT Pro Brain Natriuretic Pep. 483 pg/mL (0-125)
[2024-12-07 16:27] LABS: Troponin I 0.02 ng/ml (0.00-0.034)
--- NOTE | 2024-12-07 18:12 | PC.NURSE ---
asked pt again for urine, unable to provide specimen.
[2024-12-07 18:21] VITALS: BP 165/89; PULSE 85; RESP 18; TEMP 36.8; O2SAT 96
== END 2024-12-07 18:38 | disposition home or self-care (01) ==
PROVIDERS: Nurse Practitioner; Emergency Provider Student in an Organized Health Care Education/Training Program; PCP Family Medicine
DX: L03.116 Cellulitis of left lower limb (principal); R60.0 Localized edema; M79.662 Pain in left lower leg; F17.210 Nicotine dependence, cigarettes, uncomplicated; E11.9 Type 2 diabetes mellitus without complications
CPT/HCPCS: 71045; 80053; 83605; 83690; 83735; 83880; 84484; 85025; 93005; 93971; 96365; 96366; 96375; 99285; J0131; J0696; J1885